=== PATIENT | male | born 2000 | race Caucasian/White ===

== ENCOUNTER 2022-12-28 18:43 | Emergency (ER) | payer OTHER, BC, SELFPAY ==
[2022-12-28 18:53] VITALS: BP 167/103; PULSE 82; RESP 18; TEMP 37.8; O2SAT 98; BMI 30.3
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
[2022-12-28] MEDS: Acetaminophen 325 MG TABLET 975 MG PO (21:14)
[2022-12-28] MEDS: Lidocaine 4 % Patch ADH..PATCH 1 PATCH TRANSDERMA (21:15)
[2022-12-28] MEDS: Ketorolac Tromethamine 15 MG/ML VIAL IM (21:15)
== END 2022-12-28 21:27 | disposition home or self-care (01) ==
PROVIDERS: Emergency Provider Student in an Organized Health Care Education/Training Program
DX: Z04.1 Encounter for examination and observation following transport accident (principal); M62.838 Other muscle spasm; M54.2 Cervicalgia
CPT/HCPCS: 96372; 99283; 99284; J1885

== ENCOUNTER 2024-07-03 01:00 | Emergency (ER) | payer BC, SELFPAY ==
[2024-07-03 01:26] VITALS: BP 122/73; PULSE 87; RESP 20; TEMP 36.4; O2SAT 98; BMI 34.0
[2024-07-03] MEDS: Fluorescein Sodium STRIP 1 STRIP EYE-RIGHT (05:39)
[2024-07-03] MEDS: Tetracaine HCl/PF 0.5% Oph Sol 4 ML DROPS 1 DROP EYE-RIGHT (05:39)
[2024-07-03] MEDS: Ketorolac Tromethamine 60 MG/2 ML VIAL IM (05:39)
--- NOTE | 2024-07-03 05:45 | ED_ITS ---
HPI - Eye Problem General Chief complaint: Eye Problems Stated complaint: dog stepped on eye and vision is blurry now Time Seen by Provider: 07/03/24 05:16 Source: patient Mode of arrival: ambulatory Limitations: no limitations History of Present Illness ED Provider: Dr. Liz Elam HPI Narrative: patient comes to the emergency room complaining of right-sided eye pain. Patient states that he was laying down in bed, his dog jumped on top of him and accidentally scratched his right eyeball with its paw patient states it is very painful and erythematous. Patient states that he can see, does not use contact lenses. Related Data Previous Rx's ?Medication ?Instructions ?Recorded cyclobenzaprine 5 mg tablet 5 mg PO BEDTIME PRN muscle spasm 12/28/22 #4 tabs ketorolac 10 mg tablet 10 mg PO Q6H PRN pain 5 days #20 12/28/22 tabs erythromycin 5 mg/gram (0.5 %) eye 0.5 inch ophthalmic (eye) TID #3.5 07/03/24 ointment grams ketorolac 0.4 % eye drops 1 drp ophthalmic (eye) QID PRN 07/03/24 pain 4 days #5 mL ketorolac 10 mg tablet 10 mg PO Q8H #12 tabs 07/03/24 Allergies Allergy/AdvReac Type Severity Reaction Status Date / Time No Known Allergies Allergy Verified 07/03/24 01:27 Review of Systems Review of Systems: Constitutional : No Weight loss, No Fever, No Chills, No Night Sweats, No Fatigue, No Malaise ENT/Mouth : No Hearing loss, No Ear Pain, No Nasal Congestion, No Sinus Pain, No Hoarseness, No sore throat, No Rhinorrhea, No Swallowing Difficulty Eyes: complaining of right eye pain, eyelid swelling, photophobia Cardiovascular : No Chest Pain, No SOB, No Dyspnea on Exertion, No Orthopnea, No Edema, No Palpitations Respiratory : No Cough, No Sputum, No Wheezing, No Smoke Exposure, No Dyspnea Gastrointestinal : No Nausea, No Vomiting, No Diarrhea, No Constipation, No abdominal Pain, No Hematochezia, No Melena Genitourinary : no irregular bleeding, No Dysuria, No Urinary Frequency, No Hematuria, No Urinary Incontinence, No Urgency, No Flank Pain, No Urinary Flow Changes, No Hesitancy Musculoskeletal : No joint pain, No Myalgias, No Joint Swelling Skin : No Skin Lesions, No rash Neuro : No Weakness, No Numbness, No Paresthesias, No Loss of Consciousness, No Dizziness, No Headache Psych : No Anxiety/Panic, No Depression, No SI/HI/AH/VH, No Social Issues, Heme/Lymph: No Bruising, No Bleeding,No Lymphadenopathy Endocrine : No Polyuria, No Polydipsia, No Temperature Intolerance [facility] Past Medical History Medical History Bipolar 1 disorder Social History Social History Smoked in Last 30 Days: Yes Use of substances other than those prescribed or required for medical reasons: Yes Substance Use Type: Marijuana Advance Directives: No Advance Directives Information Provided: Yes Physical Exam Vital Signs: Vital Signs: Last Vital Signs Temp 97.5 F 07/03/24 01:26 Pulse 87 07/03/24 01:26 Resp 20 07/03/24 01:26 BP 122/73 07/03/24 01:26 Pulse Ox 98 07/03/24 01:26 O2 Del Method Room Air 07/03/24 01:26 BMI result Body Mass Index 34.0 Const: Other: Appearance: Alert. Oriented X3. No acute distress. Eyes: Pupils equal, round and reactive to light. under Wood's lamp with fluorescein stain, I was able to visualize a U shaped corneal abrasion, negative Latrice sign ENT: Pharynx normal. Neck: Normal inspection. Neck supple. No lymph nodes noted. No crepitus CVS: Normal heart rate and rhythm. Pulses normal. Normal S1 and S2 Respiratory: No respiratory distress. Breath sounds normal. No Wheezing. No rales Abdomen: Soft and nontender. No rigidity. No distention. Skin: Skin warm and dry. Normal skin color. Normal skin turgor. Extremities: No lower extremity edema. No Lacerations. No Rash Neuro: Oriented X 3. No motor deficit. No sensory deficit. Moving all extremities. No slurred speech. CN 2 through 12 grossly intact Psych: calm, cooperative, normal affect Medications Administered Discontinued Medications Generic Name Dose Route Start Last Admin Trade Name Freq PRN Reason Stop Dose Admin Fluorescein Sodium 1 strip 07/03/24 05:16 07/03/24 05:39 Fluorescein Sodium Strip EYE-RIGHT 07/03/24 05:17 1 strip ONCE ONE Administration Ketorolac Tromethamine 60 mg 07/03/24 05:33 07/03/24 05:39 Ketorolac Tromethamine 60 Mg/2 Ml Vial IM 07/03/24 05:34 60 mg ONCE ONE Administration Tetracaine HCl 1 drop 07/03/24 05:16 07/03/24 05:39 Tetracaine Hcl/Pf 0.5% Oph Jennifer 4 Ml Drops EYE-RIGHT 07/03/24 05:17 1 drop ONCE ONE Administration Medical Decision Making Medical Decision Making MDM Narrative: I discussed the physical exam with the patient, patient has a corneal abrasion. Patient was given IM ketorolac Discharge Plan Discharge Clinical Impression: Corneal abrasion Patient Disposition: Home, Self-Care Instructions: Corneal Abrasion (ED) Additional Instructions: Do not use contact lenses for at least 1 week. Please follow-up with your primary care physician tomorrow. If you have any worsening or new symptoms, please return to the emergency room or call 911 Prescriptions: New erythromycin 5 mg/gram (0.5 %) ointment 0.5 inch ophthalmic (eye) TID Qty: 3.5 0RF ketorolac 0.4 % drops 1 drp ophthalmic (eye) QID PRN (Reason: pain) 4 Days Qty: 5 0RF ketorolac 10 mg tablet 10 mg PO Q8H Qty: 12 0RF Rx Instructions: do not use this medication with other NSAIDs including ibuprofen No Action ketorolac 10 mg tablet 10 mg PO Q6H PRN (Reason: pain) 5 Days Qty: 20 0RF Rx Instructions: Patient received Toradol in the emergency room. cyclobenzaprine 5 mg tablet 5 mg PO BEDTIME PRN (Reason: muscle spasm) Qty: 4 0RF Stand Alone Forms: Work/School Release Print Language: Lithuanian
[2024-07-03 05:50] VITALS: BP 122/73; PULSE 87; RESP 20; TEMP 36.4; O2SAT 98
== END 2024-07-03 05:50 | disposition home or self-care (01) ==
PROVIDERS: Emergency Provider Emergency Medicine
DX: S05.01XA Injury of conjunctiva and corneal abrasion without foreign body, right eye, initial encounter (principal); H53.8 Other visual disturbances; X58.XXXA Exposure to other specified factors, initial encounter; Y93.9 Activity, unspecified; Y92.9 Unspecified place or not applicable; Y99.8 Other external cause status
CPT/HCPCS: 96372; 99284; J1885

== ENCOUNTER 2024-10-13 12:24 | Inpatient (IN) | payer BC, SELFPAY ==
[2024-10-13 12:28] VITALS: BP 150/79; PULSE 96; RESP 18; TEMP 36.9; O2SAT 98; BMI 31.5
--- NOTE | 2024-10-13 12:29 | ED_ITS ---
HPI - General Adult General Chief complaint: Psychiatric Symptoms Stated complaint: crisis Time Seen by Provider: 10/13/24 12:38 Source: patient Mode of arrival: ambulatory Limitations: no limitations History of Present Illness ED Provider: Nancy Ye PA-C HPI narrative: Patient is a 24 year old assigned male at with a history of Bipolar disorder presenting to the emergency department today with increased paranoia, suicidal ideation, and possible ananda. Patient states that over the last 5 days he has only slept a collective 16 hours and feels as though he is becoming more paranoia and manic. Patient states that he woke up this morning and felt as though he could fight god and states that he has had thoughts of hurting himself. Patient states that he is on lamictal and is taking it as directed. Patient denies any dizziness, lightheadedness, abdominal pain, nausea, vomiting, fever, chills, blurry vision, double vision, loss of vision, chest pain, difficulty breathing, shortness of breath, back pain, night sweats, pain with urination, increased urinary frequency, increased urinary urgency, blood in his urine or stool, syncope or a near syncopal episode, recent trauma or falls, bowel incontinence, bladder incontinence, or any other complaints at this time. 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 Relieving factors: none Exacerbating factors: none Associated symptoms: denies other symptoms Treatments prior to arrival: none Related Data Home Medications ?Medication ?Instructions ?Recorded ?Confirmed albuterol sulfate 90 mcg/actuation 2 puff inhalation Q4-6H PRN 10/13/24 10/13/24 aerosol inhaler wheezing cetirizine 10 mg tablet (Zyrtec) 10 mg PO DAILY PRN Allergy Symptoms 10/13/24 10/13/24 lamotrigine 100 mg tablet 100 mg PO DAILY 10/13/24 10/13/24 naproxen 250 mg tablet 250 mg PO BID PRN Pain 10/13/24 10/13/24 trazodone 100 mg tablet 50 - 100 mg PO BEDTIME PRN insomnia 10/14/24 10/14/24 Allergies Allergy/AdvReac Type Severity Reaction Status Date / Time aripiprazole Allergy Depression Verified 10/13/24 12:30 sertraline [From Zoloft] Allergy Depression Verified 10/13/24 12:30 Review of Systems 2 Constitutional: Constitutional: Reports no additional constitutional complaints, Denies chills, Denies fever(s) and Denies night sweats Eyes: Eyes: Reports no additional eye complaints, Denies blurry vision, Denies change in vision, Denies diplopia, Denies eye discharge, Denies loss of vision and Denies eye pain ENT: Denies dizziness Cardiovascular: Cardiovascular: Reports no additional cardiovascular complaints, Denies chest pain, Denies lightheadedness, Denies Loss of Consciousness and Denies dyspnea Respiratory: Respiratory: Reports no additional respiratory complaints and Denies dyspnea Gastrointestinal: Gastrointestinal: Reports no additional gastrointestinal complaints, Denies abdominal pain, Denies melena, Denies hematochezia, Denies change in bowel habits and Denies change in stool character Comments: left buttock cyst Genitourinary: Genitourinary: Reports no additional male genitourinary complaints, Denies hematuria, Denies oliguria, Denies difficulty urinating, Denies dysuria, Denies urinary frequency, Denies urinary hesitancy, Denies urinary incontinence and Denies urinary urgency Musculoskeletal: Musculoskeletal: Reports no additional musculoskeletal complaints, Denies numbness and Denies tingling Neurologic: Denies dizziness, Denies loss of vision, Denies numbness and Denies tingling Psychiatric: Psychiatric: Reports abnormal sleep pattern, Reports paranoia, Denies homicidal ideation and Reports suicidal ideation Endocrine: Endocrine: Reports no additional endocrine complaints Hematologic/Lymphatic: Hematologic/Lymphatic: Reports no additional hematologic/lymphatic complaints Allergic/Immunologic: Allergic/Immunologic: Reports no additional allergic/immunologic complaints [facility] Past Medical History Attestation statement: The following information was validated with the patient. Source: old records reviewed and nursing notes reviewed Medical History Bipolar 1 disorder Social History Social History Alcohol intake: current Alcohol intake frequency: does not drink Smoked in Last 30 Days: No Use of substances other than those prescribed or required for medical reasons: No Substance Use Type: Marijuana Advance Directives: No Advance Directives Information Provided: Yes Physical Exam ED Vital Signs: Vital Signs - 24 hr 10/13/24 12:28 10/13/24 20:00 10/14/24 06:21 Temperature 98.4 F 97.9 F 97.7 F Pulse Rate 96 71 66 Respiratory Rate 18 17 18 Blood Pressure 150/79 H 153/91 H 141/84 H Pulse Oximetry 98 98 99 Oxygen Delivery Method Room Air Room Air Room Air BMI result Body Mass Index 31.5 Const General: cooperative, no acute distress, alert and awake Nutritional Appearance: well nourished Orientation/consciousness: patient oriented x3 [facility] Head: Yes normal to inspection and Yes atraumatic Ears: hearing grossly normal bilaterally and external ears normal General nose exam: Normal external nose present, no nasal discharge noted and no epistaxis Face and sinus: Yes normal facial exam, No abrasion and No laceration Mouth: Normal oral and palatal mucosa present, no drooling and no muffled voice Eyes General: appearance normal, both eyes and all related structures Periorbital: periorbital findings normal Eyelids: Yes eyelids normal Conjunctivae: conjunctivae normal Pupils: Equal, round and reactive pupils present EOM: EOMs intact bilaterally Neck Neck: Yes normal visual inspection, Yes full ROM and Yes no lymphadenopathy Resp Effort & Inspection: normal respiratory effort and able to speak in complete sentences Skin Full body images: 2 1. Small skin tag / wart like structure with no active draining Neuro General: patient oriented x3, moves all extremities and CN's II-XI intact bilaterally Cranial nerves: Yes Equal, round and reactive pupils present Cognition (Neuro): normal cognition Extrem General: Yes normal to inspection, Yes full ROM and Yes capillary refill normal Psych Appearance: grossly normal Mental Status: mental status grossly normal Affect: normal affect Attitude: cooperative Thought content: Suicidality present Course Course Course Narrative: RME performed by Nancy Ye PA-C. Patient is a 24 year old assigned male at presenting to the emergency department with suicidal ideation and concerns of naanda. Patient states he was diagnosed bipolar on an outpatient basis and is now on lamotrigine but he woke up this morning having some suicidal ideation and ananda - feeling as though he can fight god . Detailed physical exam and review of systems are deferred to the boiler repair supervisor. Labs ordered. safety belt installer aware. Reevaluation(s) Reevaluation #1: Time: 08:09 Date: 10/14/24 Provider: Abrahan Philip MD Patient in physician observation for psychiatric evaluation.? No acute events reported overnight. No current complaints. VS stable.? Patient is in bed search status/pending CARE team evaluation. Will continue to monitor. Reevaluation #2: October 14, 2024 11:20 Am patient will be admitted to the psychiatric unit this and the ED observation status Time: 11:20 Medications Administered Generic Name Dose Route Start Last Admin Trade Name Freq PRN Reason Stop Dose Admin Lamotrigine 100 mg 10/13/24 21:00 10/13/24 20:11 Lamotrigine 100 Mg Tablet PO 100 mg BEDTIME CHEMA Administration Trazodone HCl 50 mg 10/13/24 16:47 10/13/24 20:02 Trazodone Hcl 50 Mg Tablet PO 50 mg BEDTIME PRN Administration Insomnia Discontinued Medications Generic Name Dose Route Start Last Admin Trade Name Freq PRN Reason Stop Dose Admin Benzocaine 1 lozenge 10/13/24 19:31 10/13/24 20:01 Throat Lozenge, Medicated Lozenge MUCOUS MEM 10/13/24 19:32 1 lozenge ONCE ONE Administration Loratadine 10 mg 10/13/24 21:45 10/13/24 21:55 Loratadine 10 Mg Tablet PO 10/13/24 21:46 10 mg ONCE ONE Administration Lorazepam 1 mg 10/13/24 15:00 10/13/24 15:26 Lorazepam 1 Mg Tablet PO 10/13/24 15:01 1 mg ONCE ONE Administration Nicotine 21 mg 10/13/24 19:48 10/13/24 19:59 Nicotine 21 Mg Patch.Td24 TRANSDERMA 10/13/24 19:49 21 mg ONCE ONE Administration Medical Decision Making Medical Decision Making MDM Narrative: Patient is a 24 year old assigned male at with a history of Bipolar disorder presenting to the emergency department today with increased paranoia, suicidal ideation, and possible ananda. Patient's physical exam was as noted in the physical exam portion of this note. Patient's cyst on the left buttock appears flat and almost wart like. It is not fluctuant and does not need drained at this time. Patient's blood work was unremarkable. Patient's urine showed no acute process. Patient's EKG was unremarkable. Patient was evaluated by the CARE team who recommended hospitalization for psychiatric stabilization. I explained my physical exam findings as well as all test results to the patient. I answered all questions asked by the patient. Patient will remain in observation until he is admitted here at [facility] for continued psychiatric care or he is transferred to an appropriate psychiatric inpatient facility. Note: I spoke with the patient about his buttock cyst / growth / wart and recommended he follow up on an outpatient basis with a general surgeons office to discuss removal. Differential Diagnosis Differential Diagnoses: The differential diagnosis associated with the presentation includes Bipolar disorder Acute psychosis Suicidal ideation Admission/Observation Consideration of admission/observation: Escalation of care including admission/observation considered Patient will remain in observation until he is admitted here at [facility] for continued psychiatric care or he is transferred to an appropriate psychiatric inpatient facility. Consult Healthcare Provider Management of the patient was discussed with: Behavioral Health Provider (Spoke with the CARE team as noted in the MDM Rationale portion of this note. ) Lab Data [facility] Lab Attestation statement: I reviewed the patient's lab results. My interpretation of these results are in the MDM Rationale portion of this note. 10/13/24 12:46 10/13/24 12:46 Labs: Lab Results 10/13/24 10/13/24 10/13/24 Range/Units 12:46 15:17 19:31 WBC 7.9 (4.8-10.8) X10*3/uL RBC 5.19 (4.60-5.80) X10*6/uL Hgb 14.9 (14.0-18.0) g/dl Hct 41.7 L (42.0-52.0) % MCV 80.3 (80.0-98.0) fL MCH 28.7 (27.0-33.0) pg MCHC 35.7 (31.0-36.0) g/dl RDW 12.3 (11.0-16.0) % Plt Count 307 (160-400) X10*3/uL MPV 10.3 (9.4-12.4) fL Immature Gran % (Auto) 0.3 (0.0-0.4) % Neut % (Auto) 58.7 (45-73) % Lymph % (Auto) 32.2 (20-40) % Whiteside % (Auto) 7.8 (2-11) % Eos % (Auto) 0.4 (0-4) % Baso % (Auto) 0.6 (0-2) % Lymph # (Auto) 2.6 (1.2-4.9) X10*3/uL Whiteside # (Auto) 0.6 (0.1-1.2) X10*3/uL Eos # (Auto) 0.0 (0.0-0.4) X10*3/uL Baso # (Auto) 0.1 (0.0-0.2) X10*3/uL Abs Immat Gran (auto) 0.02 (0.00-0.03) X10*3/uL Absolute Neuts (auto) 4.6 (2.0-8.3) x10*3/uL Absolute Nucleated RBC 0.000 (0.0-0.012) X10*3/uL Nucleated RBC % (auto) 0.0 (0.0-0.2) /100WBC Sodium 140 (135-145) mmol/L Potassium 3.6 (3.3-5.1) mmol/L Chloride 109 H (96-108) mmol/L Carbon Dioxide 23 (22-29) mmol/L Anion Gap 12 (12-20) BUN 11 (9-16) mg/dL Creatinine 1.00 (0.5-1.4) mg/dL Estim Creat Clear Calc 130.7 Estimated GFR > 60 Random Glucose 124 H (60-115) mg/dL Calcium 9.5 (8.4-10.2) mg/dL Total Bilirubin 0.5 (0.0-1.0) mg/dL AST 28 (5-37) U/L ALT 31 (0-40) U/L Alkaline Phosphatase 51 (39-117) U/L Total Protein 7.6 (6.5-8.0) g/dL Albumin 4.9 (3.5-5.0) g/dL Urine Color Yellow Urine Appearance Turbid Urine pH 8.0 (5.0-9.0) Ur Specific [place] >= 1.030 H (1.005-1.025) Urine Protein Trace (Neg-Trace) mg/dL Urine Glucose (UA) Negative (Negative) mg/dL Urine Ketones Trace (Negative) mg/dL Urine Blood Negative (Negative) Urine Nitrite Negative (Negative) Ur Leukocyte Esterase Negative (Negative) Salicylates < 5.0 L (15-30) mg/dL Urine Opiates Screen Not Detected (Not Detect) Ur Buprenorphine Scrn Not Detected (Not Detect) ng/mL Ur Oxycodone Screen Not Detected (Not Detect) ng/mL Urine Methadone Screen Not Detected (Not Detect) ng/mL Urine Fentanyl Screen Not Detected (Not Detect) Acetaminophen < 3 (<30) mcg/mL Ur Barbiturates Screen Not Detected (Not Detect) Ur Phencyclidine Scrn Not Detected (Not Detect) Ur Amphetamines Screen Not Detected (Not Detect) U Benzodiazepines Scrn Not Detected (Not Detect) Urine Cocaine Screen Not Detected (Not Detect) U Marijuana (THC) Screen POSITIVE H (Not Detect) Ethyl Alcohol < 10 mg/dL COVID-19 (MICAELA) Negative (Negative) COVID-19 Clin Com See Note S. pyogenes GrpA TOMAS Negative (Negative) Independent Interpretation I performed an independent interpretation of an: EKG Interpretation: I independently interpreted this EKG and am in agreement with the below findings: Vent. Rate: 88 BPM Atrial Rate: 88 BPM P-R Int: 124 ms QRS Dur: 86 ms QT Int: 344 ms P-R-T Axes: 61 62 50 degrees QTcB Int: 416 ms Normal sinus rhythm with sinus arrhythmia Normal ECG No previous ECGs available DD/ 1240 Critical Care Time Critical Care Time Critical Care Time: Yes Total Critical Care Time: 34 Attestation: I spent 34 minutes of Critical Care Time with this patient. This does not include time spent on separately reported billable procedures. Discharge Plan Discharge Clinical Impression: Suicidal ideation, Cyst of buttocks Bipolar disorder Qualifiers: Active/Remission status: currently active Current bipolar episode type: mixed C urrent episode severity: moderate Qualified Code(s): F31.62 - Bipolar disorder, current episode mixed, moderate Patient Disposition: Admitted As Inpatient Interventions: [place]-Suicide Risk Severity Scale Last Done: 10/13/24 14:11
--- NOTE | 2024-10-13 12:32 | ECG_ITS ---
Test Reason : medical clearance Blood Pressure : */* mmHG Vent. Rate : 88 BPM Atrial Rate : 88 BPM P-R Int : 124 ms QRS Dur : 86 ms QT Int : 344 ms P-R-T Axes : 61 62 50 degrees QTcB Int : 416 ms Normal sinus rhythm with sinus arrhythmia Normal ECG No previous ECGs available Referred By: Nancy Ye Electronically Signed By: Marc Allen
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
[2024-10-13 12:54] LABS: MANUAL DIFF FLAG NO
[2024-10-13 12:57] LABS: Basophils Absolute Auto 0.1 X10*3/uL (0.0-0.2); Basophils Percent Auto 0.6 % (0-2); Eosinophils Percent Auto 0.4 % (0-4); Hematocrit 41.7 % (42.0-52.0); Hemoglobin 14.9 g/dl (14.0-18.0); Imm Gran Abs Auto 0.02 X10*3/uL (0.00-0.03); Imm Gran Pct Auto 0.3 % (0.0-0.4); Lymphocytes Absolute Auto 2.6 X10*3/uL (1.2-4.9); Lymphocytes Percent Auto 32.2 % (20-40); Mean Corpuscular HGB Conc 35.7 g/dl (31.0-36.0); Mean Corpuscular Hemoglobin 28.7 pg (27.0-33.0); Mean Corpuscular Volume 80.3 fL (80.0-98.0); Mean Platelet Volume 10.3 fL (9.4-12.4); Monocytes Absolute Auto 0.6 X10*3/uL (0.1-1.2); Monocytes Percent Auto 7.8 % (2-11); Neutrophils Absolute Auto 4.6 x10*3/uL (2.0-8.3); Neutrophils Percent Auto 58.7 % (45-73); Platelet Count 307 X10*3/uL (160-400); Red Blood Count 5.19 X10*6/uL (4.60-5.80); Red Cell Distribution Width 12.3 % (11.0-16.0); White Blood Count 7.9 X10*3/uL (4.8-10.8)
[2024-10-13 13:08] LABS: COVID-19 Test Negative (Negative); IDNOW Serial# 58CA691E
[2024-10-13 13:20] LABS: Acetaminophen LAB < 3 mcg/mL (<30); Alanine Aminotransferase 31 U/L (0-40); Albumin Level 4.9 g/dL (3.5-5.0); Alkaline Phosphatase 51 U/L (39-117); Anion Gap 12 (12-20); Aspartate Amino Transferase 28 U/L (5-37); Bilirubin Total 0.5 mg/dL (0.0-1.0); Blood Urea Nitrogen 11 mg/dL (9-16); Calcium 9.5 mg/dL (8.4-10.2); Carbon Dioxide 23 mmol/L (22-29); Chloride 109 mmol/L (96-108); Creatinine Clr Calc Pharmacy 130.7; Estimated Glomerular Filt Rate > 60; Ethanol < 10 mg/dL; Glucose Random 124 mg/dL (60-115); Potassium 3.6 mmol/L (3.3-5.1); Salicylate < 5.0 mg/dL (15-30); Sodium 140 mmol/L (135-145); Total Protein 7.6 g/dL (6.5-8.0)
--- NOTE | 2024-10-13 13:54 | MHC.CARE ---
Pt meets the criteria for IPLOC and a Section 12a is in chart. ED provider in agreement.
[2024-10-13 15:25] LABS: Appearance Urine Turbid; Color Urine Yellow; Glucose Urine UA Negative (Negative); Leukocyte Esterase Urine Negative (Negative); Nitrite Urine Negative (Negative); Specific Gravity - Urine >= 1.030 (1.005-1.025); Urine Blood Negative (Negative); Urine Ketones Trace mg/dL (Negative); Urine Protein Trace mg/dL (Neg-Trace)
[2024-10-13] MEDS: LORazepam 1 MG TABLET PO (15:26)
[2024-10-13 15:34] LABS: Amphetamine Screen Urine Not Detected (Not Detect); Barbiturates, Urine Not Detected (Not Detect); Benzodiazepines Screen Urine Not Detected (Not Detect); Buprenorphine Scr Not Detected (Not Detect); Cannabinoid Screen Urine POSITIVE (Not Detect); Cocaine Screen Urine Not Detected (Not Detect); Fentanyl, urine Not Detected (Not Detect); Methadone Screen, Urine Not Detected (Not Detect); Opiate Screen Urine Not Detected (Not Detect); Oxycodone Screen Urine Not Detected (Not Detect); Phencyclidine Screen Urine Not Detected (Not Detect)
--- OUTSIDE RECORDS SUMMARY | 2024-10-13 15:58 | XMS_ITS ---
Author Name [facility] Organization Unknown Care Team Organization Name Specialty Phone Email Start Date End Da te [facility] Not Disclosed Primary Care 11/11/2023 [facility] Not Disclosed Primary Care 11/10/2023
--- NOTE | 2024-10-13 16:35 | PC.NURSE ---
Pt appears to be sleeping, RR even and unlabored, no apparent distress noted
--- NOTE | 2024-10-13 19:15 | PC.NURSE ---
Addendum entered by Mary Johnson 10/13/24 20:09: Pt A&Ox3, requesting lozenges for sore throat and nicotine patch. Pt swabbed for strep. Provider Claudia Washington made aware. New orders given per JUN. Original Note: This marketing copywriter assumed care of this Pt at 1900.
[2024-10-13 19:49] LABS: IDNOW Serial# 6674DD1D; Strep A Nucleic Acid Negative (Negative)
[2024-10-13] MEDS: Nicotine 21 MG PATCH.TD24 TRANSDERMA (19:59)
[2024-10-13 20:00] VITALS: BP 153/91; PULSE 71; RESP 17; TEMP 36.6; O2SAT 98
[2024-10-13] MEDS: Throat Lozenge, Medicated LOZENGE 1 LOZENGE MUCOUS MEM (20:01)
[2024-10-13] MEDS: traZODone HCL 50 MG TABLET PO (20:02)
[2024-10-13] MEDS: lamoTRIgine 100 MG TABLET PO (20:11)
--- NOTE | 2024-10-13 20:33 | PC.NURSE ---
this rn assumed care of pt , pt resting in stretcher, no acute distress noted
[2024-10-13] MEDS: Loratadine 10 MG TABLET PO (21:55)
[2024-10-14 06:21] VITALS: BP 141/84; PULSE 66; RESP 18; TEMP 36.5; O2SAT 99
--- NOTE | 2024-10-14 08:08 | PHA.MEDREC ---
Pharmacy Consult ? Medication Reconciliation Pharmacy has reviewed the medication reconciliation done by RN. Claims Utilized
--- NOTE | 2024-10-14 11:13 | PC.NURSE ---
Assumed care of this patient at 1100, patient resting quietly in BH2, c/o neck pain, will medicate per JUN once delivered by pharmacy. Patient currently assigned bed on M3 awaiting report/transfer.
[2024-10-14 11:53] VITALS: BP 161/98; PULSE 87; RESP 18; TEMP 36.7; O2SAT 100
[2024-10-14 13:01] VITALS: BMI 31.2
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
[2024-10-14] MEDS: Nicotine Polacrilex 2 MG GUM 4 MG BUCCAL ×3 (13:26→18:35)
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
[2024-10-14] MEDS: OLANZapine 5 MG TABLET PO (16:57)
[2024-10-14] MEDS: Nicotine 21 MG PATCH.TD24 TRANSDERMA (18:36)
[2024-10-14 20:25] VITALS: BP 140/85; PULSE 93; RESP 16; TEMP 36.9; O2SAT 97
[2024-10-14] MEDS: traZODone HCL 100 MG TABLET PO (20:34)
[2024-10-14] MEDS: Prazosin HCL 1 MG CAPSULE PO (20:34)
[2024-10-14] MEDS: guanFACINE HCl ER 1 MG TAB.ER.24H PO (20:36)
[2024-10-14] MEDS: lamoTRIgine 25 MG TABLET 125 MG PO (20:36)
[2024-10-14] MEDS: Loratadine 10 MG TABLET PO (20:37)
[2024-10-15 08:00] VITALS: BP 120/78; PULSE 90; RESP 16; TEMP 36.3; O2SAT 97
[2024-10-15 08:11] LABS: Estimated Average Glucose 111 mg/dL; Hemoglobin A1c % 5.5 % (<6.0); Total Hemoglobin (HGBA1C) 3638.7942 umol/L
[2024-10-15] MEDS: Nicotine 21 MG PATCH.TD24 TRANSDERMA (08:14)
[2024-10-15 08:21] LABS: Alanine Aminotransferase 34 U/L (0-40); Albumin Level 4.6 g/dL (3.5-5.0); Alkaline Phosphatase 52 U/L (39-117); Anion Gap 12 (12-20); Aspartate Amino Transferase 26 U/L (5-37); Bilirubin Total 0.3 mg/dL (0.0-1.0); Blood Urea Nitrogen 13 mg/dL (9-16); Calcium 9.6 mg/dL (8.4-10.2); Carbon Dioxide 24 mmol/L (22-29); Chloride 107 mmol/L (96-108); Cholesterol 187 mg/dL (<200); Creatinine Clr Calc Pharmacy 123.8; Estimated Glomerular Filt Rate > 60; Glucose Random 136 mg/dL (60-115); HDL Cholesterol 31 mg/dL (>40); LDL Cholesterol Calculated 124 mg/dL (<100); Potassium 3.9 mmol/L (3.3-5.1); Sodium 139 mmol/L (135-145); Total Protein 7.1 g/dL (6.5-8.0); Triglycerides 161 mg/dL (<150)
--- NOTE | 2024-10-15 09:22 | P.PNPSI_ITS ---
Subjective Subjective Date of Service: 10/15/24 Reason For Visit: Crisis Subjective Notes: Conditional Voluntary Interim History: Active on unit, social with peers. attending groups. Patient reports feeling a lot better ; pt stated, I was able to sleep and not have any nightmares . denies side effects from medications. denies SI/HI/VH/AH. Pt is requesting to discharge on Sunday to be able to return to work. Plan to discharge if continues to improve. Continue current tx plan. Medication Compliance: Yes Side effects from medications: No Attending Groups: Yes Mental Status Exam Mental Status Exam Narrative: Pt is alert and oriented; behavior is cooperative and calm; dressed in casual attire; mood is described as a lot better ; eye contact appropriate; Speech is normal rate, volume and not pressured; thought process is organized; Thought content is on tx; denies SI/HI/VH/AH. Diagnostics Vital Signs (24Hr): Vital Signs - 24 hr 10/14/24 11:53 10/14/24 20:25 10/15/24 08:00 Temperature 98.1 F 98.5 F 97.4 F Pulse Rate 87 93 90 Respiratory Rate 18 16 16 Blood Pressure 161/98 H 140/85 H 120/78 Pulse Oximetry 100 97 97 Oxygen Delivery Method Room Air Room Air Room Air BMI result Body Mass Index 31.2 Labs 10/13/24 12:46 10/15/24 07:43 Labs: Laboratory Results - last 48 hr 10/13/24 10/13/24 10/13/24 12:46 15:17 19:31 WBC 7.9 RBC 5.19 Hgb 14.9 Hct 41.7 L MCV 80.3 MCH 28.7 MCHC 35.7 RDW 12.3 Plt Count 307 MPV 10.3 Immature Gran % (Auto) 0.3 Neut % (Auto) 58.7 Lymph % (Auto) 32.2 [place] % (Auto) 7.8 Eos % (Auto) 0.4 Baso % (Auto) 0.6 Lymph # (Auto) 2.6 [place] # (Auto) 0.6 Eos # (Auto) 0.0 Baso # (Auto) 0.1 Abs Immat Gran (auto) 0.02 Absolute Neuts (auto) 4.6 Absolute Nucleated RBC 0.000 Nucleated RBC % (auto) 0.0 Sodium 140 Potassium 3.6 Chloride 109 H Carbon Dioxide 23 Anion Gap 12 BUN 11 Creatinine 1.00 Estim Creat Clear Calc 130.7 Estimated GFR > 60 Random Glucose 124 H Estimat Average Glucose Hemoglobin A1c % Calcium 9.5 Total Bilirubin 0.5 AST 28 ALT 31 Alkaline Phosphatase 51 Total Protein 7.6 Albumin 4.9 Triglycerides Cholesterol LDL Cholesterol, Calc HDL Cholesterol Urine Color Yellow Urine Appearance Turbid Urine pH 8.0 Ur Specific [place] >= 1.030 H Urine Protein Trace Urine Glucose (UA) Negative Urine Ketones Trace Urine Blood Negative Urine Nitrite Negative Ur Leukocyte Esterase Negative Salicylates < 5.0 L Urine Opiates Screen Not Detected Ur Buprenorphine Scrn Not Detected Ur Oxycodone Screen Not Detected Urine Methadone Screen Not Detected Urine Fentanyl Screen Not Detected Acetaminophen < 3 Ur Barbiturates Screen Not Detected Ur Phencyclidine Scrn Not Detected Ur Amphetamines Screen Not Detected U Benzodiazepines Scrn Not Detected Urine Cocaine Screen Not Detected U Marijuana (THC) Screen POSITIVE H Ethyl Alcohol < 10 COVID-19 (MICAELA) Negative COVID-19 Clin Com See Note S. pyogenes GrpA TOMAS Negative 10/15/24 07:43 WBC RBC Hgb Hct MCV MCH MCHC RDW Plt Count MPV Immature Gran % (Auto) Neut % (Auto) Lymph % (Auto) [place] % (Auto) Eos % (Auto) Baso % (Auto) Lymph # (Auto) [place] # (Auto) Eos # (Auto) Baso # (Auto) Abs Immat Gran (auto) Absolute Neuts (auto) Absolute Nucleated RBC Nucleated RBC % (auto) Sodium 139 Potassium 3.9 Chloride 107 Carbon Dioxide 24 Anion Gap 12 BUN 13 Creatinine 1.05 Estim Creat Clear Calc 123.8 Estimated GFR > 60 Random Glucose 136 H Estimat Average Glucose 111 Hemoglobin A1c % 5.5 Calcium 9.6 Total Bilirubin 0.3 AST 26 ALT 34 Alkaline Phosphatase 52 Total Protein 7.1 Albumin 4.6 Triglycerides 161 H Cholesterol 187 LDL Cholesterol, Calc 124 H HDL Cholesterol 31 L Urine Color Urine Appearance Urine pH Ur Specific [place] Urine Protein Urine Glucose (UA) Urine Ketones Urine Blood Urine Nitrite Ur Leukocyte Esterase Salicylates Urine Opiates Screen Ur Buprenorphine Scrn Ur Oxycodone Screen Urine Methadone Screen Urine Fentanyl Screen Acetaminophen Ur Barbiturates Screen Ur Phencyclidine Scrn Ur Amphetamines Screen U Benzodiazepines Scrn Urine Cocaine Screen U Marijuana (THC) Screen Ethyl Alcohol COVID-19 (MICAELA) COVID-19 Clin Com S. pyogenes GrpA TOMAS Medications Medications Current Medications Acetaminophen (Acetaminophen 325 Mg Tablet) 650 mg PO Q6H PRN PRN Reason: Headache/Pain, Scale 1-10 Al Hydroxide/Mg Hydroxide (Magnesium Hydrox/Alum Hydrox 30 Ml Oral.Susp) 30 ml PO Q6H PRN PRN Reason: Heartburn/Nausea Albuterol Sulfate (Albuterol Sulfate 90 Mcg 8 Gm Inhaler) 2 puff INHALE Q4H PRN PRN Reason: wheezing Guanfacine HCl (Guanfacine Hcl Er 1 Mg Tab.Er.24h) 1 mg PO BEDTIME CHEMA Last Admin: 10/14/24 20:36 Dose: 1 mg Hydroxyzine HCl (Hydroxyzine Hcl 25 Mg Tablet) 25 mg PO Q6H PRN PRN Reason: mild anxiety Lamotrigine (Lamotrigine 25 Mg Tablet) 125 mg PO BEDTIME CHEMA Last Admin: 10/14/24 20:36 Dose: 125 mg Loratadine (Loratadine 10 Mg Tablet) 10 mg PO DAILY PRN PRN Reason: Allergy Symptoms Last Admin: 10/14/24 20:37 Dose: 10 mg Magnesium Hydroxide (Milk Of Magnesia 30 Ml Oral.Susp) 30 ml PO DAILY PRN PRN Reason: Constipation Naproxen (Naproxen 250 Mg Tablet) 250 mg PO BID PRN PRN Reason: Pain, Mild (Pain Scale 1-3) Nicotine (Nicotine 21 Mg Patch.Td24) 21 mg TRANSDERMA DAILY CHEMA Last Admin: 10/15/24 08:14 Dose: 21 mg Nicotine Polacrilex (Nicotine Polacrilex 2 Mg Gum) 4 mg BUCCAL Q2H PRN PRN Reason: Nicotine Cravings Last Admin: 10/14/24 18:35 Dose: 4 mg Olanzapine (Olanzapine 5 Mg Tablet) 5 mg PO Q4H PRN PRN Reason: agitation Last Admin: 10/14/24 16:57 Dose: 5 mg Prazosin HCl (Prazosin Hcl 1 Mg Capsule) 1 mg PO BEDTIME CHEMA; Protocol Last Admin: 10/14/24 20:34 Dose: 1 mg Trazodone HCl (Trazodone Hcl 100 Mg Tablet) 100 mg PO BEDTIME PRN PRN Reason: Insomnia Last Admin: 10/14/24 20:34 Dose: 100 mg Allergies Allergies Allergy/AdvReac Type Severity Reaction Status Date / Time aripiprazole Allergy Depression Verified 10/13/24 12:30 sertraline (From Zoloft) Allergy Depression Verified 10/13/24 12:30 Assessment & Plan Assessment & Plan (1) Bipolar disorder: Qualifiers: Active/Remission status: currently active Current bipolar episode type: mixed Current episode severity: moderate Qualified Code(s): F31.62 - Bipolar disorder, current episode mixed, moderate Status: Acute Code(s): F31.9 - Bipolar disorder, unspecified (2) PTSD (post-traumatic stress disorder): Status: Acute Code(s): F43.10 - Post-traumatic stress disorder, unspecified Plan Patient is a 24-year-old male with history of bipolar disorder and PTSD who self presented to ER due to suicidal ideation secondary to feeling manic, angry and paranoid . Plan: CV 15 minute safety checks Continue home medications Increase lamictal to 125mg PO bedtime Start: Prazosin 1mg PO bedtime Guanfacine 1mg PO bedtime obtain collateral encourage groups discharge planning 10/15: Active on unit, social with peers. attending groups. Patient reports feeling a lot better ; pt stated, I was able to sleep and not have any nightmares . denies side effects from medications. denies SI/HI/VH/AH. Pt is requesting to discharge on Sunday to be able to return to work. Plan to discharge if continues to improve. Continue current tx plan. Patient educated on: diagnosis, medication risk/benefits and therapeutic strategies Reason for continued inpatient stay Substantial Risk for: med/psych decompensation Time Spent With Patient Time: Total time managing care of this patient today _20___ minutes.
[2024-10-15] MEDS: Nicotine Polacrilex 2 MG GUM 4 MG BUCCAL ×3 (11:36→20:53)
--- NOTE | 2024-10-15 15:53 | HO.PM.IMCN ---
History of Present Illness Data of Consult Service Date: 10/15/24 Primary Care Provider: Unknown Physician HPI Reason for consult: Ear pain 24-year-old male with past medical history of PTSD, bipolar disorder, buttocks cyst, and suicidal ideation. Is seen today for reports of ear pain. Patient reports that he has right ear ringing on occasion. This has been going on for the past 3-4 years. 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 Patient reports a history of tubes in his ears at age 8-9 as well as seasonal allergies. He has some nasal congestion, on exam he has no lymphadenopathy, bilateral eardrums are within normal limits. Small amount of dried cerumen in ear canals not obscuring his eardrums. He denies any fever or chills, denies any shortness of breath or chest pain. Patient reports that he takes an allergy pill, has some postnasal drip. Reports that he has brief periods of being unable to hear followed by ringing which is not continuous and lasts for few seconds at a time. Patient reports that he was told he had some swelling in his feet on admission. On exam he has no edema, positive pedal pulses, positive sensation. Review of Systems Review of Systems: Yes all other systems are reviewed and are negative [facility] Medical History Bipolar 1 disorder Social History Household Members: Significant Other Housing: Apartment Do you presently have visiting nurse or other home services: No Alcohol intake: current Alcohol intake frequency: does not drink Patient Tobacco Use Status: Current everyday Tobacco user Tobacco use type: Cigarette Cigarette Packs Per Day: 2 Cigarettes Per Day: 40.0 Smoked in Last 30 Days: Yes Patient Interested in Nicotine Replacement: Yes Patient Given Instructions on How to Stop Smoking: No Second Hand Smoke Exposure: Yes Use of substances other than those prescribed or required for medical reasons: No Substance Use Type: Marijuana Currently Displaying Signs/Symptoms of Drug Intoxication Withdrawal: No Have you been hit, kicked, punched, or otherwise hurt by someone within the past year? If so, by whom?: No Do you feel safe in your current relationship?: Yes Is there a partner from a previous relationship who is making you feel unsafe now?: Yes Are you made to feel afraid or neglected: No Advance Directives: No Advance Directives Information Provided: Yes Do you have thoughts of harming others: None Do you have a plan to hurt others: No Plan Recently lost weight without trying: Yes How much weight loss: 24-33 pounds Eating poorly because of decreased appetite: No Nutrition screen score: 5 Poor oral hygiene: Yes service: No Sexual orientation: Straight/Heterosexual Meds Allergies Allergy/AdvReac Type Severity Reaction Status Date / Time aripiprazole Allergy Depression Verified 10/13/24 12:30 sertraline (From Zoloft) Allergy Depression Verified 10/13/24 12:30 Active Medications: Current Medications Acetaminophen (Acetaminophen 325 Mg Tablet) 650 mg PO Q6H PRN PRN Reason: Headache/Pain, Scale 1-10 Al Hydroxide/Mg Hydroxide (Magnesium Hydrox/Alum Hydrox 30 Ml Oral.Susp) 30 ml PO Q6H PRN PRN Reason: Heartburn/Nausea Albuterol Sulfate (Albuterol Sulfate 90 Mcg 8 Gm Inhaler) 2 puff INHALE Q4H PRN PRN Reason: wheezing Guanfacine HCl (Guanfacine Hcl Er 1 Mg Tab.Er.24h) 1 mg PO BEDTIME [facility] Last Admin: 10/14/24 20:36 Dose: 1 mg Hydroxyzine HCl (Hydroxyzine Hcl 25 Mg Tablet) 25 mg PO Q6H PRN PRN Reason: mild anxiety Lamotrigine (Lamotrigine 25 Mg Tablet) 125 mg PO BEDTIME CHEMA Last Admin: 10/14/24 20:36 Dose: 125 mg Loratadine (Loratadine 10 Mg Tablet) 10 mg PO DAILY PRN PRN Reason: Allergy Symptoms Last Admin: 10/14/24 20:37 Dose: 10 mg Magnesium Hydroxide (Milk Of Magnesia 30 Ml Oral.Susp) 30 ml PO DAILY PRN PRN Reason: Constipation Naproxen (Naproxen 250 Mg Tablet) 250 mg PO BID PRN PRN Reason: Pain, Mild (Pain Scale 1-3) Nicotine (Nicotine 21 Mg Patch.Td24) 21 mg TRANSDERMA DAILY [facility] Last Admin: 10/15/24 08:14 Dose: 21 mg Nicotine Polacrilex (Nicotine Polacrilex 2 Mg Gum) 4 mg BUCCAL Q2H PRN PRN Reason: Nicotine Cravings Last Admin: 10/15/24 14:10 Dose: 4 mg Olanzapine (Olanzapine 5 Mg Tablet) 5 mg PO Q4H PRN PRN Reason: agitation Last Admin: 10/14/24 16:57 Dose: 5 mg Prazosin HCl (Prazosin Hcl 1 Mg Capsule) 1 mg PO BEDTIME CHEMA; Protocol Last Admin: 10/14/24 20:34 Dose: 1 mg Trazodone HCl (Trazodone Hcl 50 Mg Tablet) 50 mg PO BEDTIME MRX1 PRN PRN Reason: Insomnia Home Medications ?Medication ?Instructions ?Recorded ?Confirmed ?Last Taken ?Type albuterol sulfate 90 mcg/actuation 2 puff inhalation Q4-6H PRN 10/13/24 10/13/24 Unknown History aerosol inhaler wheezing cetirizine 10 mg tablet (Zyrtec) 10 mg PO DAILY PRN Allergy Symptoms 10/13/24 10/13/24 10/13/24 History lamotrigine 100 mg tablet 100 mg PO DAILY 10/13/24 10/13/24 10/13/24 History naproxen 250 mg tablet 250 mg PO BID PRN Pain 10/13/24 10/13/24 Unknown History trazodone 100 mg tablet 50 - 100 mg PO BEDTIME PRN insomnia 10/14/24 10/14/24 Unknown History Physical Exam Vital Signs and Narrative: Vital Signs: Last Vital Signs Temp 97.4 F 10/15/24 08:00 Pulse 90 10/15/24 08:00 Resp 16 10/15/24 08:00 BP 120/78 10/15/24 08:00 Pulse Ox 97 10/15/24 08:00 O2 Del Method Room Air 10/15/24 08:00 BMI result Body Mass Index 31.2 CONST: Alert and oriented, in NAD. Well nourished HEENT: Normocephalic, atraumatic, MMM, Eyes clear, Neck supple. Bilateral tympanic membranes pearly and butts, small amount of dried flakes of cerumen in bilateral ear canals, not obscuring his tympanic membranes RESP: Lungs clear, RRR even and regular HEART:,RRR, S1, S2. No murmur, no edema GI:Abdomen Soft NT, ND. + BS times four :Deferred SKIN: Warm dry and intact, no visible lesions or rashes NEURO:Sensation intact. Speech clear PSYCH: Normal affect Results Labs 10/13/24 12:46 10/15/24 07:43 Labs: Laboratory Results - last 24 hr 10/15/24 07:43 Anion Gap 12 Estim Creat Clear Calc 123.8 Estimated GFR > 60 Random Glucose 136 H Estimat Average Glucose 111 Hemoglobin A1c % 5.5 Calcium 9.6 Total Bilirubin 0.3 AST 26 ALT 34 Alkaline Phosphatase 52 Total Protein 7.1 Albumin 4.6 Triglycerides 161 H Cholesterol 187 LDL Cholesterol, Calc 124 H HDL Cholesterol 31 L Assessment and Plan (1) Tinnitus: Qualifiers: Laterality: bilateral Qualified Code(s): H93.13 - Tinnitus, bilateral Status: Acute Plan Seasonal allergies/tinnitus Patient has exposure to loud noises at work Recommend follow up with chairman & chief executive officer as an outpatient Continue Claritin, start Flonase to see if it improves his symptoms. Thank you for allowing me to participate in the care of this patient. Signing off at this time. Please reconsult of any acute concerns or issues arise
[2024-10-15] MEDS: Fluticasone Propionate Nasal 16 GM SPRAY 1 SPRAY NOSTRIL-B (18:27)
[2024-10-15] MEDS: OLANZapine 5 MG TABLET PO (19:42)
[2024-10-15 20:50] VITALS: BP 140/89; PULSE 91; RESP 16; TEMP 36.4; O2SAT 98
[2024-10-15] MEDS: lamoTRIgine 25 MG TABLET 125 MG PO (20:51)
[2024-10-15] MEDS: Prazosin HCL 1 MG CAPSULE PO (20:52)
[2024-10-15] MEDS: traZODone HCL 50 MG TABLET PO (20:52)
[2024-10-15] MEDS: guanFACINE HCl ER 1 MG TAB.ER.24H PO (20:53)
[2024-10-16 07:00] VITALS: BMI 31.7
[2024-10-16 07:15] VITALS: BP 137/87; PULSE 94; RESP 16; TEMP 35.8; O2SAT 94
[2024-10-16] MEDS: Nicotine 21 MG PATCH.TD24 TRANSDERMA (08:07)
[2024-10-16] MEDS: Fluticasone Propionate Nasal 16 GM SPRAY 1 SPRAY NOSTRIL-B (08:08)
[2024-10-16] MEDS: Nicotine Polacrilex 2 MG GUM 4 MG BUCCAL ×4 (09:01→20:38)
--- NOTE | 2024-10-16 09:58 | P.PNPSI_ITS ---
Subjective Subjective Date of Service: 10/16/24 Reason For Visit: Crisis Subjective Notes: Conditional Voluntary Interim History: Active on unit, social with peers. attending groups. Patient reports feeling good today; pt reports he is looking forward to discharging home tomorrow. denies SI/HI/VH/AH. pt reports he plans on following up with his outpatient providers. Continue current tx plan. Medication Compliance: Yes Side effects from medications: No Attending Groups: Yes Mental Status Exam Mental Status Exam Narrative: Pt is alert and oriented; behavior is cooperative and calm; dressed in casual attire; mood is described as good ; eye contact appropriate; Speech is normal rate, volume and not pressured; thought process is organized; Thought content is on discharge; denies SI/HI/VH/AH. Diagnostics Vital Signs (24Hr): Vital Signs - 24 hr 10/15/24 20:50 10/16/24 07:15 Temperature 97.6 F 96.5 F L Pulse Rate 91 94 Respiratory Rate 16 16 Blood Pressure 140/89 H 137/87 Pulse Oximetry 98 94 Oxygen Delivery Method Room Air Room Air BMI result Body Mass Index 31.2 Labs 10/13/24 12:46 10/15/24 07:43 Labs: Laboratory Results - last 48 hr 10/15/24 07:43 Sodium 139 Potassium 3.9 Chloride 107 Carbon Dioxide 24 Anion Gap 12 BUN 13 Creatinine 1.05 Estim Creat Clear Calc 123.8 Estimated GFR > 60 Random Glucose 136 H Estimat Average Glucose 111 Hemoglobin A1c % 5.5 Calcium 9.6 Total Bilirubin 0.3 AST 26 ALT 34 Alkaline Phosphatase 52 Total Protein 7.1 Albumin 4.6 Triglycerides 161 H Cholesterol 187 LDL Cholesterol, Calc 124 H HDL Cholesterol 31 L Medications Medications Current Medications Acetaminophen (Acetaminophen 325 Mg Tablet) 650 mg PO Q6H PRN PRN Reason: Headache/Pain, Scale 1-10 Al Hydroxide/Mg Hydroxide (Magnesium Hydrox/Alum Hydrox 30 Ml Oral.Susp) 30 ml PO Q6H PRN PRN Reason: Heartburn/Nausea Albuterol Sulfate (Albuterol Sulfate 90 Mcg 8 Gm Inhaler) 2 puff INHALE Q4H PRN PRN Reason: wheezing Fluticasone Propionate (Fluticasone Propionate Nasal 16 Gm [place]) 1 spray NOSTRIL-B DAILY CHEMA Last Admin: 10/16/24 08:08 Dose: 1 spray Guanfacine HCl (Guanfacine Hcl Er 1 Mg Tab.Er.24h) 1 mg PO BEDTIME CHEMA Last Admin: 10/15/24 20:53 Dose: 1 mg Hydroxyzine HCl (Hydroxyzine Hcl 25 Mg Tablet) 25 mg PO Q6H PRN PRN Reason: mild anxiety Lamotrigine (Lamotrigine 25 Mg Tablet) 125 mg PO BEDTIME CHEMA Last Admin: 10/15/24 20:51 Dose: 125 mg Loratadine (Loratadine 10 Mg Tablet) 10 mg PO DAILY PRN PRN Reason: Allergy Symptoms Last Admin: 10/14/24 20:37 Dose: 10 mg Magnesium Hydroxide (Milk Of Magnesia 30 Ml Oral.Susp) 30 ml PO DAILY PRN PRN Reason: Constipation Naproxen (Naproxen 250 Mg Tablet) 250 mg PO BID PRN PRN Reason: Pain, Mild (Pain Scale 1-3) Nicotine (Nicotine 21 Mg Patch.Td24) 21 mg TRANSDERMA DAILY CHEMA Last Admin: 10/16/24 08:07 Dose: 21 mg Nicotine Polacrilex (Nicotine Polacrilex 2 Mg Gum) 4 mg BUCCAL Q2H PRN PRN Reason: Nicotine Cravings Last Admin: 10/16/24 09:01 Dose: 4 mg Olanzapine (Olanzapine 5 Mg Tablet) 5 mg PO Q4H PRN PRN Reason: agitation Last Admin: 10/15/24 19:42 Dose: 5 mg Prazosin HCl (Prazosin Hcl 1 Mg Capsule) 1 mg PO BEDTIME CHEMA; Protocol Last Admin: 10/15/24 20:52 Dose: 1 mg Trazodone HCl (Trazodone Hcl 50 Mg Tablet) 50 mg PO BEDTIME MRX1 PRN PRN Reason: Insomnia Last Admin: 10/15/24 20:52 Dose: 50 mg Allergies Allergies Allergy/AdvReac Type Severity Reaction Status Date / Time aripiprazole Allergy Depression Verified 10/13/24 12:30 sertraline (From Zoloft) Allergy Depression Verified 10/13/24 12:30 Assessment & Plan Assessment & Plan (1) Bipolar disorder: Qualifiers: Active/Remission status: currently active Current bipolar episode type: mixed Current episode severity: moderate Qualified Code(s): F31.62 - Bipolar disorder, current episode mixed, moderate Status: Acute Code(s): F31.9 - Bipolar disorder, unspecified (2) PTSD (post-traumatic stress disorder): Status: Acute Code(s): F43.10 - Post-traumatic stress disorder, unspecified Plan Plan: CV 15 minute safety checks Continue home medications Increase lamictal to 125mg PO bedtime Start: Prazosin 1mg PO bedtime Guanfacine 1mg PO bedtime obtain collateral encourage groups discharge planning 10/15: Active on unit, social with peers. attending groups. Patient reports feeling a lot better ; pt stated, I was able to sleep and not have any nightmares . denies side effects from medications. denies SI/HI/VH/AH. Pt is requesting to discharge on Sunday to be able to return to work. Plan to discharge if continues to improve. Continue current tx plan. 10/16: Active on unit, social with peers. attending groups. Patient reports feeling good today; pt reports he is looking forward to discharging home tomorrow. denies SI/HI/VH/AH. pt reports he plans on following up with his outpatient providers. Continue current tx plan. Patient educated on: diagnosis, medication risk/benefits and therapeutic strategies Reason for continued inpatient stay Substantial Risk for: stable for discharge Time Spent With Patient Time: Total time managing care of this patient today _20___ minutes.
[2024-10-16 20:00] VITALS: BP 140/78; PULSE 68; RESP 16; TEMP 36.6; O2SAT 99
[2024-10-16] MEDS: OLANZapine 5 MG TABLET PO (20:36)
[2024-10-16] MEDS: guanFACINE HCl ER 1 MG TAB.ER.24H PO (20:36)
[2024-10-16 20:37] VITALS: BP 140/78
[2024-10-16] MEDS: Prazosin HCL 1 MG CAPSULE PO (20:37)
[2024-10-16] MEDS: lamoTRIgine 25 MG TABLET 125 MG PO (20:37)
[2024-10-16] MEDS: traZODone HCL 50 MG TABLET PO ×2 (22:04→23:04)
--- NOTE | 2024-10-17 02:28 | P.CONHOSP_ITS ---
History of Present Illness Data of Consult Service Date: 10/17/24 Requesting physician: Latha Hanley Primary Care Provider: Unknown Physician HPI Reason for consult: testicular pain Patient is a 24-year-old male with a past medical history significant for PTSD, and mood disorder, on M3 adult Psychiatry, consult placed for testicular pain. The patient reports since being 13 years old he has had testicular pain which occurs when he is outside in the heat. He has seen a urologist for this with a negative workup. He denies any history of STIs. He states occasionally he will have clear penile discharge. 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 He feels that the pain is on the upper portion above the testicle. He denies any urinary symptoms including urgency, frequency or dysuria. No palpable mass. Sometimes the pain will radiate to his right lower quadrant. He has been seen at [facility] for this multiple times but it suicide and negative workup. Currently he is not having any pain and states that he had pain just for a few minutes the other day when they went outside during fresh air time and it was warm outside. Review of Systems 2 Constitutional: Constitutional: Denies chills, Denies fatigue, Denies fever(s) and Denies headache(s) ENT: Denies headache(s) Gastrointestinal: Gastrointestinal: Denies abdominal pain, Denies diarrhea, Denies nausea and Denies vomiting Integumentary/Breasts: Skin/Breast: Denies rash Neurologic: Denies headache(s) Endocrine: Endocrine: Denies fatigue and Denies flushing Hematologic/Lymphatic: Hematologic/Lymphatic: Denies easy bleeding and Denies easy bruising PMFSH Medical History Bipolar 1 disorder Functional capacity: independent ambulation Social History Household Members: Significant Other Housing: Apartment Do you presently have visiting nurse or other home services: No Alcohol intake: current Alcohol intake frequency: does not drink Patient Tobacco Use Status: Current everyday Tobacco user Tobacco use type: Cigarette Cigarette Packs Per Day: 2 Cigarettes Per Day: 40.0 Smoked in Last 30 Days: Yes Patient Interested in Nicotine Replacement: Yes Patient Given Instructions on How to Stop Smoking: No Second Hand Smoke Exposure: Yes Use of substances other than those prescribed or required for medical reasons: No Substance Use Type: Marijuana Currently Displaying Signs/Symptoms of Drug Intoxication Withdrawal: No Have you been hit, kicked, punched, or otherwise hurt by someone within the past year? If so, by whom?: No Do you feel safe in your current relationship?: Yes Is there a partner from a previous relationship who is making you feel unsafe now?: Yes Are you made to feel afraid or neglected: No Advance Directives: No Advance Directives Information Provided: Yes Do you have thoughts of harming others: None Do you have a plan to hurt others: No Plan Recently lost weight without trying: Yes How much weight loss: 24-33 pounds Eating poorly because of decreased appetite: No Nutrition screen score: 5 Poor oral hygiene: Yes service: No Sexual orientation: Straight/Heterosexual Meds Allergies Allergy/AdvReac Type Severity Reaction Status Date / Time aripiprazole Allergy Depression Verified 10/13/24 12:30 sertraline (From Zoloft) Allergy Depression Verified 10/13/24 12:30 Active Medications: Current Medications Acetaminophen (Acetaminophen 325 Mg Tablet) 650 mg PO Q6H PRN PRN Reason: Headache/Pain, Scale 1-10 Al Hydroxide/Mg Hydroxide (Magnesium Hydrox/Alum Hydrox 30 Ml Oral.Susp) 30 ml PO Q6H PRN PRN Reason: Heartburn/Nausea Albuterol Sulfate (Albuterol Sulfate 90 Mcg 8 Gm Inhaler) 2 puff INHALE Q4H PRN PRN Reason: wheezing Fluticasone Propionate (Fluticasone Propionate Nasal 16 Gm [place]) 1 spray NOSTRIL-B DAILY CHEMA Last Admin: 10/16/24 08:08 Dose: 1 spray Guanfacine HCl (Guanfacine Hcl Er 1 Mg Tab.Er.24h) 1 mg PO BEDTIME CHEMA Last Admin: 10/16/24 20:36 Dose: 1 mg Hydroxyzine HCl (Hydroxyzine Hcl 25 Mg Tablet) 25 mg PO Q6H PRN PRN Reason: mild anxiety Lamotrigine (Lamotrigine 25 Mg Tablet) 125 mg PO BEDTIME CHEMA Last Admin: 10/16/24 20:37 Dose: 125 mg Loratadine (Loratadine 10 Mg Tablet) 10 mg PO DAILY PRN PRN Reason: Allergy Symptoms Last Admin: 10/14/24 20:37 Dose: 10 mg Magnesium Hydroxide (Milk Of Magnesia 30 Ml Oral.Susp) 30 ml PO DAILY PRN PRN Reason: Constipation Naproxen (Naproxen 250 Mg Tablet) 250 mg PO BID PRN PRN Reason: Pain, Mild (Pain Scale 1-3) Nicotine (Nicotine 21 Mg Patch.Td24) 21 mg TRANSDERMA DAILY CHEMA Last Admin: 10/16/24 08:07 Dose: 21 mg Nicotine Polacrilex (Nicotine Polacrilex 2 Mg Gum) 4 mg BUCCAL Q2H PRN PRN Reason: Nicotine Cravings Last Admin: 10/16/24 20:38 Dose: 4 mg Olanzapine (Olanzapine 5 Mg Tablet) 5 mg PO Q4H PRN PRN Reason: agitation Last Admin: 10/16/24 20:36 Dose: 5 mg Prazosin HCl (Prazosin Hcl 1 Mg Capsule) 1 mg PO BEDTIME CHEMA; Protocol Last Admin: 10/16/24 20:37 Dose: 1 mg Trazodone HCl (Trazodone Hcl 50 Mg Tablet) 50 mg PO BEDTIME MRX1 PRN PRN Reason: Insomnia Last Admin: 10/16/24 23:04 Dose: 50 mg Home Medications ?Medication ?Instructions ?Recorded ?Confirmed ?Last Taken ?Type cetirizine 10 mg tablet (Zyrtec) 10 mg PO DAILY PRN Al lergy Symptoms 10/13/24 10/13/24 10/13/24 History Physical Exam 2 Vital Signs and Narrative: Vital Signs: Last Vital Signs Temp 97.9 F 10/16/24 20:00 Pulse 68 10/16/24 20:00 Resp 16 10/16/24 20:00 BP 140/78 H 10/16/24 20:37 Pulse Ox 99 10/16/24 20:00 O2 Del Method Room Air 10/16/24 20:00 BMI result Body Mass Index 31.7 General: AOx3, no acute distress. exam performed with Maria Antonia Chavez RN present in room. : R testicle lower than left. no obvious masses or vaircocele. no pain with palpation. Skin: Warm, dry Psych: Appropriate affect Results Labs 10/13/24 12:46 10/15/24 07:43 Assessment and Plan (1) Testicular pain, right: Status: Acute Plan Patient is a 24-year-old male with a past medical history significant for PTSD, and mood disorder, on M3 adult Psychiatry, consult placed for testicular pain. R testicular pain -- chronic, negative w/u outpt multiple times per pt - pain worse in the heat - no obvious mass or varicocle - UA, STI testing - recommend testicular US outpt and f/u outpt with urologist - wear supportive underwear - tylenol/ibuprofen PRN - ensure adequate hydration in the heat Thank you for allowing me to participate in the pt's care. Signing off. Please contact the medical team if any questions or concerns.
[2024-10-17] MEDS: OLANZapine 5 MG TABLET PO (05:05)
--- NOTE | 2024-10-17 05:08 | PC.NURSE ---
OOB at this time endorsing vivid nightmares. presents as anxious with deep sighs.
[2024-10-17] MEDS: hydrOXYzine HCL 25 MG TABLET PO (05:24)
[2024-10-17 06:02] LABS: Appearance Urine Clear; Color Urine Yellow; Glucose Urine UA Negative (Negative); Leukocyte Esterase Urine Negative (Negative); Nitrite Urine Negative (Negative); PH 5.5 (5.0-9.0); Specific Gravity - Urine >= 1.030 (1.005-1.025); Urine Blood Negative (Negative); Urine Ketones Trace mg/dL (Negative); Urine Protein Negative (Neg-Trace)
[2024-10-17 08:00] VITALS: BP 128/65; PULSE 81; RESP 14; TEMP 36.6; O2SAT 97
[2024-10-17] MEDS: Nicotine 21 MG PATCH.TD24 TRANSDERMA (08:16)
[2024-10-17] MEDS: Fluticasone Propionate Nasal 16 GM SPRAY 1 SPRAY NOSTRIL-B (08:17)
--- NOTE | 2024-10-17 08:54 | PM.PSYDC ---
DS: Providers Provider Date of Service: 10/17/24 Date of admission: 10/14/24 10:38 Date of discharge: 10/17/24 Primary care physician: Unknown Physician Admitting clinician: Latha Hanley Attending physician on admission: Myles Us Consults: 10/15/24 15:04 Consult to Hospitalist Routine Comment: Consulting Provider: [facility] Reason For Exam: ringing in ear 10/16/24 16:52 Consult to Hospitalist Routine Comment: Consulting Provider: [facility] Reason For Exam: testicular pain Attending physician on discharge: Myles Us Discharging clinician: Latha Hanley DS: Diagnosis Discharge Diagnosis (1) Testicular pain, right: Status: Acute DS: Medications Discharge Medications Home Medications: Home Medications ?Medication ?Instructions ?Recorded ?Confirmed cetirizine 10 mg tablet (Zyrtec) 10 mg PO DAILY PRN Allergy Symptoms 10/13/24 10/13/24 Previous Rx's ?Medication ?Instructions ?Recorded albuterol sulfate 90 mcg/actuation 2 puff inhalation Q6H PRN wheezing 10/16/24 aerosol inhaler 30 days #8.5 grams fluticasone propionate 50 1 spray intranasal DAILY 30 days 10/16/24 mcg/actuation nasal #16 grams spray,suspension guanfacine 1 mg tablet,extended 1 mg PO BEDTIME 30 days #30 tabs 10/16/24 release 24 hr lamotrigine 100 mg tablet 100 mg PO DAILY 30 days #30 tabs 10/16/24 lamotrigine 25 mg tablet (Lamictal) 25 mg PO DAILY 30 days #30 tabs 10/16/24 olanzapine 5 mg tablet 5 mg PO BID PRN agitation 30 days 10/16/24 #60 tabs prazosin 1 mg capsule 1 mg PO BEDTIME 30 days #30 caps 10/16/24 trazodone 50 mg tablet 50 mg PO BEDTIME PRN Insomnia 30 10/16/24 days #30 tabs Mental Status Exam Mental Status Exam Narrative: Pt is alert and oriented; behavior is cooperative and calm; dressed in casual attire; mood is described as good ; eye contact appropriate; Speech is normal rate, volume and not pressured; thought process is organized; Thought content is on discharge; denies SI/HI/VH/AH. Data Data Completed and Pending Completed studies during hospitalization [Text1]: 10/13/24 10/13/24 10/13/24 12:46 15:17 19:31 WBC 7.9 RBC 5.19 Hgb 14.9 Hct 41.7 L MCV 80.3 MCH 28.7 MCHC 35.7 RDW 12.3 Plt Count 307 MPV 10.3 Immature Gran % (Auto) 0.3 Neut % (Auto) 58.7 Lymph % (Auto) 32.2 [place] % (Auto) 7.8 Eos % (Auto) 0.4 Baso % (Auto) 0.6 Lymph # (Auto) 2.6 [place] # (Auto) 0.6 Eos # (Auto) 0.0 Baso # (Auto) 0.1 Abs Immat Gran (auto) 0.02 Absolute Neuts (auto) 4.6 Absolute Nucleated RBC 0.000 Nucleated RBC % (auto) 0.0 Sodium 140 Potassium 3.6 Chloride 109 H Carbon Dioxide 23 Anion Gap 12 BUN 11 Creatinine 1.00 Estim Creat Clear Calc 130.7 Estimated GFR > 60 Random Glucose 124 H Estimat Average Glucose Hemoglobin A1c % Calcium 9.5 Total Bilirubin 0.5 AST 28 ALT 31 Alkaline Phosphatase 51 Total Protein 7.6 Albumin 4.9 Triglycerides Cholesterol LDL Cholesterol, Calc HDL Cholesterol Urine Color Yellow Urine Appearance Turbid Urine pH 8.0 Ur Specific [place] >= 1.030 H Urine Protein Trace Urine Glucose (UA) Negative Urine Ketones Trace Urine Blood Negative Urine Nitrite Negative Ur Leukocyte Esterase Negative Salicylates < 5.0 L Urine Opiates Screen Not Detected Ur Buprenorphine Scrn Not Detected Ur Oxycodone Screen Not Detected Urine Methadone Screen Not Detected Urine Fentanyl Screen Not Detected Acetaminophen < 3 Ur Barbiturates Screen Not Detected Ur Phencyclidine Scrn Not Detected Ur Amphetamines Screen Not Detected U Benzodiazepines Scrn Not Detected Urine Cocaine Screen Not Detected U Marijuana (THC) Screen POSITIVE H Ethyl Alcohol < 10 Chlam trachomat DNA PCR COVID-19 (MICAELA) Negative COVID-19 Clin Com See Note N.gonorrhoeae DNA (PCR) S. pyogenes GrpA TOMAS Negative T. vaginalis Amp RNA 10/15/24 10/17/24 10/17/24 07:43 02:30 05:50 WBC RBC Hgb Hct MCV MCH MCHC RDW Plt Count MPV Immature Gran % (Auto) Neut % (Auto) Lymph % (Auto) [place] % (Auto) Eos % (Auto) Baso % (Auto) Lymph # (Auto) [place] # (Auto) Eos # (Auto) Baso # (Auto) Abs Immat Gran (auto) Absolute Neuts (auto) Absolute Nucleated RBC Nucleated RBC % (auto) Sodium 139 Potassium 3.9 Chloride 107 Carbon Dioxide 24 Anion Gap 12 BUN 13 Creatinine 1.05 Estim Creat Clear Calc 123.8 Estimated GFR > 60 Random Glucose 136 H Estimat Average Glucose 111 Hemoglobin A1c % 5.5 Calcium 9.6 Total Bilirubin 0.3 AST 26 ALT 34 Alkaline Phosphatase 52 Total Protein 7.1 Albumin 4.6 Triglycerides 161 H Cholesterol 187 LDL Cholesterol, Calc 124 H HDL Cholesterol 31 L Urine Color Yellow Urine Appearance Clear Urine pH 5.5 Ur Specific [place] >= 1.030 H Urine Protein Negative Urine Glucose (UA) Negative Urine Ketones Trace Urine Blood Negative Urine Nitrite Negative Ur Leukocyte Esterase Negative Salicylates Urine Opiates Screen Ur Buprenorphine Scrn Ur Oxycodone Screen Urine Methadone Screen Urine Fentanyl Screen Acetaminophen Ur Barbiturates Screen Ur Phencyclidine Scrn Ur Amphetamines Screen U Benzodiazepines Scrn Urine Cocaine Screen U Marijuana (THC) Screen Ethyl Alcohol Chlam trachomat DNA PCR Pending COVID-19 (MICAELA) COVID-19 Clin Com N.gonorrhoeae DNA (PCR) Pending S. pyogenes GrpA TOMAS T. vaginalis Amp RNA Pending DS: Summary Hospital Course Hospital Course: Patient is a 24-year-old male with history of bipolar disorder and PTSD who self presented to ER due to suicidal ideation secondary to feeling manic, angry and paranoid . Per crisis report, patient self presented to ER on the recommendation of his outpatient therapist. Patient reports feeling manic, angry and paranoid. He endorsed SI with no plan or intent. Denies HI/VH/AH. Patient reports having a diagnosis of bipolar disorder. He reports feeling a distressed for people and that everyone has ulterior motives. Patient reports that he has been trying to cut back on nicotine, cannabis and coffee. Denies any history of crisis assessments, inpatient psychiatric admissions. Pt reports superfically cutting in 7th grade and a suicide attempt in 4th or 5th grade where he tried to wrap a seat belt around his neck but did not receive medical attention. Patient reporting multiple life stressors such as being kicked out of his apartment, recently got a dog but had to be youth denies due to biting someone, his girlfriend having a miscarriage and does not feel his medications are effective. Patient has outpatient psychiatric providers via telehealth. U tox positive for cannabis. Patient reports being medication compliant. During admission assessment, patient presents alert and oriented x3. Calm and cooperative. Patient reports feeling anxious and depressed ; he reports feeling overwhelmed by his thoughts. patient stated, I woke up and my thoughts were racing. My mood goes from highs to lows. I get overwhelmed and replay conversations in my head. I thought I was training the new jaxson at work to replace me . Patient reports difficulty sleeping at night due to nightmares. Discussed starting on prazosin; risks/benefits reviewed; patient agreed to trial. denies SI/HI/VH/AH. Plan: CV 15 minute safety checks Continue home medications Increase lamictal to 125mg PO bedtime Start: Prazosin 1mg PO bedtime Guanfacine 1mg PO bedtime obtain collateral encourage groups discharge planning Active on unit, social with peers. attending groups. Patient reports feeling a lot better ; pt stated, I was able to sleep and not have any nightmares . denies side effects from medications. denies SI/HI/VH/AH. Pt is requesting to discharge on Sunday to be able to return to work. Plan to discharge if continues to improve. Continue current tx plan. Active on unit, social with peers. attending groups. Patient reports feeling good today; pt reports he is looking forward to discharging home tomorrow. denies SI/HI/VH/AH. pt reports he plans on following up with his outpatient providers. Status at Discharge Cognitive/behavioral status at discharge: Patient has insight and demonstrates good judgment in terms of wanting to pursue treatment. Patient has a safety plan that includes presenting to the closest ER or calling 911 if feeling unsafe. Functional status at discharge: independent ambulation Overall status at discharge: patient is back to baseline Time Spent with Patient Time attestation: Total time managing care of this patient today __20__ minutes. Time spent: Less than 30 minutes Discharge Plan Discharge Anticipated Discharge Date/Time: 10/17/24 10:00 Patient Disposition: Home, Self-Care Discharge Diagnosis: Bipolar d/o, PTSD Referrals: Jacquelyn Corado (psychiatrist) [Other] - 10/27/24 12:15 pm Referral Note: telehealth appointment [facility] [Provider Group] - 1 Week Referral Note: 6-18-25 [facility] was added to patients chart. Please call [phone] to schedule a follow up appt within 7-10 days of discharge. No release or PCP on file. Discharge Medications: New guanfacine 1 mg Tablet Extended Release 24 Hr 1 mg PO BEDTIME 30 Days Qty: 30 0RF prazosin 1 mg Capsule 1 mg PO BEDTIME 30 Days Qty: 30 0RF Protocol: Hold for SBP< HOLD for SBP < : 90 fluticasone propionate 50 mcg/actuation [place],Suspension 1 spray intranasal DAILY 30 Days Qty: 16 0RF trazodone 50 mg Tablet 50 mg PO BEDTIME PRN (Reason: Insomnia) 30 Days Qty: 30 0RF olanzapine 5 mg Tablet 5 mg PO BID PRN (Reason: agitation) 30 Days Qty: 60 0RF lamotrigine [Lamictal] 25 mg tablet 25 mg PO DAILY 30 Days Qty: 30 0RF Rx Instructions: Take with 100mg tablet to total 125mg daily. Continued cetirizine [Zyrtec] 10 mg Tablet 10 mg PO DAILY PRN (Reason: Allergy Symptoms) lamotrigine 100 mg Tablet 100 mg PO DAILY 30 Days Qty: 30 0RF Rx Instructions: Take with 25mg tablet to total 125mg daily. Changed albuterol sulfate 90 mcg/actuation HFA aerosol inhaler 2 puff INHALATION Q6H PRN (Reason: wheezing) 30 Days Qty: 8.5 0RF Discontinued naproxen 250 mg Tablet 250 mg PO BID PRN (Reason: Pain) trazodone 100 mg tablet 50 - 100 mg PO BEDTIME PRN (Reason: insomnia) Discharge Orders: Discharge Order (Routine); Ordered 10/17/24 Ordered By: Latha Hanley Diet: Regular diet Activity on Discharge: As tolerated Stand Alone Forms: Patient Portal Discharge page, Community Support Print Language: Azeri Care Plan Goals: Maintain mood and safe behaviors Take medications as prescribed Practice coping skills Continue with outpatient providers and reach out to them as needed Health Concerns: Mood stability and behaviors Plan of Treatment: Follow up with your PCP, psychiatric provider and other outpatient providers regarding above concerns Take medications as prescribed Assessment: Patient has insight and demonstrates good judgment in terms of wanting to pursue treatment. Patient has a safety plan that includes presenting to the closest ER or calling 911 if feeling unsafe. Discharge Date/Time: 10/17/24 10:10
[2024-10-17] MEDS: Nicotine Polacrilex 2 MG GUM 4 MG BUCCAL (09:31)
[2024-10-17 10:13] LABS: CT PCR NOT DETECTED (Not Detect.); NG PCR NOT DETECTED (Not Detect.)
[2024-10-19 10:13] LABS: Trichomonas vag. RNA Ur Male NOT DETECTED (NOT DETECTED)
== END 2024-10-17 10:10 | disposition home or self-care (01) | DRG 753 ==
LOC: HO.ED 21:11 → HO.PADLT16 10-14 11:00
PROVIDERS: Physician Assistant; Physician Assistant Medical; Admitting Provider Registered Nurse; Emergency Provider Emergency Medicine Emergency Medical Services; Responsible Provider Registered Nurse; Visit Provider Psychiatry & Neurology Psychiatry
DX: F31.62 Bipolar disorder, current episode mixed, moderate (principal); R45.851 Suicidal ideations; F17.210 Nicotine dependence, cigarettes, uncomplicated; Z71.6 Tobacco abuse counseling; N50.811 Right testicular pain; G89.29 Other chronic pain; F43.10 Post-traumatic stress disorder, unspecified; H93.13 Tinnitus, bilateral; Z20.822 Contact with and (suspected) exposure to COVID-19; Z79.51 Long term (current) use of inhaled steroids; Z79.899 Other long term (current) drug therapy
CPT/HCPCS: 36415; 80053; 80061; 80143; 80179; 80307; 81003; 83036; 85025; 87491; 87591; 87635; 87651; 87661; 93005; 99285; S9485

== ENCOUNTER → 2024-10-13 12:32 | Outpatient (BNV) | payer BC, SELFPAY | PROVIDERS: Emergency Provider Emergency Medicine Emergency Medical Services; Visit Provider Internal Medicine Cardiovascular Disease | DX: Z13.6 Encounter for screening for cardiovascular disorders (principal) | CPT/HCPCS: 93010 ==

== ENCOUNTER → 2024-10-14 10:38 | Outpatient (BNV) | payer BC, SELFPAY | PROVIDERS: Admitting Provider Registered Nurse; Emergency Provider Emergency Medicine Emergency Medical Services; Responsible Provider Registered Nurse; Visit Provider Nurse Practitioner Family | DX: H93.13 Tinnitus, bilateral (principal) | CPT/HCPCS: 99231; 99232 ==

== ENCOUNTER → 2024-10-14 10:38 | Outpatient (BNV) | payer BC, SELFPAY | PROVIDERS: Admitting Provider Registered Nurse; Emergency Provider Emergency Medicine Emergency Medical Services; Responsible Provider Registered Nurse; Visit Provider Registered Nurse | DX: F31.62 Bipolar disorder, current episode mixed, moderate (principal); F43.11 Post-traumatic stress disorder, acute; N50.811 Right testicular pain | CPT/HCPCS: 90792; 99231; 99238 ==

== ENCOUNTER 2024-10-22 11:17 | Outpatient (AMB) | payer BC, SELFPAY ==
--- NOTE | 2024-10-22 11:08 | MHC.PC.OV ---
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: No Accompanied by: grilfriend Allergies aripiprazole Allergy (Verified 10/22/24 11:40) Depression sertraline (From Zoloft) Allergy (Verified 10/22/24 11:40) Depression Medication List - Last Reconciled 10/22/24 by Cassandra Mccoy PA-C albuterol sulfate 90 mcg/actuation 2 puffs inhalation Q6H PRN 30 days cetirizine (Zyrtec) 10 mg PO DAILY PRN fluticasone propionate 50 mcg/actuation 1 spray intranasal DAILY 30 days guanfacine ER 1 mg PO BEDTIME 30 days lamotrigine 100 mg PO DAILY 30 days lamotrigine (Lamictal) 25 mg PO DAILY 30 days olanzapine 5 mg PO BID PRN 30 days prazosin 1 mg See Protocol PO BEDTIME 30 days trazodone 50 mg PO BEDTIME PRN 30 days Tobacco use date assessed: 10/22/24 Dental Screening Dental Screen Date: 10/22/24 Did you have a dental visit in the last 12 months?: No Did you have a dental problem in the last 6 months where you did not have access to dental care?: No HPI Establish Care HPI Details The patient is a 24-year-old male presenting for establishment of primary care and management of multiple chronic conditions. The patient has a history of bipolar disorder, which has been associated with manic, angry, and paranoid episodes, as well as suicidal ideation without plan or intent. He has been under the care of a therapist, Sarah Biggs, and a nurse practitioner, Jacquelyn Gabriel, and reports improvement with current medication adjustments. The patient reports testicular pain, which he describes as a sharp pain radiating to the lower abdomen. He has not undergone an ultrasound for this issue, and there is a suspicion of cysts contributing to the pain. He has a history of tinnitus, which has been worsening, characterized by episodes of hearing loss followed by loud ringing. This may be related to chronic sinus issues, as he experiences pressure under the eyes and a sensation of fluid in the ears. The patient has asthma, which is exercise and cold-induced, and he uses albuterol as needed. He also reports chronic sinusitis, with symptoms of sinus pressure and fluid sensation in the ears. He experiences insomnia, anxiety, and depression, which are being managed with medication. He has a history of PTSD, which is being addressed with therapy. The patient has a history of hyperlipidemia and pre-diabetes, with recent lab results showing elevated triglycerides and hemoglobin A1c. He has been advised to reduce sugar intake to manage these conditions. He reports chronic back and neck pain since childhood, which has not been resolved with pediatric acute care unit nurse or physical therapy. He also experiences vertigo, particularly when changing positions, which may benefit from physical therapy. The patient has been attempting to reduce nicotine, cannabis, and caffeine use, which may have contributed to recent mood instability. Social History - Substance Use: Patient is attempting to reduce nicotine, cannabis, and caffeine use. - Housing: Patient was recently kicked out of his apartment. - Family Status: Patient's girlfriend was present during the visit. [facility] Medical History (Updated 10/22/24 @ 12:33 by Cassandra Mccoy PA-C) Class 1 obesity with body mass index (BMI) of 31.0 to 31.9 in adult Nicotine dependence Vertigo Hypertriglyceridemia Hyperlipidemia LDL goal <100 History of participation in smoking cessation counseling Pain in both testicles Chronic neck and back pain Chronic sinus complaints Asthma Insomnia Anxiety and depression Establishing care with new doctor, encounter for Bipolar 1 disorder Family History Father Type 2 diabetes mellitus Mother Plantar fasciitis, bilateral Social History Household Members: Significant Other Housing: Apartment Do you presently have visiting nurse or other home services: No Alcohol intake: current Alcohol intake frequency: does not drink Patient Tobacco Use Status: Former Tobacco user Tobacco use type: Cigarette e-Cigarette/Vaping Use: Currently Using Second Hand Smoke Exposure: Yes Substance Use Type: Marijuana service: No Current occupational status: employed Sexual orientation: Straight/Heterosexual Cognitive needs: No Hearing needs: No Vision needs: No Questionnaire PHQ-9 Over the last 2 weeks, how often have you been bothered by any of the following problems? 1. Little interest or pleasure in doing things: not at all 2. Feeling down, depressed, or hopeless: not at all 3. Trouble falling or staying asleep, or sleeping too much: more than half the days 4. Feeling tired or having little energy: not at all 5. Poor appetite or overeating: more than half the days 6. Feeling bad about yourself - or that you are a failure or have let yourself or your family down: not at all 7. Trouble concentrating on things, such as reading the newspaper or watching television: nearly every day 8. Moving or speaking so slowly that other people could have noticed. Or the opposite - being so fidgety or restless that you have been moving around a lot more than usual: nearly every day 9. Thoughts that you would be better off or of hurting yourself in some way: not at all Total score: 10 Depression Screening Interpretation: Positive Depression Screening Follow-up: Existing condition and In treatment Depression Screening Done: Yes 42351 - PHQ-9 Billing: Yes Source: Developed by Drs. Landon Tran, Waleska Muniz, Aryan Gleason and colleagues, with an educational scarlet from [employer]. Thrive Questionnaire Date Thrive assessed: 10/22/24 I am a: Patient What is your living situation today?: I have a steady place to live Within the past 12 months, did the food you bought not last and you didn't have the money to get more?: Never true Within the past 12 months, did you worry whether your food would run out before you got money to buy more?: Never true Do you have trouble paying for medicines?: No Do you have trouble getting transportation to medical appointments?: No Do you have trouble paying your heating and electricity bill?: No Do you have trouble taking care of your child, family member or friend?: No Do you have trouble with day-to-day activities such as bathing, preparing meals, shopping, managing finances, etc.?: No Are you currently unemployed and looking for a job?: No Are you interested in more education?: No Please select the resources that you would like help with: None Currently or been in a relationship where the following occur: No concerns reported THRIVE Score: 0 AUDIT C Alcohol Use Questionnaire (AUDIT-C) 1. How often do you have a drink containing alcohol?: Never 3. How often do you have six or more drinks on one occasion?: Never Total Score: 0 Score Reviewed/Action Taken: No WILD-7 AMB Questionnaire WILD-7 Date WILD - 7 assessed: 10/22/24 Feeling nervous, anxious, or on edge: 1 = Several days Not being able to stop or control worryin = Several days Worrying too much about different things: 0 = Not at all Trouble relaxin = Nearly every day Being so restless that it is hard to sit still: 3 = Nearly every day Becoming easily annoyed or irritable: 2 = More than half the days Feeling afraid as if something awful might happen: 0 = Not at all Total WILD-7 score (0-4 normal; 5-9 mild; 10-14 moderate; 15-21 severe): 10 Source: Developed by Drs. Landon Tran, Waleska Muniz, Aryan Gleason and colleagues, with an educational scarlet from [employer]. WILD-7 Assessment Billing WILD-7 Assessment Tool: WILD-7 Assessment 57987 Review of Systems Const Details: - Psychiatric: Reports manic, angry, and paranoid episodes; denies homicidal ideation, auditory and visual hallucinations. - Neurological: Reports tinnitus with episodes of hearing loss and vertigo. - Respiratory: Reports asthma exacerbated by exercise and cold. - Musculoskeletal: Reports chronic back and neck pain. - Endocrine: Reports pre-diabetes with elevated hemoglobin A1c. - Genitourinary: Reports testicular pain radiating to the lower abdomen. - ENT: Reports chronic sinusitis with sinus pressure and fluid sensation in ears. Physical exam (Primary Care) Vital Signs: Last Vital Signs Temp 99.5 F 10/22/24 11:22 Pulse 96 10/22/24 11:22 Resp 16 10/22/24 11:22 BP 122/92 H 10/22/24 11:22 Pulse Ox 99 10/22/24 11:22 Oxygen Delivery Method Room Air 10/22/24 11:22 Care Plan Goal for BP management: <140/90 at Goal BMI result Body Mass Index 31.6 BMI Assessment/Plan discussion: High BMI High, discussed plan: lifestyle, weight reduction, dietary, physical activity and alcohol moderation Tobacco/Smoking Status: Tobacco use Status Tobacco use date assessed 10/22/24 10/22/24 11:13 Patient Tobacco Use Status Current everyday Tobacco 10/22/24 11:33 Tobacco use type Cigarette 10/22/24 11:33 e-Cigarette/Vaping Use Currently Using 10/22/24 11:36 PHQ-9: PHQ-9 Score PHQ-9: Total score 10 10/22/24 11:36 Depression Screening Interpretation: Positive Depression Screening Follow-up: Existing condition and In treatment Thrive Assessment: Date of Thrive Assessment Date Thrive assessed 10/22/24 10/22/24 11:13 Currently or been in a relationship where the following occur: No concerns reported Const Other: Appearance: Alert. Oriented X3. No acute distress. Head: Normal external exam. Normocephalic. Atraumatic. Eyes: Pupils are equal, round, and reactive to light. Extraocular movements intact. Conjunctiva and sclera normal. Eyelids normal. Ears: External auditory canal normal. Tympanic membranes normal. Patient reports intermittent hearing loss and ringing in ears, possibly related to sinus issues. Throat: Pharynx normal. Uvula midline. Moist mucous membranes. Neck: Normal inspection. Neck supple. Full range of motion. No adenopathy. Thyroid Normal. No meningeal signs. No neck mass noted. Patient reports chronic neck pain. Cardiovascular: Normal heart rate and rhythm. Heart sound normal. No murmurs noted. Pulses normal throughout. Respiratory: No respiratory distress. Painless inspiration. Breath sounds normal. No wheezes/rales/rhonchi noted. Chest nontender. No accessory muscle usage noted or decreased air movement noted. Patient has a history of asthma, exercise and cold-induced. Abdomen: Soft and nontender. Bowel sounds normal in all 4 quadrants. No distention noted. No organomegaly noted. No visible injury noted. Patient reports intermittent sharp pain in lower abdomen possibly related to testicular issues. Back: No costovertebral angle tenderness. Full range of motion noted. Patient reports chronic back pain. Skin: Skin warm and dry. Normal skin color. Normal skin turgor. No rashes/lesions/lacerations noted. Extremities: No lower extremity edema. Extremities exhibit normal range of motion. Extremities nontender. Neuro: Oriented X 3. No motor deficit. No sensory deficit. Reflexes normal. Patient reports episodes of dizziness and balance issues when changing positions, possibly related to vertigo. Results Reviewed Results Reviewed: - Labs: CBC normal, chemistry normal, hemoglobin A1c 5.5, triglycerides 161, total cholesterol 187, LDL 124, HDL 31. - Urinalysis: Presence of ketones, negative for blood, negative for STIs including gonorrhea, chlamydia, and trichomonas. Coding Level of Care Code New Pt Level 5 (89804) Complex EM visit Add On G2211 Diagnoses Establishing care with new doctor, encounter for Z76.89 Bipolar disorder F31.62 Active/Remission status: currently active Current bipolar episode type: mixed Current episode severity: moderate PTSD (post-traumatic stress disorder) F43.10 Pain in both testicles N50.811; N50.812 Tinnitus of both ears H93.13 Laterality: bilateral Asthma J45.909 Chronic sinus complaints R09.89 Insomnia G47.00 Anxiety and depression F41.9; F32.A Hyperlipidemia LDL goal <100 E78.5 Hypertriglyceridemia E78.1 Chronic neck and back pain M54.2; M54.9; G89.29 Vertigo R42 Nicotine dependence F17.200 Class 1 obesity with body mass index (BMI) of 31.0 to 31.9 in adult E66.811; Z68.31 Additional Codes PHQ-9 - 05139 - PHQ-9 Billing: Yes ([id number]) WILD-7 Assessment Billing - WILD-7 Assessment Tool: WILD-7 Assessment 93133 ([id number]) Time Spent (min) 50 Assessment & Plan Assessment & Plan (1) Establishing care with new doctor, encounter for: Code(s): Z76.89 - Persons encountering health services in other specified circumstances Category: Medical (2) Bipolar disorder: Code(s): F31.9 - Bipolar disorder, unspecified Category: Medical Qualifiers: Active/Remission status: currently active Current bipolar episode type: mixed Current episode severity: moderate Qualified Code(s): F31.62 - Bipolar disorder, current episode mixed, moderate Plan: The patient will continue with current medications, including Lamictal, with an increase to 125 mg at bedtime, and follow-up with his therapist and nurse practitioner for ongoing management. Condition is chronic and stable will continue to monitor. (3) PTSD (post-traumatic stress disorder): Code(s): F43.10 - Post-traumatic stress disorder, unspecified Category: Medical Plan: The patient will continue therapy to address PTSD symptoms. Condition is chronic and stable will continue to monitor. (4) Pain in both testicles: Code(s): N50.811 - Right testicular pain; N50.812 - Left testicular pain Category: Medical Plan: A testicular ultrasound has been ordered to evaluate the cause of the pain, with suspicion of cysts as a contributing factor. Condition is chronic and stable will continue to monitor. (5) Tinnitus: Code(s): H93.19 - Tinnitus, unspecified ear Category: Medical Qualifiers: Laterality: bilateral Qualified Code(s): H93.13 - Tinnitus, bilateral Plan: The patient will be referred to an ENT specialist for further evaluation of tinnitus and associated sinus issues. Condition is chronic and stable will continue to monitor. (6) Asthma: Code(s): J45.909 - Unspecified asthma, uncomplicated Category: Medical Plan: The patient will continue using albuterol as needed for asthma exacerbations, particularly those induced by exercise and cold.Condition is chronic and stable will continue to monitor. (7) Chronic sinus complaints: Code(s): R09.89 - Other specified symptoms and signs involving the circulatory and respiratory systems Category: Medical Plan: Referral to an ENT specialist has been made for further evaluation and management of chronic sinusitis. Condition is chronic and stable will continue to monitor. (8) Insomnia: Code(s): G47.00 - Insomnia, unspecified Category: Medical Plan: The patient will continue using trazodone 50 mg for insomnia, with the option to increase to 100 mg if needed. Condition is chronic and stable will continue to monitor. (9) Anxiety and depression: Code(s): F41.9 - Anxiety disorder, unspecified; F32.A - Depression, unspecified Category: Medical Plan: The patient will continue with current medications and therapy for management of anxiety and depression. Condition is chronic and stable will continue to monitor. (10) Hyperlipidemia LDL goal <100: Code(s): E78.5 - Hyperlipidemia, unspecified Category: Medical Plan: The patient has been advised to reduce sugar intake, improved diet and exercise regimen to manage hyperlipidemia, with follow-up labs to monitor lipid levels. Condition is chronic and stable will continue to monitor. (11) Hypertriglyceridemia: Code(s): E78.1 - Pure hyperglyceridemia Category: Medical Plan: The patient has been advised to reduce sugar intake, , improved diet and exercise regimen to manage hyperlipidemia, with follow-up labs to monitor lipid levels. Condition is chronic and stable will continue to monitor. (12) Chronic neck and back pain: Code(s): M54.2 - Cervicalgia; M54.9 - Dorsalgia, unspecified; G89.29 - Other chronic pain Category: Medical Plan: Physical therapy has been recommended to address chronic back and neck pain, with a focus on neck and shoulder exercises. Condition is chronic and stable continue to monitor. (13) Vertigo: Code(s): R42 - Dizziness and giddiness Category: Medical Plan: Physical therapy has been recommended to address vertigo symptoms, particularly those associated with positional changes. Patient declined referral at this time will re-evaluate at next visits. Condition is chronic and stable continue to monitor. (14) Nicotine dependence: Code(s): F17.200 - Nicotine dependence, unspecified, uncomplicated Category: Medical Plan: The patient is attempting to reduce nicotine, cannabis, and caffeine use, with support for smoking cessation provided. Nicotine patches will be sent to the patient's pharmacy. Smoking cessation counseling provided for approximately 10 minutes. Condition is chronic and stable and patient trying to quit will continue to monitor (15) Class 1 obesity with body mass index (BMI) of 31.0 to 31.9 in adult: Code(s): E66.811 - Obesity, class 1; Z68.31 - Body mass index [BMI] 31.0-31.9, adult Category: Medical Plan: Patient to improve diet and exercise regimen. Condition is chronic and stable will continue to monitor. Plan Plan Patient was informed and verbally consented to the use of an ambient scribe for clinic note documentation during this visit. 1. Bipolar Disorder The patient will continue with current medications, including Lamictal, with an increase to 125 mg at bedtime, and follow-up with his therapist and nurse practitioner for ongoing management. 2. Testicular Pain A testicular ultrasound has been ordered to evaluate the cause of the pain, with suspicion of cysts as a contributing factor. 3. Tinnitus The patient will be referred to an ENT specialist for further evaluation of tinnitus and associated sinus issues. 4. Asthma The patient will continue using albuterol as needed for asthma exacerbations, particularly those induced by exercise and cold. 5. Chronic Sinusitis Referral to an ENT specialist has been made for further evaluation and management of chronic sinusitis. 6. Insomnia The patient will continue using trazodone 50 mg for insomnia, with the option to increase to 100 mg if needed. 7. Anxiety And Depression The patient will continue with current medications and therapy for management of anxiety and depression. 8. Ptsd The patient will continue therapy to address PTSD symptoms. 9. Hyperlipidemia The patient has been advised to reduce sugar intake to manage hyperlipidemia, with follow-up labs to monitor lipid levels. 10. Pre-Diabetes The patient has been advised to reduce sugar intake to manage pre-diabetes, with follow-up labs to monitor glucose levels. 11. Back And Neck Pain Physical therapy has been recommended to address chronic back and neck pain, with a focus on neck and shoulder exercises. 12. Vertigo Physical therapy has been recommended to address vertigo symptoms, particularly those associated with positional changes. 13. Substance Use: Nicotine, Cannabis, Caffeine The patient is attempting to reduce nicotine, cannabis, and caffeine use, with support for smoking cessation provided. During the visit, we discussed the management of bipolar disorder, including medication adjustments and the importance of follow-up with mental health providers. We also addressed the patient's testicular pain, with a plan to perform an ultrasound to investigate potential cysts. The patient was advised to continue using albuterol for asthma and to follow up with an ENT specialist for tinnitus and sinus issues. We discussed lifestyle modifications to manage hyperlipidemia and pre-diabetes, emphasizing the reduction of sugar intake. Physical therapy was recommended for back and neck pain, as well as vertigo. The patient was encouraged to reduce nicotine, cannabis, and caffeine use, with support for smoking cessation provided. Orders: Orders US scrotum Today N50.811 - Right testicular pain, N50.812 - Left testicular pain Vitamin B12 and Folate Today Z00.00 - Encounter for general adult medical examination without abnormal findings Vitamin D 25-OH Total Today Z00.00 - Encounter for general adult medical examination without abnormal findings PSA,Total (Free>4and<10) Today Z00.00 - Encounter for general adult medical examination without abnormal findings TSH reflex Free T4 Today Z00.00 - Encounter for general adult medical examination without abnormal findings Magnesium Today Z00.00 - Encounter for general adult medical examination without abnormal findings Referrals Ear/Nose/Throat Referral H93.13 - Tinnitus, bilateral, R09.89 - Other specified symptoms and signs involving the circulatory and respiratory systems Urology Referral N50.811 - Right testicular pain Medications: New nicotine 1 patch transdermal Q24H 28 ea 1RF Z71.89 - Other specified counseling cetirizine (Zyrtec) 10 mg PO DAILY PRN 90 tabs 3RF Allergy Symptoms Changed From lamotrigine Take with 25mg tablet to total 125mg daily. 100 mg PO DAILY 30 days 30 tabs 0RF To lamotrigine Take with 25mg tablet to total 125mg daily. 100 mg PO DAILY 90 tabs 1RF 90 days Refilled lamotrigine (Lamictal) Take with 100mg tablet to total 125mg daily. 25 mg PO DAILY 90 tabs 1RF 30 days Patient Instructions: - Continue current medications as prescribed, including Lamictal and trazodone. - Follow up with your therapist and nurse practitioner for ongoing mental health management. - Schedule and attend the testicular ultrasound as ordered. - Use albuterol as needed for asthma symptoms. - Follow up with an ENT specialist for tinnitus and sinus issues. - Reduce sugar intake to manage hyperlipidemia and pre-diabetes. - Engage in physical therapy for back and neck pain, and vertigo. - Reduce nicotine, cannabis, and caffeine use, and consider smoking cessation support.
[2024-10-22 11:22] VITALS: BP 122/92; PULSE 96; RESP 16; TEMP 37.5; O2SAT 99; BMI 31.6
== END 2024-10-22 12:04 | disposition home or self-care (01) ==
LOC: HO.HMCSH 11:17
PROVIDERS: Visit Provider Physician Assistant Medical
DX: N50.811 Right testicular pain (principal); Z76.89 Persons encountering health services in other specified circumstances; F31.62 Bipolar disorder, current episode mixed, moderate; F43.10 Post-traumatic stress disorder, unspecified; N50.812 Left testicular pain; H93.13 Tinnitus, bilateral; J45.909 Unspecified asthma, uncomplicated; R09.89 Other specified symptoms and signs involving the circulatory and respiratory systems; G47.00 Insomnia, unspecified; F41.9 Anxiety disorder, unspecified; F32.A Depression, unspecified; E78.5 Hyperlipidemia, unspecified

== ENCOUNTER → 2024-10-22 11:17 | Outpatient (BNVA) | payer BC, SELFPAY | PROVIDERS: Visit Provider Physician Assistant Medical | DX: R73.03 Prediabetes (principal); J45.909 Unspecified asthma, uncomplicated; F41.9 Anxiety disorder, unspecified; F43.10 Post-traumatic stress disorder, unspecified; E78.5 Hyperlipidemia, unspecified; F31.62 Bipolar disorder, current episode mixed, moderate; N50.811 Right testicular pain; N50.812 Left testicular pain; H93.13 Tinnitus, bilateral; R09.89 Other specified symptoms and signs involving the circulatory and respiratory systems; G47.00 Insomnia, unspecified; E87.1 Hypo-osmolality and hyponatremia; R42 Dizziness and giddiness; F17.210 Nicotine dependence, cigarettes, uncomplicated; E66.811 Obesity, class 1; M54.9 Dorsalgia, unspecified; M54.2 Cervicalgia; G89.29 Other chronic pain; Z68.31 Body mass index [BMI] 31.0-31.9, adult; Z76.89 Persons encountering health services in other specified circumstances | CPT/HCPCS: 96127 ==

== ENCOUNTER 2024-11-07 14:50 | Outpatient (AMB) | payer BC, SELFPAY ==
--- OUTSIDE RECORDS SUMMARY | 2024-11-07 14:52 | XMS_ITS ---
Author Name [facility] Organization Unknown Care Team Organization Name Specialty Phone Email Start Date End Da te [facility] Not Disclosed Primary Care 11/11/2023 [facility] Not Disclosed Primary Care 11/10/2023
--- NOTE | 2024-11-07 14:56 | MHC.PC.OV ---
Vital Signs 11/07/24 14:57 Height 5 ft 9.69 in Weight 224 lb BMI 32.4 BP 128/80 Pulse 116 H Pulse Source Pulse Oximeter Temp 98.7 F Temp Source Temporal Artery Scan Pulse Oximetry (%) 98 Oxygen Delivery Method Room Air Intake Visit Reasons: LT butt cheek, RT armpit cyst [place] Decorator Required: No Accompanied by: girlfriend Allergies aripiprazole Allergy (Verified 11/07/24 15:27) Depression sertraline (From Zoloft) Allergy (Verified 11/07/24 15:27) Depression Medication List - Last Reconciled 11/07/24 by Cassandra Mccoy PA-C albuterol sulfate 90 mcg/actuation 2 puffs inhalation Q6H PRN 30 days cetirizine (Zyrtec) 10 mg PO DAILY PRN fluticasone propionate 50 mcg/actuation 1 spray intranasal DAILY 30 days guanfacine ER 1 mg PO BEDTIME 30 days lamotrigine 100 mg PO DAILY 90 days lamotrigine (Lamictal) 50 mg PO DAILY nicotine 1 patch transdermal Q24H olanzapine 15 mg PO ONCE prazosin 1 mg See Protocol PO BEDTIME 30 days trazodone 50 mg PO BEDTIME PRN 30 days Tobacco use date assessed: 11/07/24 Dental Screening Dental Screen Date: 10/22/24 HPI LT butt cheek, RT armpit cyst HPI Details 24-year-old male with a past medical history of recurrent abscesses presenting to the primary care clinic with complaints of left axillary pain/redness and swelling believes he might have an abscess. Reports it started a few days ago and is now worse. Reports he has had multiple I and D's in the past for this same abscess last I and D was at [facility] a few years ago. He denies any fevers, chills, nausea vomiting, spreading redness or swollen lymph nodes. He also was concerned that he may have an abscess to his buttocks area that he has had in the past although girlfriend at bedside reports ?it looks like a wart?. [facility] Medical History (Updated 11/07/24 @ 16:53 by Cassandra Mccoy PA-C) Abscess of left axilla Cellulitis Tinnitus Cyst of buttocks Suicidal ideation Class 1 obesity with body mass index (BMI) of 31.0 to 31.9 in adult Nicotine dependence Vertigo Hypertriglyceridemia Hyperlipidemia LDL goal <100 History of participation in smoking cessation counseling Pain in both testicles Chronic neck and back pain Chronic sinus complaints Asthma Insomnia Anxiety and depression Establishing care with new doctor, encounter for Bipolar 1 disorder Family History Father Type 2 diabetes mellitus Mother Plantar fasciitis, bilateral Social History Household Members: Significant Other Housing: Apartment Do you presently have visiting nurse or other home services: No Alcohol intake: current Alcohol intake frequency: does not drink Patient Tobacco Use Status: Former Tobacco user Tobacco use type: Cigarette e-Cigarette/Vaping Use: Currently Using Second Hand Smoke Exposure: Yes Substance Use Type: Marijuana service: No Current occupational status: employed Sexual orientation: Straight/Heterosexual Cognitive needs: No Hearing needs: No Vision needs: No Questionnaire PHQ-9 Over the last 2 weeks, how often have you been bothered by any of the following problems? 1. Little interest or pleasure in doing things: not at all 2. Feeling down, depressed, or hopeless: not at all 3. Trouble falling or staying asleep, or sleeping too much: more than half the days 4. Feeling tired or having little energy: not at all 5. Poor appetite or overeating: more than half the days 6. Feeling bad about yourself - or that you are a failure or have let yourself or your family down: not at all 7. Trouble concentrating on things, such as reading the newspaper or watching television: nearly every day 8. Moving or speaking so slowly that other people could have noticed. Or the opposite - being so fidgety or restless that you have been moving around a lot more than usual: nearly every day 9. Thoughts that you would be better off or of hurting yourself in some way: not at all Total score: 10 Depression Screening Interpretation: Positive Depression Screening Follow-up: Existing condition and In treatment Depression Screening Done: Yes 06312 - PHQ-9 Billing: Yes Source: Developed by Drs. Landon Tran, Waleska Muniz, Aryan Gleason and colleagues, with an educational scarlet from [employer]. Thrive Questionnaire Date Thrive assessed: 10/22/24 I am a: Patient What is your living situation today?: I have a steady place to live Within the past 12 months, did the food you bought not last and you didn't have the money to get more?: Never true Within the past 12 months, did you worry whether your food would run out before you got money to buy more?: Never true Do you have trouble paying for medicines?: No Do you have trouble getting transportation to medical appointments?: No Do you have trouble paying your heating and electricity bill?: No Do you have trouble taking care of your child, family member or friend?: No Do you have trouble with day-to-day activities such as bathing, preparing meals, shopping, managing finances, etc.?: No Are you currently unemployed and looking for a job?: No Are you interested in more education?: No Please select the resources that you would like help with: None Currently or been in a relationship where the following occur: No concerns reported THRIVE Score: 0 AUDIT C Alcohol Use Questionnaire (AUDIT-C) 1. How often do you have a drink containing alcohol?: Never 3. How often do you have six or more drinks on one occasion?: Never Total Score: 0 Score Reviewed/Action Taken: No WILD-7 AMB Questionnaire WILD-7 Date WILD - 7 assessed: 10/22/24 Feeling nervous, anxious, or on edge: 1 = Several days Not being able to stop or control worryin = Several days Worrying too much about different things: 0 = Not at all Trouble relaxin = Nearly every day Being so restless that it is hard to sit still: 3 = Nearly every day Becoming easily annoyed or irritable: 2 = More than half the days Feeling afraid as if something awful might happen: 0 = Not at all Total WILD-7 score (0-4 normal; 5-9 mild; 10-14 moderate; 15-21 severe): 10 Source: Developed by Drs. Landon Tran, Waleska Muniz, Aryan Gleason and colleagues, with an educational scarlet from [employer]. WILD-7 Assessment Billing WILD-7 Assessment Tool: WILD-7 Assessment 34235 Review of Systems Const Details: Patient denies fevers, nausea, vomiting, spreading redness or streaking, thoughts of foreign bodies, Lymphadenopathy, current drainage or any other symptoms complaints or concerns at this time. Physical exam (Primary Care) Vital Signs: Last Vital Signs Temp 98.7 F 11/07/24 14:57 Pulse 116 H 11/07/24 14:57 BP 128/80 11/07/24 14:57 Pulse Ox 98 11/07/24 14:57 Oxygen Delivery Method Room Air 11/07/24 14:57 Care Plan Goal for BP management: <140/90 at goal BMI result Body Mass Index 32.4 BMI Assessment/Plan discussion: High BMI High, discussed plan: lifestyle, weight reduction, dietary, physical activity and alcohol moderation Tobacco/Smoking Status: Tobacco use Status Tobacco use date assessed 11/07/24 11/07/24 15:00 Patient Tobacco Use Status Former Tobacco user 11/07/24 15:00 Tobacco use type Cigarette 11/07/24 15:00 e-Cigarette/Vaping Use Currently Using 11/07/24 15:00 PHQ-9: PHQ-9 Score PHQ-9: Total score 10 11/07/24 15:00 Depression Screening Interpretation: Positive Depression Screening Follow-up: Existing condition and In treatment Thrive Assessment: Date of Thrive Assessment Date Thrive assessed 10/22/24 11/07/24 15:00 Currently or been in a relationship where the following occur: No concerns reported Const Other: Appearance: Alert. Oriented X3. No acute distress. Head: Normal external exam. Normocephalic. Atraumatic. Eyes: Pupils are equal, round, and reactive to light. Extraocular movements intact. Conjunctiva and sclera normal. Eyelids normal. Throat: Pharynx normal. Uvula midline. Moist mucous membranes. Neck: Normal inspection. Neck supple. Full range of motion. Cardiovascular: Normal heart rate and rhythm. Respiratory: No respiratory distress. Painless inspiration. Back: Full range of motion noted. Skin: Skin warm and dry. Normal skin color. Normal skin turgor. To left axillary patient has 3 x 3 cm fluctuant abscess. No streaking, foreign bodies, purulent drainage noted at this time. No additional rashes/lesions/lacerations noted. Extremities: Extremities exhibit normal range of motion. Neuro: Oriented X 3. No motor deficit. No sensory deficit. Reflexes normal. Office Procedures Incision and Drainage Details: Left axillary abscess Incision and drainage performed by: Cassandra Mccoy Informed consent given: Yes Consent signed: Yes (Verbally given) Time out checklist: patient, procedure, site marked/identified, positioning of patient, supplies available, allergies confirmed and team agrees on procedure Time out staff in room: Yes Time out verified: Yes Time out date: 11/07/24 Time out time: 16:16 Location: Left axillary Anesthesia: local (Injectable lidocaine 1%) and other (Finley lidocaine) Incision with: #11 blade Drainage quality: purulent Probed cavity: Yes Culture taken: No Lesion: erythema, drainage, fluctuance and induration Lesion size (cm): 3 Hemostasis: pressure Cavity management: irrigated and packing Dressing: gauze Patient tolerated procedure: well Complications: No Coding Level of Care Code Est Pt Level 4 (21368) Complex EM visit Add On G2211 Diagnoses Cellulitis L03.90 Abscess of left axilla L02.412 Additional Codes WILD-7 Assessment Billing - WILD-7 Assessment Tool: WILD-7 Assessment 97622 ([id number]) PHQ-9 - 88328 - PHQ-9 Billing: Yes ([id number]) Time Spent (min) 50 Assessment & Plan Assessment & Plan (1) Cellulitis: Code(s): L03.90 - Cellulitis, unspecified Category: Medical (2) Abscess of left axilla: Code(s): L02.412 - Cutaneous abscess of left axilla Category: Medical Plan: 1. Cellulitis/abscess to left axillary - patient will be started on doxycycline and Keflex for left axillary cellulitis/abscess that was just I and D. Patient to return on Sunday for wound check/packing removal. Plan Plan: 1. Cellulitis/abscess to left axillary - patient will be started on doxycycline and Keflex for left axillary cellulitis/abscess that was just I and D. Patient to return on Sunday for wound check/packing removal. Patient instructed to clean wound twice a day with normal saline. Two not wet the dressing and to take a shower with the dressing on with the bag overlying and then change the dressing after shower. He is instructed that if the packing falls out not to replaced. He will return on Sunday for wound check/packing removal. He will be started on doxycycline and Keflex for the next 7 days. Patient with girlfriend at bedside understand agree this plan. Medications: New cephalexin 500 mg PO Q6H 28 caps 0RF 7 days Cassandra Mccoy PA-C doxycycline hyclate 100 mg PO BID 14 tabs 0RF 7 days Cassandra Mccoy PA-C Changed From lamotrigine (Lamictal) Take with 100mg tablet to total 125mg daily. 25 mg PO DAILY 30 days 90 tabs 1RF To lamotrigine (Lamictal) Take with 100mg tablet to total 125mg daily. 50 mg PO DAILY Cassandra Mccoy PA-C From olanzapine 5 mg PO BID 30 days PRN 60 tabs 0RF agitation To olanzapine 15 mg PO ONCE Latha Hanley NP Patient Instructions: Patient instructed to clean wound twice a day with normal saline. Two not wet the dressing and to take a shower with the dressing on with the bag overlying and then change the dressing after shower. He is instructed that if the packing falls out not to replaced. He will return on Sunday for wound check/packing removal. He will be started on doxycycline and Keflex for the next 7 days. Patient with girlfriend at bedside understand agree this plan.
[2024-11-07 14:57] VITALS: BP 128/80; PULSE 116; TEMP 37.1; O2SAT 98; BMI 32.4
== END 2024-11-07 16:07 | disposition home or self-care (01) ==
PROVIDERS: PCP Internal Medicine; Visit Provider Physician Assistant Medical
DX: L03.90 Cellulitis, unspecified (principal); L02.412 Cutaneous abscess of left axilla

== ENCOUNTER → 2024-11-07 14:50 | Outpatient (BNVA) | payer BC, SELFPAY | PROVIDERS: PCP Internal Medicine; Visit Provider Physician Assistant Medical | DX: L02.412 Cutaneous abscess of left axilla (principal); L03.112 Cellulitis of left axilla; Z13.31 Encounter for screening for depression | CPT/HCPCS: 10060; 96127 ==

== ENCOUNTER 2024-11-10 10:24 | Outpatient (AMB) | payer BC, SELFPAY ==
--- NOTE | 2024-11-10 10:24 | MHC.PC.OV ---
Vital Signs 11/10/24 10:25 Height 5 ft 9.69 in Weight 225 lb 8 oz BMI 32.6 BP 118/82 Blood Pressure Location Rt brachial Position Sitting Respiration 17 Pulse 68 Pulse Source Pulse Oximeter Temp 97.3 F Temp Source Temporal Artery Scan Pulse Oximetry (%) 99 Oxygen Delivery Method Room Air Intake Visit Reasons: Wound check Generator Operator Required: No Accompanied by: girlfriend Allergies aripiprazole Allergy (Verified 11/10/24 11:46) Depression sertraline (From Zoloft) Allergy (Verified 11/10/24 11:46) Depression Medication List - Last Reconciled 11/10/24 by Cassandra Mccoy PA-C albuterol sulfate 90 mcg/actuation 2 puffs inhalation Q6H PRN 30 days cephalexin 500 mg PO Q6H 7 days cetirizine (Zyrtec) 10 mg PO DAILY PRN doxycycline hyclate 100 mg PO BID 7 days fluticasone propionate 50 mcg/actuation 1 spray intranasal DAILY 30 days guanfacine ER 1 mg PO BEDTIME 30 days lamotrigine 100 mg PO DAILY 90 days lamotrigine (Lamictal) 50 mg PO DAILY nicotine 1 patch transdermal Q24H olanzapine 15 mg PO ONCE prazosin 1 mg See Protocol PO BEDTIME 30 days trazodone 50 mg PO BEDTIME PRN 30 days Tobacco use date assessed: 11/07/24 Dental Screening Dental Screen Date: 10/22/24 Did you have a dental visit in the last 12 months?: Yes Did you have a dental problem in the last 6 months where you did not have access to dental care?: No Was dental information given to patient?: Patient has dentist HPI Wound check HPI Details 24-year-old male presenting to the primary care clinic for wound check/packing removal to left axillary. He had an abscess I and D by myself here on Sunday11/07/2024 to left axillary with packing placed. He was started on doxycycline and Keflex and taking as prescribed. He denies any fevers, chills, worsening pain, foul odor, worsening drainage, spreading redness, lymphadenopathy, nausea vomiting or any other symptoms complaints or concerns at this time. His girlfriend at bedside is helping him with dressing changes. [facility] Medical History (Updated 11/10/24 @ 11:53 by Cassandra Mccoy PA-C) Wound check, abscess Abscess of left axilla Cellulitis Tinnitus Cyst of buttocks Suicidal ideation Class 1 obesity with body mass index (BMI) of 31.0 to 31.9 in adult Nicotine dependence Vertigo Hypertriglyceridemia Hyperlipidemia LDL goal <100 History of participation in smoking cessation counseling Pain in both testicles Chronic neck and back pain Chronic sinus complaints Asthma Insomnia Anxiety and depression Establishing care with new doctor, encounter for Bipolar 1 disorder Family History Father Type 2 diabetes mellitus Mother Plantar fasciitis, bilateral Social History Household Members: Significant Other Housing: Apartment Do you presently have visiting nurse or other home services: No Alcohol intake: current Alcohol intake frequency: does not drink Patient Tobacco Use Status: Former Tobacco user Tobacco use type: Cigarette e-Cigarette/Vaping Use: Currently Using Second Hand Smoke Exposure: Yes Substance Use Type: Marijuana service: No Current occupational status: employed Sexual orientation: Straight/Heterosexual Cognitive needs: No Hearing needs: No Vision needs: No Questionnaire PHQ-9 Over the last 2 weeks, how often have you been bothered by any of the following problems? 1. Little interest or pleasure in doing things: not at all 2. Feeling down, depressed, or hopeless: not at all 3. Trouble falling or staying asleep, or sleeping too much: more than half the days 4. Feeling tired or having little energy: not at all 5. Poor appetite or overeating: more than half the days 6. Feeling bad about yourself - or that you are a failure or have let yourself or your family down: not at all 7. Trouble concentrating on things, such as reading the newspaper or watching television: nearly every day 8. Moving or speaking so slowly that other people could have noticed. Or the opposite - being so fidgety or restless that you have been moving around a lot more than usual: nearly every day 9. Thoughts that you would be better off or of hurting yourself in some way: not at all Total score: 10 Depression Screening Interpretation: Positive Depression Screening Follow-up: Existing condition and In treatment Depression Screening Done: Yes 16735 - PHQ-9 Billing: Yes Source: Developed by Waleska Caraballo.W. Flavio, Aryan Gleason and colleagues, with an educational scarlet from [employer]. Thrive Questionnaire Date Thrive assessed: 10/22/24 I am a: Patient What is your living situation today?: I have a steady place to live Within the past 12 months, did the food you bought not last and you didn't have the money to get more?: Never true Within the past 12 months, did you worry whether your food would run out before you got money to buy more?: Never true Do you have trouble paying for medicines?: No Do you have trouble getting transportation to medical appointments?: No Do you have trouble paying your heating and electricity bill?: No Do you have trouble taking care of your child, family member or friend?: No Do you have trouble with day-to-day activities such as bathing, preparing meals, shopping, managing finances, etc.?: No Are you currently unemployed and looking for a job?: No Are you interested in more education?: No Please select the resources that you would like help with: None Currently or been in a relationship where the following occur: No concerns reported THRIVE Score: 0 AUDIT C Alcohol Use Questionnaire (AUDIT-C) 1. How often do you have a drink containing alcohol?: Never 3. How often do you have six or more drinks on one occasion?: Never Total Score: 0 Score Reviewed/Action Taken: No WILD-7 AMB Questionnaire WILD-7 Date WILD - 7 assessed: 10/22/24 Feeling nervous, anxious, or on edge: 1 = Several days Not being able to stop or control worryin = Several days Worrying too much about different things: 0 = Not at all Trouble relaxin = Nearly every day Being so restless that it is hard to sit still: 3 = Nearly every day Becoming easily annoyed or irritable: 2 = More than half the days Feeling afraid as if something awful might happen: 0 = Not at all Total WILD-7 score (0-4 normal; 5-9 mild; 10-14 moderate; 15-21 severe): 10 Source: Developed by Drs. Landon Tran, Waleska Muniz, Aryan Gleason and colleagues, with an educational scarlet from [employer]. WILD-7 Assessment Billing WILD-7 Assessment Tool: WILD-7 Assessment 63951 Review of Systems Const All systems reviewed & are unremarkable except as noted in HPI and below Physical exam (Primary Care) Vital Signs: Last Vital Signs Temp 97.3 F 11/10/24 10:25 Pulse 68 11/10/24 10:25 Resp 17 11/10/24 10:25 BP 118/82 11/10/24 10:25 Pulse Ox 99 11/10/24 10:25 Oxygen Delivery Method Room Air 11/10/24 10:25 BMI result Body Mass Index 32.6 Tobacco/Smoking Status: Tobacco use Status Tobacco use date assessed 11/07/24 11/10/24 10:29 Patient Tobacco Use Status Former Tobacco user 11/10/24 10:29 Tobacco use type Cigarette 11/10/24 10:29 e-Cigarette/Vaping Use Currently Using 11/10/24 10:29 PHQ-9: PHQ-9 Score PHQ-9: Total score 10 11/10/24 10:29 Depression Screening Interpretation: Positive Depression Screening Follow-up: Existing condition and In treatment Thrive Assessment: Date of Thrive Assessment Date Thrive assessed 10/22/24 11/10/24 10:29 Currently or been in a relationship where the following occur: No concerns reported Const Other: Appearance: Alert. Oriented X3. No acute distress. Head: Normal external exam. Normocephalic. Atraumatic. Eyes: Pupils are equal, round, and reactive to light. Extraocular movements intact. Conjunctiva and sclera normal. Eyelids normal. Throat: Pharynx normal. Uvula midline. Moist mucous membranes. Neck: Normal inspection. Neck supple. Full range of motion. Cardiovascular: Normal heart rate and rhythm. Respiratory: No respiratory distress. Painless inspiration. Back: NFull range of motion noted. Skin: Skin warm and dry. Normal skin color. Normal skin turgor. To left axillary patient has wound with packing in place with mild serosanguineous drainage. There is no streaking, foul odor, lymphadenopathy noted at this time. No additional rashes/lesions/lacerations noted. Extremities: Extremities exhibit normal range of motion. Neuro: Oriented X 3. No motor deficit. No sensory deficit. Reflexes normal. Coding Level of Care Code Est Pt Level 4 (46206) Diagnoses Wound check, abscess Z51.89 Additional Codes WILD-7 Assessment Billing - WILD-7 Assessment Tool: WILD-7 Assessment 74556 ([id number]) PHQ-9 - 52833 - PHQ-9 Billing: Yes ([id number]) Assessment & Plan Assessment & Plan (1) Wound check, abscess: Code(s): Z51.89 - Encounter for other specified aftercare Category: Medical Plan: Packing removed. Wound cleaned. Patient to continue doxycycline and Keflex return if any new or worsening symptoms. Plan Patient to continue doxycycline and Keflex. Daily wound cleaning and to return if any new or worsening symptoms. Patient Instructions: Patient to continue doxycycline and Keflex. Daily wound cleaning and to return if any new or worsening symptoms.
[2024-11-10 10:25] VITALS: BP 118/82; PULSE 68; RESP 17; TEMP 36.3; O2SAT 99; BMI 32.6
== END 2024-11-10 10:45 | disposition home or self-care (01) ==
LOC: HO.HMCSH 10:24
PROVIDERS: PCP Internal Medicine; Visit Provider Physician Assistant Medical
DX: Z51.89 Encounter for other specified aftercare (principal)

== ENCOUNTER → 2024-11-10 10:24 | Outpatient (BNVA) | payer BC, SELFPAY | PROVIDERS: PCP Internal Medicine; Visit Provider Physician Assistant Medical | DX: Z51.89 Encounter for other specified aftercare (principal); L02.412 Cutaneous abscess of left axilla; Z13.31 Encounter for screening for depression | CPT/HCPCS: 96127 ==

== ENCOUNTER 2024-11-24 13:47 | Emergency (ER) | payer BC, SELFPAY | END 2024-11-24 14:20 | disposition left against medical advice (07) | PROVIDERS: Emergency Provider Emergency Medicine; PCP Internal Medicine | DX: M54.9 Dorsalgia, unspecified (principal); Z53.21 Procedure and treatment not carried out due to patient leaving prior to being seen by health care provider ==

== ENCOUNTER 2024-12-08 09:52 | Emergency (ER) | payer BC, SELFPAY ==
[2024-12-08 10:19] VITALS: BP 138/61; PULSE 82; RESP 16; TEMP 36.6; O2SAT 98; BMI 33.2
== END 2024-12-08 11:44 | disposition left against medical advice (07) ==
LOC: HO.ED 11:43
PROVIDERS: Emergency Provider Emergency Medicine; PCP Internal Medicine
DX: R10.9 Unspecified abdominal pain (principal); R11.10 Vomiting, unspecified; Z53.21 Procedure and treatment not carried out due to patient leaving prior to being seen by health care provider
CPT/HCPCS: 99281

== ENCOUNTER 2024-12-24 15:16 | Outpatient (REF) | payer BC, SELFPAY ==
--- NOTE | ~2024-12-24 | US_ITS ---
EXAMINATION: US SCROTUM HISTORY: N50.811 - Right testicular pain. COMPARISON: There are no prior studies available for comparison. FINDINGS: Real-time grayscale ultrasound imaging of the scrotum was performed. RIGHT TESTICLE: The right testis measures 4.4 x 2.1 x 2.9 cm and demonstrates normal homogeneous echotexture. No masses are seen. The right testis demonstrates normal color Doppler flow. RIGHT EPIDIDYMIS: Normal in size, shape, and vascularity. LEFT TESTICLE: The left testis measures 4.5 x 1.9 x 2.9 cm and demonstrates normal homogeneous echotexture. No masses are seen. The left testis demonstrates normal color Doppler flow. LEFT EPIDIDYMIS: Normal in size, shape, and vascularity. VARICOCELE: There are small bilateral varicoceles. HYDROCELE: There are small bilateral hydroceles. OTHER COMMENTS: None. US/US scrotum IMPRESSION: Small bilateral varicoceles and hydroceles. No testicular abnormality is identified. Electronically signed by: Landon Perea MD 12/24/2024 03:50 PM EDT
--- OUTSIDE RECORDS SUMMARY | 2024-12-24 16:30 | XMS_ITS | Clinical Summary ---
Author Organization [facility] Address [address] [facility] [address] [place] [phone] Phone Care Team Providers Care Orthodontic Laboratory Technician Name Role Phone Terry Logan MD Primary Care Provider Allergies Active Allergy Reactions Criticality Noted Date Comments Cimetidine 10/15/2022 Medications cyclobenzaprine (FLEXERIL) 10 MG tablet Take 1 tablet (10 mg total) by mouth 3 (three) times a day as needed. 30 tablet 10/15/2022 Active Active Problems No known active problems Social History Tobacco Use Types Packs/Day Years Used Date Smoking Tobacco: Unknown Tobacco Cessation:Counseling Given: No Education Answer Date Recorded Are you interested in more education? Not on soren e 10/15/2022 Are you concerned about learning? Not on file 10/15/2022 No 10/15/2022 No 10/15/2022 Digital Access Answer Date Recorded No 10/15/2022 No 10/15/2022 Reliable internet access at home? Not on file 10/15/2022 Device with a working camera? Not on file Sex and Gender Information Value Date Recorded Sex Assigned at Not on file Legal Sex Male 6:06 PM EST Gender Identity Not on file Sexual Orientation Not on file Last Filed Vital Signs Vital Sign Reading Time Taken Comments Blood Pressure 131/88 10/15/2022 1:48 PM EDT Pulse 86 10/15/2022 1:48 PM EDT Temperature 36.7 C (98 F) 10/15/2022 1:48 PM EDT Respiratory Rate 20 10/15/2022 1:48 PM EDT Oxygen Saturation 97% 10/15/2022 1:48 PM EDT Inhaled Oxygen Concentration - - Weight 93 kg (205 lb) 10/15/2022 1:48 PM EDT Height 177.8 cm (5' 10 ) 10/15/2022 1:48 PM EDT Body Mass Index 29.41 10/15/2022 1:48 PM EDT Plan of Treatment Health Maintenance Due Date Last Done Comments Adult Td,Tdap Booster 2000 DEPRESSION SCREENING 2012 SMOKING Hx and SMOKELESS TOBACCO SCREENING 2013 HEPATITIS C SCREENING 2018 HIV ONE-TIME SCREENING (18-65 YEARS) 2018 COVID-19 VACCINE ( season) 2023 05/13/2021, 09/11/2020, 08/21/2020 PNEUMOCOCCAL VACCINES (0-49 years) Aged Out 2000, 2000, 2000 No longer eligible based on patient's age to complete this topic HIB VACCINES Completed 07/31/2001, 12/2000, 2000, Additional history exists HEPATITIS A VACCINES Completed 07/19/2011, 07/09/19 11 HPV VACCINES Completed 06/30/2014, 05/2013, 10/29/2013 MENINGOCOCCAL VACCINES (ACWY) Completed 12/06/2016, 07/19/2011 MENINGOCOCCAL VACCINES (B) Aged Out N o longer eligible based on patient's age to complete this topic Medical Devices Not on file Insurance PPO EPO [facility] PPO EPO PPO EPO [facility] PPO EPO [employer] [facility] PPO EPO [employer] [facility] [place] [address] [address] [place] [address] PPO EPO Member Subscriber Plan / Payer (Ef fective 2022-Present) Name:Corey Rincon Relation to Subscriber:Child Name:RUBIO RINCON Date of :1967 (Home) Address: [address] [place] [id number] Payer ID:[id number] (NAIC) Type:PPO Address: [address] [place], [place] [address] PPO EPO Member Subscriber Plan / Payer (Ef fective 2022-Present) Name:Corey Rincon Relation to Subscriber:Child Name:RUBIO RINCON Date of :1967 (Home) Address: [address] [place] [id number] Payer ID:[id number] (NAIC) Type:PPO Address: [address] [place], [place] [address] [address] [place] [address] [address] [place] [address] PPO EPO Member Subscriber Plan / Payer (Ef fective 2022-Present) Name:Corey Rincon Relation to Subscriber:Child Name:SERGEYRUBIO Date of :1967 (Home) Address: [address] [place] [id number] Payer ID:[id number] (NAIC) Type:PPO Address: [id number] [place], [place] [facility] PPO EPO Care Teams Orthodontic Laboratory Technician Relationship Specialty Start Date End Date Terry Logan MD [address] [place] [address] PCP - General Pediatrics 12/14/14 Additional Source Comments The information contained in this document represents components of the legal health record. It is not the complete legal health record.[facility]
== END 2024-12-24 15:17 | disposition home or self-care (01) ==
LOC: HO.HMGCX 15:16
PROVIDERS: PCP Physician Assistant Medical; Visit Provider Physician Assistant Medical
DX: N50.811 Right testicular pain (principal); N50.812 Left testicular pain
CPT/HCPCS: 76870

== ENCOUNTER → 2024-12-24 15:23 | Outpatient (BNV) | payer BC, SELFPAY | PROVIDERS: PCP Physician Assistant Medical; Visit Provider Radiology Diagnostic Radiology | DX: I86.1 Scrotal varices (principal) | CPT/HCPCS: 76870 ==

== ENCOUNTER 2025-01-14 15:17 | Outpatient (AMB) | payer BC, SELFPAY ==
--- NOTE | 2025-01-14 15:18 | A.OFFPC_ITS ---
Vital Signs 01/14/25 15:19 Height 5 ft 9.69 in Weight 233 lb BMI 33.7 BP 136/63 Respiration 16 Pulse 92 Pulse Source Pulse Oximeter Temp 98.1 F Temp Source Temporal Artery Scan Pulse Oximetry (%) 99 Oxygen Delivery Method Room Air Intake Visit Reasons: 3 month follow up Executive Steward Required: No Accompanied by: Self / Same As Patient Allergies aripiprazole Allergy (Verified 01/14/25 16:09) Depression sertraline (From Zoloft) Allergy (Verified 01/14/25 16:09) Depression Medication List - Last Reconciled 01/14/25 by Cassandra Mccoy PA-C albuterol sulfate 90 mcg/actuation 2 puffs inhalation Q6H PRN 30 days cetirizine (Zyrtec) 10 mg PO DAILY PRN fluticasone propionate 50 mcg/actuation 1 spray intranasal DAILY 30 days guanfacine ER 2 mg (2 x 1 mg) PO BEDTIME 30 days lamotrigine 200 mg PO DAILY lisdexamfetamine 30 mg PO DAILY olanzapine 15 mg PO BEDTIME prazosin 1 mg See Protocol PO BEDTIME 30 days trazodone 50 mg PO BEDTIME PRN 30 days Tobacco use date assessed: 01/14/25 Dental Screening Dental Screen Date: 10/22/24 HPI 3 month follow up HPI Details The patient is a 24-year-old male presenting with a three-month follow- up visit. The patient has been diagnosed with Attention Deficit Hyperactivity Disorder (ADHD) and is currently on lisdexamfetamine, which is the generic form of Vyvanse. This is the first day on the new medication, and the patient has been experiencing significant fatigue during the day prior to starting this medication. The patient reports a history of hypertension, which is managed with guanfacine, helping to control blood pressure, especially during stressful situations. The patient has a skin tag that has been increasing in frequency and pain. A referral to dermatology was discussed but not previously made. The patient has a history of varicocele and hydrocele, which were identified during an ultrasound. The varicocele could potentially affect fertility, and a referral to urology has been made. Social history - Family status: The patient has a girlf riyvonne who is supportive and involved in his care. - Weight management: The patient is atte mpting to lose weight and convert fat to muscle. [facility] Medical History (Updated 01/14/25 @ 16:12 by Cassandra Mccoy PA-C) Fatigue Hydrocele Varicocele Hypertension ADHD Need for assessment for sleep apnea Skin tag Wound check, abscess Abscess of left axilla Cellulitis Tinnitus Cyst of buttocks Suicidal ideation Class 1 obesity with body mass index (BMI) of 31.0 to 31.9 in adult Nicotine dependence Vertigo Hypertriglyceridemia Hyperlipidemia LDL goal <100 History of participation in smoking cessation counseling Pain in both testicles Chronic neck and back pain Chronic sinus complaints Asthma Insomnia Anxiety and depression Establishing care with new doctor, encounter for Bipolar 1 disorder Family History Father Type 2 diabetes mellitus Mother Plantar fasciitis, bilateral Social History Household Members: Significant Other Housing: Apartment Do you presently have visiting nurse or other home services: No Alcohol intake: current Alcohol intake frequency: does not drink Patient Tobacco Use Status: Former Tobacco user Tobacco use type: Cigarette e-Cigarette/Vaping Use: Currently Using Second Hand Smoke Exposure: Yes Substance Use Type: Marijuana service: No Current occupational status: employed Sexual orientation: Straight/Heterosexual Cognitive needs: No Hearing needs: No Vision needs: No Questionnaire PHQ-9 Over the last 2 weeks, how often have you been bothered by any of the following problems? 1. Little interest or pleasure in doing things: not at all 2. Feeling down, depressed, or hopeless: not at all 3. Trouble falling or staying asleep, or sleeping too much: more than half the days 4. Feeling tired or having little energy: not at all 5. Poor appetite or overeating: more than half the days 6. Feeling bad about yourself - or that you are a failure or have let yourself or your family down: not at all 7. Trouble concentrating on things, such as reading the newspaper or watching television: nearly every day 8. Moving or speaking so slowly that other people could have noticed. Or the opposite - being so fidgety or restless that you have been moving around a lot more than usual: nearly every day 9. Thoughts that you would be better off or of hurting yourself in some way: not at all Total score: 10 Depression Screening Interpretation: Positive Depression Screening Follow-up: Existing condition and In treatment Depression Screening Done: Yes 00147 - PHQ-9 Billing: Yes Source: Developed by Drs. Landon Tran, Waleska Muniz, Aryan Gleason and colleagues, with an educational scarlet from [employer]. Thrive Questionnaire Date Thrive assessed: 11/10/24 I am a: Patient What is your living situation today?: I have a steady place to live Within the past 12 months, did the food you bought not last and you didn't have the money to get more?: Never true Within the past 12 months, did you worry whether your food would run out before you got money to buy more?: Never true Do you have trouble paying for medicines?: No Do you have trouble getting transportation to medical appointments?: No Do you have trouble paying your heating and electricity bill?: No Do you have trouble taking care of your child, family member or friend?: No Do you have trouble with day-to-day activities such as bathing, preparing meals, shopping, managing finances, etc.?: No Are you currently unemployed and looking for a job?: No Are you interested in more education?: No Please select the resources that you would like help with: None Currently or been in a relationship where the following occur: No concerns reported THRIVE Score: 0 AUDIT C Alcohol Use Questionnaire (AUDIT-C) 1. How often do you have a drink containing alcohol?: Never 3. How often do you have six or more drinks on one occasion?: Never Total Score: 0 Score Reviewed/Action Taken: No WILD-7 AMB Questionnaire WILD-7 Date WILD - 7 assessed: 10/22/24 Feeling nervous, anxious, or on edge: 1 = Several days Not being able to stop or control worryin = Several days Worrying too much about different things: 0 = Not at all Trouble relaxin = Nearly every day Being so restless that it is hard to sit still: 3 = Nearly every day Becoming easily annoyed or irritable: 2 = More than half the days Feeling afraid as if something awful might happen: 0 = Not at all Total WILD-7 score (0-4 normal; 5-9 mild; 10-14 moderate; 15-21 severe): 10 Source: Developed by Waleska Caraballo B.W. Flavio, Aryan Gleason and colleagues, with an educational scarlet from [employer]. WILD-7 Assessment Billing WILD-7 Assessment Tool: WILD-7 Assessment 62291 Review of Systems Const Details: - General: Reports fatigue during the day. - Dermatological: Reports skin tag increasing in frequency and pain. - Cardiovascular: Reports hypertension managed with guanfacine. All systems reviewed & are unremarkable except as noted in HPI and below Physical exam (Primary Care) Vital Signs: Last Vital Signs Temp 98.1 F 01/14/25 15:19 Pulse 92 01/14/25 15:19 Resp 16 01/14/25 15:19 BP 136/63 01/14/25 15:19 Pulse Ox 99 01/14/25 15:19 Oxygen Delivery Method Room Air 01/14/25 15:19 Care Plan Goal for BP management: <140/90 at Goal BMI result Body Mass Index 33.7 BMI Assessment/Plan discussion: High BMI High, discussed plan: lifestyle, weight reduction, dietary, physical activity, alcohol moderation and other Tobacco/Smoking Status: Tobacco use Status Tobacco use date assessed 01/14/25 01/14/25 15:32 Patient Tobacco Use Status Former Tobacco user 01/14/25 15:32 Tobacco use type Cigarette 01/14/25 15:21 e-Cigarette/Vaping Use Currently Using 01/14/25 15:21 PHQ-9: PHQ-9 Score PHQ-9: Total score 10 01/14/25 15:32 Depression Screening Interpretation: Positive Depression Screening Follow-up: Existing condition and In treatment Thrive Assessment: Date of Thrive Assessment Date Thrive assessed 11/10/24 01/14/25 15:32 Currently or been in a relationship where the following occur: No concerns reported Const Other: Appearance: Alert. Oriented X3. No acute distress. Head: Normal external exam. Normocephalic. Atraumatic. Eyes: Pupils are equal, round, and reactive to light. Extraocular movements intact. Conjunctiva and sclera normal. Eyelids normal. Throat: Pharynx normal. Uvula midline. Moist mucous membranes. Neck: Normal inspection. Neck supple. Full range of motion. Cardiovascular: Normal heart rate and rhythm. Respiratory: No respiratory distress. Painless inspiration. Back: Full range of motion noted. Skin: Skin warm and dry. Normal skin color. Normal skin turgor. Patient reports a flat wart that has been popping more frequently and becoming more painful to the left buttocks. Another skin tag is noted. No infections are noted. No additional rashes/lesions/lacerations noted. Extremities: Extremities exhibit normal range of motion. Neuro: Oriented X 3. No motor deficit. No sensory deficit. Reflexes normal. Results Reviewed Results Reviewed: - Ultrasound: Identified varicocele and hydrocele. Coding Level of Care Code Est Pt Level 4 (10536) Complex EM visit Add On G2211 Diagnoses ADHD F90.9 Hypertension I10 Skin tag L91.8 Varicocele I86.1 Hydrocele N43.3 Fatigue R53.83 Additional Codes WILD-7 Assessment Billing - WILD-7 Assessment Tool: WILD-7 Assessment 87325 ([id number]) PHQ-9 - 08461 - PHQ-9 Billing: Yes ([id number]) Assessment & Plan Assessment & Plan (1) ADHD: Code(s): F90.9 - Attention-deficit hyperactivity disorder, unspecified type Category: Medical Plan: The patient is currently on lisdexamfetamine for ADHD management, which is the generic form of Vyvanse. This is the first day on the new medication, and the patient will monitor for any changes in symptoms, particularly fatigue. (2) Hypertension: Code(s): I10 - Essential (primary) hypertension Category: Medical Plan: Hypertension is managed with guanfacine, which helps control blood pressure during stressful situations. (3) Skin tag: Code(s): L91.8 - Other hypertrophic disorders of the skin Category: Medical Plan: The patient has a skin tag that has been increasing in frequency and pain, and a referral to dermatology is planned for further evaluation and management. (4) Varicocele: Code(s): I86.1 - Scrotal varices Category: Medical Plan: The patient has a varicocele, which could potentially affect fertility. A referral to urology has been made for further evaluation and management. (5) Hydrocele: Code(s): N43.3 - Hydrocele, unspecified Category: Medical Plan: The patient has a hydrocele, which is not currently causing significant issues but will be monitored. (6) Fatigue: Code(s): R53.83 - Other fatigue Category: Medical Plan: The patient reports significant fatigue during the day, and a sleep study is planned to evaluate for possible sleep apnea. Plan Plan Patient was informed and verbally consented to the use of an ambient scribe for clinic note documentation during this visit. 1. Attention Deficit Hyperactivity Disorder (Adhd) The patient is currently on lisdexamfetamine for ADHD management, which is the generic form of Vyvanse. This is the first day on the new medication, and the patient will monitor for any changes in symptoms, particularly fatigue. 2. Hypertension Hypertension is managed with guanfacine, which helps control blood pressure during stressful situations. 3. Skin Tag The patient has a skin tag that has been increasing in frequency and pain, and a referral to dermatology is planned for further evaluation and management. 4. Varicocele The patient has a varicocele, which could potentially affect fertility. A referral to urology has been made for further evaluation and management. 5. Hydrocele The patient has a hydrocele, which is not currently causing significant issues but will be monitored. 6. Fatigue The patient reports significant fatigue during the day, and a sleep study is planned to evaluate for possible sleep apnea. During the visit, we discussed the management of ADHD with lisdexamfetamine and the potential impact on fatigue. We also reviewed the patient's hypertension management with guanfacine and the need for dermatology referral for the skin tag. The implications of varicocele on fertility were explained, and a urology referral was confirmed. A sleep study was recommended to assess for sleep apnea due to reported fatigue. Orders: Orders Dihydrotestosterone Today Z00.00 - Encounter for general adult medical examination without abnormal findings RT home sleep study Today Z01.89 - Encounter for other specified special examinations Testosterone, Free/Total Today Z00.00 - Encounter for general adult medical examination without abnormal findings DHEA Sulfate Today Z00.00 - Encounter for general adult medical examination without abnormal findings Referrals Dermatology Referral L91.8 - Other hypertrophic disorders of the skin Medications: Changed From guanfacine ER 1 mg PO BEDTIME 30 tabs 0RF 30 days To guanfacine ER 2 mg (2 x 1 mg) PO BEDTIME 60 tabs 0RF 30 days Patient Instructions: - Continue taking lisdexamfetamine as prescribed and monitor for changes in symptoms. - Follow up with dermatology for evaluation of the skin tag. - Attend the urology appointment for further evaluation of varicocele and hydrocele. - Schedule and complete the sleep study to assess for sleep apnea.
[2025-01-14 15:19] VITALS: BP 136/63; PULSE 92; RESP 16; TEMP 36.7; O2SAT 99; BMI 33.7
--- OUTSIDE RECORDS SUMMARY | 2025-01-14 18:46 | XMS_ITS | Clinical Summary ---
Author Organization [facility] Address [address] [facility] [address] [place] [phone] Phone Care Team Providers Care Meat Carrier Name Role Phone Terry Logan MD Primary [...] 2018 HIV ONE-TIME SCREENING (18-65 YEARS) 2018 INFLUENZA VACCINE (#1) 2024 , 03/30/2020, 07/19/2011, Additional history exists COVID-19 VACCINE (2024- season) 2024 05/13/2021, 09/11/2020, 08/21/2020 PNEUMOCOCCAL VACCINES (0-49 years) [...] Devices Not on file Insurance PPO EPO PPO EPO [facility] PPO EPO [employer] [facility] PPO EPO PPO E[place] [address] [place] [address] [address] [place] [address] PPO EPO [facility] [place] [address] [place] [address] [address] [place] [address] PPO EPO [facility] PPO EPO Care Teams Meat Carrier Relationship Specialty Start Date End Date Terry Logan MD [address] [place] [id number] PCP - General Pediatrics 12/14/14 Additional Source Comments The information contained in this document represents components of the legal health record. It is not the complete legal health record.[facility]
== END 2025-01-14 16:21 | disposition home or self-care (01) ==
LOC: HO.HMCSH 15:17
PROVIDERS: PCP Physician Assistant Medical; Visit Provider Physician Assistant Medical
DX: F90.9 Attention-deficit hyperactivity disorder, unspecified type (principal); I10 Essential (primary) hypertension; L91.8 Other hypertrophic disorders of the skin; I86.1 Scrotal varices; N43.3 Hydrocele, unspecified; R53.83 Other fatigue

== ENCOUNTER → 2025-01-14 15:17 | Outpatient (BNVA) | payer BC, SELFPAY | PROVIDERS: PCP Physician Assistant Medical; Visit Provider Physician Assistant Medical | DX: I10 Essential (primary) hypertension (principal); F90.9 Attention-deficit hyperactivity disorder, unspecified type; L91.8 Other hypertrophic disorders of the skin; I86.1 Scrotal varices; N43.3 Hydrocele, unspecified; R53.83 Other fatigue | CPT/HCPCS: 96127 ==

== ENCOUNTER 2025-01-19 11:33 | Outpatient (REF) | payer BC, SELFPAY ==
[2025-01-19 12:48] LABS: Magnesium 1.9 mg/dL (1.6-2.6)
[2025-01-19 13:00] LABS: PSA,Total (Free>4and<10) 0.51 ng/mL (0.00-4.00)
[2025-01-19 13:17] LABS: Folate 14.4 ng/mL (> or = 4.0); Vitamin B12 647 pg/mL (200-900)
[2025-01-24 13:44] LABS: Testosterone, Free 55.4 pg/mL (35.0-155.0)
== END 2025-01-19 11:34 | disposition home or self-care (01) ==
LOC: HO.LAB 11:33
PROVIDERS: Visit Provider Physician Assistant Medical
DX: Z00.00 Encounter for general adult medical examination without abnormal findings (principal); Z12.5 Encounter for screening for malignant neoplasm of prostate; Z13.29 Encounter for screening for other suspected endocrine disorder
CPT/HCPCS: 36415; 82306; 82607; 82627; 82642; 82746; 83735; 84153; 84402; 84403; 84443

== ENCOUNTER 2025-02-18 12:59 | Outpatient (AMB) | payer BC, SELFPAY ==
--- NOTE | 2025-02-18 13:02 | A.OFFPC_ITS ---
Vital Signs 02/18/25 13:07 Height 5 ft 9.88 in Weight 235 lb 8 oz BMI 33.9 BP 136/82 Blood Pressure Location Rt brachial Position Sitting Pulse 91 Pulse Source Pulse Oximeter Temp 97.8 F Temp Source Temporal Artery Scan Pulse Oximetry (%) 98 Oxygen Delivery Method Room Air Intake Visit Reasons: Left arm pain due cyst Field Reviewer Required: No Accompanied by: Self / Same As Patient Allergies aripiprazole Allergy (Verified 02/18/25 14:12) Depression sertraline (From Zoloft) Allergy (Verified 02/18/25 14:12) Depression Medication List - Last Reconciled 02/18/25 by Cassandra Mccoy PA-C albuterol sulfate 90 mcg/actuation 2 puffs inhalation Q6H PRN 30 days cetirizine (Zyrtec) 10 mg PO DAILY PRN fluticasone propionate 50 mcg/actuation 1 spray intranasal DAILY 30 days guanfacine ER 2 mg (2 x 1 mg) PO BEDTIME 30 days lamotrigine 200 mg PO DAILY lisdexamfetamine 30 mg PO DAILY olanzapine 15 mg PO BEDTIME prazosin 1 mg See Protocol PO BEDTIME 30 days trazodone 50 mg PO BEDTIME PRN 30 days Tobacco use date assessed: 02/18/25 Dental Screening Dental Screen Date: 02/18/25 Did you have a dental visit in the last 12 months?: Yes Was dental information given to patient?: Patient has dentist HPI Left arm pain due cyst HPI Details The patient is a 24-year-old male presenting with pain and tightness in the left arm. The tightness, described as a rubber band sensation, extends from the armpit to the elbow and began after an abscess drainage approximately a month and a half ago. There is no fever or chills, and no known history of MRSA. An ultrasound was performed at [facility] to exclude blood clots, and the cyst has not returned since the procedure. Pain occurs upon full extension of the arm, with tightness noted between the muscle. The patient has a history of low testosterone and is scheduled for a urology consultation. A skin tag on the tailbone remains untreated, with a dermatology referral in process. 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 [facility] Medical History (Updated 02/18/25 @ 14:18 by Cassandra Mccoy PA-C) Low testosterone level in male Axillary abscess Left arm swelling Left arm pain Fatigue Hydrocele Varicocele Hypertension ADHD Need for assessment for sleep apnea Skin tag Wound check, abscess Abscess of left axilla Cellulitis Tinnitus Cyst of buttocks Suicidal ideation Class 1 obesity with body mass index (BMI) of 31.0 to 31.9 in adult Nicotine dependence Vertigo Hypertriglyceridemia Hyperlipidemia LDL goal <100 History of participation in smoking cessation counseling Pain in both testicles Chronic neck and back pain Chronic sinus complaints Asthma Insomnia Anxiety and depression Establishing care with new doctor, encounter for Bipolar 1 disorder Family History Father Type 2 diabetes mellitus Mother Plantar fasciitis, bilateral Social History Household Members: Significant Other Housing: House Do you presently have visiting nurse or other home services: No Alcohol intake: current Alcohol intake frequency: does not drink Patient Tobacco Use Status: Current everyday Tobacco user Tobacco use type: Cigarette e-Cigarette/Vaping Use: Currently Using Second Hand Smoke Exposure: Yes Substance Use Type: Marijuana service: No Current occupational status: employed Sexual orientation: Straight/Heterosexual Cognitive needs: No Hearing needs: No Vision needs: No Questionnaire PHQ-9 Over the last 2 weeks, how often have you been bothered by any of the following problems? 1. Little interest or pleasure in doing things: not at all 2. Feeling down, depressed, or hopeless: not at all 3. Trouble falling or staying asleep, or sleeping too much: more than half the days 4. Feeling tired or having little energy: not at all 5. Poor appetite or overeating: more than half the days 6. Feeling bad about yourself - or that you are a failure or have let yourself or your family down: not at all 7. Trouble concentrating on things, such as reading the newspaper or watching television: nearly every day 8. Moving or speaking so slowly that other people could have noticed. Or the opposite - being so fidgety or restless that you have been moving around a lot more than usual: nearly every day 9. Thoughts that you would be better off or of hurting yourself in some way: not at all Total score: 10 Depression Screening Interpretation: Positive Depression Screening Follow-up: Existing condition and In treatment Depression Screening Done: Yes 56066 - PHQ-9 Billing: Yes Source: Developed by Drs. Landon Tran, Waleska Muniz, Aryan Gleason and colleagues, with an educational scarlet from [employer]. Thrive Questionnaire Date Thrive assessed: 02/18/25 I am a: Patient What is your living situation today?: I have a steady place to live Within the past 12 months, did the food you bought not last and you didn't have the money to get more?: Never true Within the past 12 months, did you worry whether your food would run out before you got money to buy more?: Never true Do you have trouble paying for medicines?: No Do you have trouble getting transportation to medical appointments?: No Do you have trouble paying your heating and electricity bill?: No Do you have trouble taking care of your child, family member or friend?: No Do you have trouble with day-to-day activities such as bathing, preparing meals, shopping, managing finances, etc.?: No Are you currently unemployed and looking for a job?: No Are you interested in more education?: No Please select the resources that you would like help with: None Currently or been in a relationship where the following occur: No concerns reported THRIVE Score: 0 AUDIT C Alcohol Use Questionnaire (AUDIT-C) 1. How often do you have a drink containing alcohol?: Never 3. How often do you have six or more drinks on one occasion?: Never Total Score: 0 Score Reviewed/Action Taken: No WILD-7 AMB Questionnaire WILD-7 Date WILD - 7 assessed: 02/18/25 Feeling nervous, anxious, or on edge: 1 = Several days Not being able to stop or control worryin = Several days Worrying too much about different things: 0 = Not at all Trouble relaxin = Nearly every day Being so restless that it is hard to sit still: 3 = Nearly every day Becoming easily annoyed or irritable: 2 = More than half the days Feeling afraid as if something awful might happen: 0 = Not at all Total WILD-7 score (0-4 normal; 5-9 mild; 10-14 moderate; 15-21 severe): 10 Source: Developed by Drs. Landon Tran, Waleska Muniz, Aryan Gleason and colleagues, with an educational scarlet from [employer]. WILD-7 Assessment Billing WILD-7 Assessment Tool: WILD-7 Assessment 69653 Review of Systems Const Details: - General: Denies fever or chills. - Musculoskeletal: Reports tightness and pain in the left arm from armpit to elbow. All systems reviewed & are unremarkable except as noted in HPI and below Physical exam (Primary Care) Vital Signs: Last Vital Signs Temp 97.8 F 02/18/25 13:07 Pulse 91 02/18/25 13:07 BP 136/82 02/18/25 13:07 Pulse Ox 98 02/18/25 13:07 Oxygen Delivery Method Room Air 02/18/25 13:07 Care Plan Goal for BP management: <140/90 at goal BMI result Body Mass Index 33.9 BMI Assessment/Plan discussion: High BMI High, discussed plan: lifestyle, weight reduction, dietary, physical activity, alcohol moderation and other Tobacco/Smoking Status: Tobacco use Status Tobacco use date assessed 02/18/25 02/18/25 13:03 Patient Tobacco Use Status Current everyday Tobacco 02/18/25 13:09 Tobacco use type Cigarette 02/18/25 13:03 e-Cigarette/Vaping Use Currently Using 02/18/25 13:03 PHQ-9: PHQ-9 Score PHQ-9: Total score 10 02/18/25 13:14 Depression Screening Interpretation: Positive Depression Screening Follow-up: Existing condition and In treatment Thrive Assessment: Date of Thrive Assessment Date Thrive assessed 02/18/25 02/18/25 13:03 Currently or been in a relationship where the following occur: No concerns reported Const Other: Appearance: Alert. Oriented X3. No acute distress. Head: Normal external exam. Normocephalic. Atraumatic. Eyes: Pupils are equal, round, and reactive to light. Extraocular movements intact. Conjunctiva and sclera normal. Eyelids normal. Throat: Pharynx normal. Uvula midline. Moist mucous membranes. Neck: Normal inspection. Neck supple. Full range of motion. Cardiovascular: Normal heart rate and rhythm. Respiratory: No respiratory distress. Painless inspiration. Back: Full range of motion noted. Skin: Skin warm and dry. Normal skin color. Normal skin turgor. No rashes/lesions/lacerations noted. Extremities: Pain and swelling noted in the left arm near the axillary area extending to the elbow with decreased range of motion of the left shoulder and elbow joint. Tightness from the armpit to the elbow. Otherwise all other e xtremities exhibit normal range of motion nontender. Neuro: Oriented X 3. No motor deficit. No sensory deficit. Reflexes normal. Office Procedures Flu Questionnaire Does the patient have a severe egg allergy?: No Does the patient have severe life threatening allergies?: No Does the patient have a fever or illness today?: No Has the patient ever had Guillain-Deane Syndrome?: No Has the patient ever had any past reaction to a flu shot?: No Immunizations Fluarix [id number] (PF) 45 mcg (15 mcg x 3)/0.5 mL IM syringe Performing Provider: Cassandra Mccoy PA-C [facility] Administered by: Destinee Denise CMA on 02/18/25 13:14 Dose Route Admin Location Dispensed Lot Number Expiration Date [facility] Minister 0.5 mL IM Right Deltoid 0.5 mL [id number] 10/27/25 [id number] [employer] VIS Given Date VIS Provided VIS Publication Date 02/18/25 Single Vaccine 24 Eligibility Eligibility Date Funding Source Not [facility] Eligible 02/18/25 Private Results Reviewed Results Reviewed: - Ultrasound: Performed at [facility] to rule out blood clots, which were negative per patient. Coding Level of Care Code Est Pt Level 4 (94205) Complex EM visit Add On G2211 Diagnoses Left arm pain M79.602 Left arm swelling M79.89 Low testosterone level in male R79.89 Skin tag L91.8 Additional Codes WILD-7 Assessment Billing - WILD-7 Assessment Tool: WILD-7 Assessment 24538 ([id number]) PHQ-9 - 91967 - PHQ-9 Billing: Yes ([id number]) Assessment & Plan Assessment & Plan (1) Left arm pain: Code(s): M79.602 - Pain in left arm Category: Medical Plan: A CT scan is planned to evaluate the tightness and pain in the left arm, with a CBC and basic metabolic panel to accompany the scan. If the CT scan is inconclusive, referrals to physical therapy and orthopedics will be made to investigate possible tendon or ligament issues. (2) Left arm swelling: Code(s): M79.89 - Other specified soft tissue disorders Category: Medical Plan: A CT scan is planned to evaluate the tightness and pain in the left arm, with a CBC and basic metabolic panel to accompany the scan. If the CT scan is inconclusive, referrals to physical therapy and orthopedics will be made to investigate possible tendon or ligament issues. (3) Low testosterone level in male: Code(s): R79.89 - Other specified abnormal findings of blood chemistry Category: Medical Plan: The patient is scheduled for a urology consultation to address low testosterone levels. (4) Skin tag: Code(s): L91.8 - Other hypertrophic disorders of the skin Category: Medical Plan: A dermatology referral is pending for the skin tag on the tailbone. Plan Plan Patient was informed and verbally consented to the use of an ambient scribe for clinic note documentation during this visit. 1. Pain And Tightness In Left Arm A CT scan is planned to evaluate the tightness and pain in the left arm, with a CBC and basic metabolic panel to accompany the scan. If the CT scan is inconclusive, referrals to physical therapy and orthopedics will be made to investigate possible tendon or ligament issues. 2. Low Testosterone The patient is scheduled for a urology consultation to address low testosterone levels. 3. Cyst On Tailbone A dermatology referral is pending for the cyst on the tailbone. I discussed with the patient the plan to perform a CT scan to evaluate the left arm tightness and pain, and the need for accompanying blood work. We also talked about the possibility of referring to physical therapy and orthopedics if the CT scan does not show significant findings. The patient was informed about the pending dermatology referral for the tailbone cyst and the upcoming urology appointment for low testosterone. I provided a work note as requested. Orders: Orders Influenza [id number] Immunization Today Z23 - Encounter for immunization Basic Metabolic Panel Today Z00.00 - Encounter for general adult medical examination without abnormal findings Complete Blood Count no Diff Today Z00.00 - Encounter for general adult medical examination without abnormal findings CT humerus LT w IV con Today L02.419 - Cutaneous abscess of limb, unspecified, M79.602 - Pain in left arm, M79.89 - Other specified soft tissue disorders Patient Instructions: - Follow up with the CT scan and complete the blood work as instructed. - Attend the upcoming urology appointment for low testosterone evaluation. - Contact dermatology for the referral regarding the cyst on the tailbone. - Return to the clinic if symptoms worsen or new symptoms develop.
[2025-02-18 13:07] VITALS: BP 136/82; PULSE 91; TEMP 36.6; O2SAT 98; BMI 33.9
--- OUTSIDE RECORDS SUMMARY | 2025-02-18 18:10 | XMS_ITS | Clinical Summary ---
Author Organization [facility] Address [address] [place] [phone] Phone Care Team Providers Care Automotive Parts Clerk Name Role Phone Terry Logan MD Primary [...] on file Insurance PPO EPO PPO EPO [facility] PPO EPO [employer] [facility] PPO EPO PPO E[place] [address] [place] [address] [address] [place] [address] PPO EPO [facility] [place] [address] [place] [address] [place] [address] PPO EPO [facility] PPO EPO Care Teams Automotive Parts Clerk Relationship Specialty Start Date End Date Terry Logan MD [address] [place] [id number] PCP - General Pediatrics 12/14/14 Additional Source Comments The information contained in this document represents components of the legal health record. It is not the complete legal health record.[facility]
== END 2025-02-18 13:32 | disposition home or self-care (01) ==
LOC: HO.HMCSH 12:59
PROVIDERS: PCP Physician Assistant Medical; Visit Provider Physician Assistant Medical
DX: M79.602 Pain in left arm (principal); M79.89 Other specified soft tissue disorders; R79.89 Other specified abnormal findings of blood chemistry; L91.8 Other hypertrophic disorders of the skin; Z23 Encounter for immunization

== ENCOUNTER → 2025-02-18 12:59 | Outpatient (BNVA) | payer BC, SELFPAY | PROVIDERS: PCP Physician Assistant Medical; Visit Provider Physician Assistant Medical | DX: M79.602 Pain in left arm (principal); M79.89 Other specified soft tissue disorders; R79.89 Other specified abnormal findings of blood chemistry; L91.8 Other hypertrophic disorders of the skin; L02.419 Cutaneous abscess of limb, unspecified; Z23 Encounter for immunization | CPT/HCPCS: 90471; 90656; 96127 ==

== ENCOUNTER 2025-03-05 10:33 | Outpatient (AMB) | payer BC, SELFPAY ==
--- NOTE | 2025-03-05 11:15 | A.OFFVIS_ITS ---
Intake Visit Reasons: bilateral varicoceles and hydroceles Intake Note: New patient presents today for initial visit for bilateral varicoceles/hydroceles Urology Medication:None Blood Thinner:None Antibiotic Allergies:None Allergies aripiprazole Allergy (Verified 03/05/25 11:15) Depression sertraline (From Zoloft) Allergy (Verified 03/05/25 11:15) Depression HPI Comments Details: 03/05/25-- History of Present Illness The patient is a 24-year-old male presenting with concerns of right testicular pain. He reports that during hot weather, his testicles feel swollen, accompanied by lower abdominal pain and nausea. These symptoms have been present since the 6th or 7th grade, and he previously consulted a urologist at age 15 or 16, who deemed the findings normal. A recent scrotal ultrasound revealed small bilateral varicoceles and hydroceles, which are not considered clinically significant. The patient also experiences cysts in the groin area due to sweating, which may contribute to the pain. He has a history of hidradenitis suppurativa, which affects areas with pores and may be related to his current symptoms. Results - Scrotal ultrasound: Small bilateral varicoceles and hydroceles, testicles normal Plan 1. Bilateral Varicoceles 2. Bilateral Hydroceles - Reassurance provided as ultrasound findings are not clinically significant. - Advised to monitor for any significant changes or symptoms. 3. Hidradenitis Suppurativa (scrotum) - Recommended keeping the area clean and dry to prevent exacerbation. - Advised use of talcum powder to reduce sweating and irritation. - Follow-up suggested if symptoms worsen. [facility] Medical History Snoring Low testosterone level in male Axillary abscess Left arm swelling Left arm pain Fatigue Hydrocele Varicocele Hypertension ADHD Need for assessment for sleep apnea Skin tag Wound check, abscess Abscess of left axilla Cellulitis Tinnitus Cyst of buttocks Suicidal ideation Class 1 obesity with body mass index (BMI) of 31.0 to 31.9 in adult Nicotine dependence Vertigo Hypertriglyceridemia Hyperlipidemia LDL goal <100 History of participation in smoking cessation counseling Pain in both testicles Chronic neck and back pain Chronic sinus complaints Asthma Insomnia Anxiety and depression Establishing care with new doctor, encounter for Bipolar 1 disorder Family History Father Type 2 diabetes mellitus Mother Plantar fasciitis, bilateral Social History Household Members: Significant Other Housing: House Do you presently have visiting nurse or other home services: No Alcohol intake: current Alcohol intake frequency: does not drink Patient Tobacco Use Status: Current everyday Tobacco user Tobacco use type: Cigarette e-Cigarette/Vaping Use: Currently Using Second Hand Smoke Exposure: Yes Substance Use Type: Marijuana service: No Current occupational status: employed Sexual orientation: Straight/Heterosexual Cognitive needs: No Hearing needs: No Vision needs: No Review of Systems Const All systems reviewed & are unremarkable except as noted in HPI and below Reports no additional complaints Eyes Reports no additional complaints ENT Reports no additional complaints Card Reports no additional complaints Resp Reports no additional complaints GI Reports no additional complaints Reports as per HPI Musc Reports no additional complaints Skin/Breast Reports system reviewed and no additional complaints, except as documented Neuro Reports no additional complaints Psych Reports no additional complaints Endo Reports no additional complaints Kong/Lymph Reports no additional complaints Aller/Immun Reports no additional complaints Physical Exam Const General: healthy appearing, no acute distress and well developed Orientation/consciousness: patient oriented x3 HEENT Head: Yes normocephalic and Yes atraumatic Eyes Conjunctivae: conjunctivae normal Neck Neck: Yes normal visual inspection Chest Chest palpation & inspection: normal inspection of the chest Resp Effort & Inspection: normal respiratory effort GI Inspection: Yes normal to inspection Penis: normal penis Scrotum: scrotum normal (no significant edema) Neuro General: patient oriented x3 Psych Appearance: grossly normal Affect: normal affect Results AMB Urinalysis, Automated UA Leukoctes 0 Cheyenne/uL Last Edit by Ora Gil on 03/05/25 16:12 UA Nitrite Negative Last Edit by Ora Gil on 03/05/25 16:12 UA Urobilinogen 0.2 mg/dL Last Edit by Ora Gil on 03/05/25 16:12 UA Protein 0 mg/dL Last Edit by Ora Gil on 03/05/25 16:12 UA pH 6.0 Last Edit by Ora Gil on 03/05/25 16:12 UA Blood 0 Chris/uL Last Edit by Ora Gil on 03/05/25 16:12 UA Specific Cygnet 1.005 Last Edit by Ora Gil on 03/05/25 16:12 UA Ketone Negative Last Edit by Ora Gil on 03/05/25 16:12 UA Bilirubin 0 mg/dL Last Edit by Ora Gil on 03/05/25 16:12 UA Glucose 0 mg/dL Last Edit by Ora Gil on 03/05/25 16:12 Results Reviewed Results Reviewed: Laboratory Last Values Urine pH (Auto) 6.0 03/05/25 12:47 Specific Cygnet (Auto) 1.005 03/05/25 12:47 Urine Protein (Auto) 0 mg/dL 03/05/25 12:47 Glucose (UA)(Auto) 0 mg/dL 03/05/25 12:47 Urine Ketones (Auto) Negative 03/05/25 12:47 Urine Blood (Auto) 0 Chris/uL 03/05/25 12:47 Urine Nitrite (Auto) Negative 03/05/25 12:47 Urine Bilirubin (Auto) 0 mg/dL 03/05/25 12:47 Urine Urobilinogen (Auto) 0.2 mg/dL 03/05/25 12:47 Leukocyte Esterase (Auto) 0 Cheyenne/uL 03/05/25 12:47 Date of Service: 12/24/24 EXAMINATION: US SCROTUM HISTORY: N50.811 - Right testicular pain. COMPARISON: There are no prior studies available for comparison. FINDINGS: Real-time grayscale ultrasound imaging of the scrotum was performed. RIGHT TESTICLE: The right testis measures 4.4 x 2.1 x 2.9 cm and demonstrates normal homogeneous echotexture. No masses are seen. The right testis demonstrates normal color Doppler flow. RIGHT EPIDIDYMIS: Normal in size, shape, and vascularity. LEFT TESTICLE: The left testis measures 4.5 x 1.9 x 2.9 cm and demonstrates normal homogeneous echotexture. No masses are seen. The left testis demonstrates normal color Doppler flow. LEFT EPIDIDYMIS: Normal in size, shape, and vascularity. VARICOCELE: There are small bilateral varicoceles. HYDROCELE: There are small bilateral hydroceles. OTHER COMMENTS: None. IMPRESSION: Small bilateral varicoceles and hydroceles. No testicular abnormality is identified. Assessment & Plan Assessment & Plan (1) Testicular pain, right: Code(s): N50.811 - Right testicular pain Category: Medical (2) Hidradenitis: Code(s): L73.2 - Hidradenitis suppurativa Category: Medical Plan Plan 1. Bilateral Varicoceles 2. Bilateral Hydroceles - Reassurance provided as ultrasound findings are not clinically significant. - Advised to monitor for any significant changes or symptoms. 3. Hidradenitis Suppurativa (scrotum) - Recommended keeping the area clean and dry to prevent exacerbation. - Advised use of talcum powder to reduce sweating and irritation. - Follow-up suggested if symptoms worsen. Orders: Orders AMB Urinalysis Automated 03/05/25 Z13.9 - Encounter for screening, unspecified Patient Instructions: The patient had an opportunity to ask questions regarding treatment plan. The patient expressed understanding and agreement with the above treatment plan. The patient is aware they should contact our office by phone for worsening of their current condition or the appearance of new symptoms. Compliance is encouraged with any medications and followup testing that is ordered. It is a privilege to be allowed the opportunity to participate in the urologic care of your patient. If you have any questions or concerns regarding treatment for the above conditions please do not hesitate to contact me. The office telephone contact is [phone]. This note is constructed in part using voice recognition software. While every effort has been made to ensure accuracy electrical logging engineer errors may have been inc luded. Yours sincerely, Johnny Enciso MD Scribe Plan - Not visible on output: Patient was informed and verbally consented to the use of an ambient scribe for clinic note documentation during this visit. Coding Level of Care Code New Pt Level 4 (38060) Diagnoses Testicular pain, right N50.811 Hidradenitis L73.2
--- OUTSIDE RECORDS SUMMARY | 2025-03-05 12:35 | XMS_ITS | Clinical Summary ---
Author Organization [facility] Address [address] [place] [phone] Phone Care Team Providers Care Water Hydrant Installer Name Role Phone Terry Logan MD Primary [...] on file Insurance PPO EPO PPO EPO [facility] PPO EPO [facility] PPO EPO PPO EPO [place] [address] [place] [address] [place] [address] [address] PPO EPO [facility] [place] [place] [address] [address] PPO EPO [facility] PPO EPO Care Teams Water Hydrant Installer Relationship Specialty Start Date End Date Terry Logan MD [address] [place] [id number] PCP - General Pediatrics 12/14/14 Additional Source Comments The information contained in this document represents components of the legal health record. It is not the complete legal health record.[facility]
== END 2025-03-05 11:46 | disposition home or self-care (01) ==
LOC: HO.HUSH 10:33
PROVIDERS: PCP Physician Assistant Medical; Visit Provider Urology
DX: Z13.9 Encounter for screening, unspecified (principal)

== ENCOUNTER → 2025-03-05 10:33 | Outpatient (BNVA) | payer BC, SELFPAY | PROVIDERS: PCP Physician Assistant Medical; Visit Provider Urology | DX: N50.811 Right testicular pain (principal) | CPT/HCPCS: 81003 ==

== ENCOUNTER 2025-04-15 15:19 | Outpatient (AMB) | payer BC, SELFPAY ==
--- NOTE | 2025-04-15 15:19 | MHC.PC.OV ---
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 Required: No Accompanied by: Self / Same As Patient Allergies aripiprazole Allergy (Verified 04/15/25 16:13) Depression sertraline (From Zoloft) Allergy (Verified 04/15/25 16:13) Depression Medication List - Last Reconciled 04/15/25 by Cassandra Mccoy PA-C albuterol sulfate 90 mcg/actuation 2 puffs inhalation Q6H PRN 30 days cetirizine (Zyrtec) 10 mg PO DAILY PRN fluticasone propionate 50 mcg/actuation 1 spray intranasal DAILY 30 days guanfacine ER 2 mg (2 x 1 mg) PO BEDTIME 30 days lamotrigine 200 mg PO DAILY lisdexamfetamine 40 mg PO DAILY olanzapine 15 mg PO BEDTIME prazosin 1 mg See Protocol PO BEDTIME 30 days trazodone 50 mg PO BEDTIME PRN 30 days Tobacco use date assessed: 02/18/25 Dental Screening Dental Screen Date: 02/18/25 HPI HPI Comments History of Present Illness Details History of Present Illness The patient is a 24 year old male presenting with a recent onset of severe gastrointestinal symptoms. He reports that approximately four to five days ago he developed severe acid reflux. This was followed by the onset of a sharp, stabbing pain in his left back/abdomen about one to two days ago, which is worse with standing, walking, and moving from a lying to sitting position. Associated symptoms include nausea, which he states is normal for him, and chills, which are new. He denies any fevers. He notes some temporary relief of pain after taking chewable Gas-X and after a bowel movement, but the pain returns. He also reports that pain is worse after eating greasy or fatty foods. The patient has a family history of Crohn's disease. He was recently seen by a vending mechanic who suspected a flat wart was an anal fistula potentially related to Crohn's disease. He has been on doxycycline three or four times this year for unspecified reasons. He is also awaiting a call from pulmonology for a sleep study. Social History - Employment: The patient is currently employed. - Education: The patient reports he will be starting school in the upcoming fall. [facility] Medical History (Updated 04/15/25 @ 16:06 by Cassandra Mccoy PA-C) LLQ abdominal pain Anal fissure and fistula Family history of Crohn's disease Snoring Low testosterone level in male Axillary abscess Left arm swelling Left arm pain Fatigue Hydrocele Varicocele Hypertension ADHD Need for assessment for sleep apnea Skin tag Wound check, abscess Abscess of left axilla Cellulitis Tinnitus Cyst of buttocks Suicidal ideation Class 1 obesity with body mass index (BMI) of 31.0 to 31.9 in adult Nicotine dependence Vertigo Hypertriglyceridemia Hyperlipidemia LDL goal <100 History of participation in smoking cessation counseling Pain in both testicles Chronic neck and back pain Chronic sinus complaints Asthma Insomnia Anxiety and depression Establishing care with new doctor, encounter for Bipolar 1 disorder Family History Father Type 2 diabetes mellitus Mother Plantar fasciitis, bilateral Social History Household Members: Significant Other Housing: House Do you presently have visiting nurse or other home services: No Alcohol intake: current Alcohol intake frequency: does not drink Patient Tobacco Use Status: Current everyday Tobacco user Tobacco use type: Cigarette e-Cigarette/Vaping Use: Currently Using Second Hand Smoke Exposure: Yes Substance Use Type: Marijuana service: No Current occupational status: employed Sexual orientation: Straight/Heterosexual Cognitive needs: No Hearing needs: No Vision needs: No Questionnaire PHQ-9 Over the last 2 weeks, how often have you been bothered by any of the following problems? 1. Little interest or pleasure in doing things: not at all 2. Feeling down, depressed, or hopeless: not at all 3. Trouble falling or staying asleep, or sleeping too much: more than half the days 4. Feeling tired or having little energy: not at all 5. Poor appetite or overeating: more than half the days 6. Feeling bad about yourself - or that you are a failure or have let yourself or your family down: not at all 7. Trouble concentrating on things, such as reading the newspaper or watching television: nearly every day 8. Moving or speaking so slowly that other people could have noticed. Or the opposite - being so fidgety or restless that you have been moving around a lot more than usual: nearly every day 9. Thoughts that you would be better off or of hurting yourself in some way: not at all Total score: 10 Depression Screening Interpretation: Positive Depression Screening Follow-up: Existing condition and In treatment Depression Screening Done: Yes 54370 - PHQ-9 Billing: Yes Source: Developed by Drs. Landon Tran, Waleska Muniz, Aryan Gleason and colleagues, with an educational scarlet from [employer]. Thrive Questionnaire Date Thrive assessed: 02/18/25 I am a: Patient What is your living situation today?: I have a steady place to live Within the past 12 months, did the food you bought not last and you didn't have the money to get more?: Never true Within the past 12 months, did you worry whether your food would run out before you got money to buy more?: Never true Do you have trouble paying for medicines?: No Do you have trouble getting transportation to medical appointments?: No Do you have trouble paying your heating and electricity bill?: No Do you have trouble taking care of your child, family member or friend?: No Do you have trouble with day-to-day activities such as bathing, preparing meals, shopping, managing finances, etc.?: No Are you currently unemployed and looking for a job?: No Are you interested in more education?: No Please select the resources that you would like help with: None Currently or been in a relationship where the following occur: No concerns reported THRIVE Score: 0 AUDIT C Alcohol Use Questionnaire (AUDIT-C) 1. How often do you have a drink containing alcohol?: Never 3. How often do you have six or more drinks on one occasion?: Never Total Score: 0 Score Reviewed/Action Taken: No WILD-7 AMB Questionnaire WILD-7 Date WILD - 7 assessed: 02/18/25 Feeling nervous, anxious, or on edge: 1 = Several days Not being able to stop or control worryin = Several days Worrying too much about different things: 0 = Not at all Trouble relaxin = Nearly every day Being so restless that it is hard to sit still: 3 = Nearly every day Becoming easily annoyed or irritable: 2 = More than half the days Feeling afraid as if something awful might happen: 0 = Not at all Total WILD-7 score (0-4 normal; 5-9 mild; 10-14 moderate; 15-21 severe): 10 Source: Developed by Drs. Landon Tran, Waleska Muniz, Aryan Gleason and colleagues, with an educational scarlet from [employer]. WILD-7 Assessment Billing WILD-7 Assessment Tool: WILD-7 Assessment 14883 Review of Systems Narrative Review of Systems - Constitutional: Reports chills and feeling unwell. - Denies fevers. - Gastrointestinal: Reports severe acid reflux starting 4-5 days ago, followed by sharp, stabbing, gas-like left-sided abdominal pain for the last 1-2 days. - Reports nausea, diarrhea, and pain worsening after greasy, fatty, or spicy foods. - Musculoskeletal: Reports pain on standing, walking, and changing positions such as going from lying to sitting. Const All systems reviewed & are unremarkable except as noted in HPI and below Physical exam (Primary Care) Vital Signs: Last Vital Signs Temp 98.4 F 04/15/25 15:20 Pulse 90 04/15/25 15:20 Resp 14 04/15/25 15:20 BP 138/80 04/15/25 15:20 Pulse Ox 98 04/15/25 15:20 Oxygen Delivery Method Room Air 04/15/25 15:20 Care Plan Goal for BP management: <140/90 at Goal BMI result Body Mass Index 35.6 BMI Assessment/Plan discussion: High BMI High, discussed plan: lifestyle, weight reduction, dietary, physical activity, alcohol moderation and other Tobacco/Smoking Status: Tobacco use Status Tobacco use date assessed 02/18/25 04/15/25 15:21 Patient Tobacco Use Status Current everyday Tobacco 04/15/25 15:21 Tobacco use type Cigarette 04/15/25 15:21 e-Cigarette/Vaping Use Currently Using 04/15/25 15:21 PHQ-9: PHQ-9 Score PHQ-9: Total score 10 04/15/25 15:48 Depression Screening Interpretation: Positive Depression Screening Follow-up: Existing condition and In treatment Thrive Assessment: Date of Thrive Assessment Date Thrive assessed 02/18/25 04/15/25 15:21 Currently or been in a relationship where the following occur: No concerns reported Narrative Physical Exam Appearance: Alert. Oriented X3. No acute distress. Patient appears pale and sweaty. Head: Normal external exam. Normocephalic. Atraumatic. Eyes: Pupils are equal, round, and reactive to light. Extraocular movements intact. Conjunctiva and sclera normal. Eyelids normal. Throat: Pharynx normal. Uvula midline. Moist mucous membranes. Neck: Normal inspection. Neck supple. Full range of motion. Cardiovascular: Normal heart rate and rhythm. Heart sound normal. No murmurs noted. Pulses normal throughout. Respiratory: No respiratory distress. Painless inspiration. Abdomen: Moderate tenderness to left upper quadrant and left lower quadrant. Soft. Bowel sounds normal in all 4 quadrants. No distention noted. No organomegaly noted. No visible injury noted. Back: Full range of motion noted. Skin: Skin warm and dry. Normal skin color. Normal skin turgor. No rashes/lesions/lacerations noted. Extremities: Extremities exhibit normal range of motion. Neuro: Oriented X 3. No motor deficit. No sensory deficit. Reflexes normal. Coding Level of Care Code Est Pt Level 5 (90201) Add On Problem Visit Only Diagnoses LLQ abdominal pain R10.32 Family history of Crohn's disease Z83.79 Anal fissure and fistula K60.2; K60.30 Additional Codes WILD-7 Assessment Billing - WILD-7 Assessment Tool: WILD-7 Assessment 55704 ([id number]) PHQ-9 - 57126 - PHQ-9 Billing: Yes ([id number]) Time Spent (min) 45 Assessment & Plan Assessment & Plan (1) LLQ abdominal pain: Code(s): R10.32 - Left lower quadrant pain Category: Medical Plan: The patient's presentation with acute, severe left lower quadrant pain, tenderness, and systemic signs such as pallor and chills raises high suspicion for an acute intra-abdominal process, with diverticulitis and a Crohn's disease flare as primary differentials. Given the concern for a possible abscess or perforation, and the patient's unwell appearance, outpatient management was deemed unsafe. The patient was advised to go directly to the emergency department at [facility] for immediate evaluation, including blood work and a CT scan of the abdomen. The ER will be contacted to provide a report and coordinate care. (2) Family history of Crohn's disease: Code(s): Z83.79 - Family history of other diseases of the digestive system Category: Medical Plan: The patient has a family history of Crohn's disease and was recently informed by a vending mechanic that an anal lesion could be a fistula related to Crohn's. A referral will be placed to Gastroenterology for further evaluation and long-term management, independent of the emergency department findings. (3) Anal fissure and fistula: Code(s): K60.2 - Anal fissure, unspecified; K60.30 - Anal fistula, unspecified Category: Medical Plan: Based on a recent dermatology consultation suggesting an anal fistula, a referral to General Surgery will be made for evaluation and potential excision, as they may offer a quicker appointment. Plan Plan Patient was informed and verbally consented to the use of an ambient scribe for clinic note documentation during this visit. 1. Left Lower Quadrant Abdominal Pain The patient's presentation with acute, severe left lower quadrant pain, tenderness, and systemic signs such as pallor and chills raises high suspicion for an acute intra-abdominal process, with diverticulitis and a Crohn's disease flare as primary differentials. Given the concern for a possible abscess or perforation, and the patient's unwell appearance, outpatient management was deemed unsafe. The patient was advised to go directly to the emergency department at [facility] for immediate evaluation, including blood work and a CT scan of the abdomen. The ER will be contacted to provide a report and coordinate care. 2. Suspected Crohn's Disease The patient has a family history of Crohn's disease and was recently informed by a vending mechanic that an anal lesion could be a fistula related to Crohn's. A referral will be placed to Gastroenterology for further evaluation and long-term management, independent of the emergency department findings. 3. Anal Fistula Based on a recent dermatology consultation suggesting an anal fistula, a referral to General Surgery will be made for evaluation and potential excision, as they may offer a quicker appointment. Discussion Notes I explained to the patient that his symptoms of severe left-sided abdominal pain are concerning for an acute infection, such as diverticulitis or a Crohn's disease flare. I discussed the potential for serious complications like an abscess or intestinal perforation, which would be a medical emergency. We initially considered outpatient treatment with antibiotics, blood work, and an outpatient CT scan, but I advised against it due to the potential delay in getting a CT scan and his concerning clinical appearance, including being pale, sweaty, and in significant pain. I strongly recommended he go directly from the office to the Emergency Department at [facility] for an immediate and thorough evaluation, with which he agreed. I informed him that I would call the ER to alert them of his arrival and my concerns. I also informed him that regardless of the ER outcome, I am placing referrals to Gastroenterology for his suspected Crohn's disease and to General Surgery for the anal fistula. I provided him with a work note and instructed him to contact us via the patient portal or phone after his ER visit for follow-up. Orders: Orders Comprehensive Met. Panel Today Z00.00 - Encounter for general adult medical examination without abnormal findings UA CC w/rflx Micro + Cult Today Z00.00 - Encounter for general adult medical examination without abnormal findings C Reactive Protein Today Z00.00 - Encounter for general adult medical examination without abnormal findings Complete Blood Count Auto Diff Today Z00.00 - Encounter for general adult medical examination without abnormal findings Erythrocyte Sedimentation Rate Today Z00.00 - Encounter for general adult medical examination without abnormal findings Magnesium Today Z00.00 - Encounter for general adult medical examination without abnormal findings Referrals General Surgery Referral K60.2 - Anal fissure, unspecified, K60.30 - Anal fistula, unspecified Gastroenterology Referral K60.2 - Anal fissure, unspecified, K60.30 - Anal fistula, unspecified, Z83.79 - Family history of other diseases of the digestive system Patient Instructions: Patient Instructions - Go directly to the [facility] Emergency Room now for your severe abdominal pain. - Inform the ER staff that your doctor sent you due to concern for a serious condition like diverticulitis or Crohn's disease. - Expect to have blood work and a CT scan at the hospital. - You must go to the ER if your pain gets worse or if you develop a fever. - A work note has been provided to excuse you from work while you are being evaluated. - After your visit to the ER, please contact our office through the patient portal or by phone to let us know the results and to arrange a follow-up appointment. - We have placed referrals for you to see a gut specialist (Gastroenterology) and a surgeon (General Surgery).
[2025-04-15 15:20] VITALS: BP 138/80; PULSE 90; RESP 14; TEMP 36.9; O2SAT 98; BMI 35.6
--- OUTSIDE RECORDS SUMMARY | 2025-04-15 20:21 | XMS_ITS | Clinical Summary ---
Author Organization [facility] Address [address] [place] [phone] Phone Care Team Providers Care Fermentation Manager Name Role Phone Terry Logan MD Primary [...] on file Insurance PPO EPO PPO EPO [facility] PPO EPO [employer] [facility] PPO EPO PPO EPO [place] [address] [place] [id number] [place] [address] [place] [id number] PPO EPO [facility] [place] [address] [place] [id number] [place] [address] [place] [id number] PPO EPO [employer] PPO EPO Care Teams Fermentation Manager Relationship Specialty Start Date End Date Terry Logan MD [address] [place] [id number] PCP - General Pediatrics 12/14/14 Additional Source Comments The information contained in this document represents components of the legal health record. It is not the complete legal health record.[facility]
== END 2025-04-15 16:09 | disposition home or self-care (01) ==
LOC: HO.HMCSH 15:19
PROVIDERS: PCP Physician Assistant Medical; Visit Provider Physician Assistant Medical
DX: R10.32 Left lower quadrant pain (principal); Z83.79 Family history of other diseases of the digestive system; K60.2 Anal fissure, unspecified; K60.30 Anal fistula, unspecified

== ENCOUNTER → 2025-04-15 15:19 | Outpatient (BNVA) | payer BC, SELFPAY | PROVIDERS: PCP Physician Assistant Medical; Visit Provider Physician Assistant Medical | DX: R10.32 Left lower quadrant pain (principal); K60.2 Anal fissure, unspecified; K60.30 Anal fistula, unspecified; Z83.79 Family history of other diseases of the digestive system | CPT/HCPCS: 96127 ==

== ENCOUNTER 2025-04-15 16:26 | Emergency (ER) | payer BC, SELFPAY ==
--- NOTE | ~2025-04-15 | CT_ITS ---
CLINICAL HISTORY: diverticulitis CT abdomen and pelvis with contrast Comparison: None provided Findings: Two small nodules in the left lower lobe measuring up to 4 mm, these are typically postinflammatory. There is a small accessory splenule. Hepatic steatosis. Gallbladder, pancreas, and adrenal glands are within normal limits. No hydronephrosis. Symmetric contrast enhancement of the kidneys. Column of Ramses in the left kidney. Small focal area of pericolonic fat stranding in the left lower quadrant. No diverticula. No bowel obstruction, pneumatosis or pneumoperitoneum. Pelvic contents unremarkable. Normal appendix. Trace free fluid in the pelvis may be reactive to inflammation. The bones are intact. IMPRESSION: Epiploic appendagitis in the left lower quadrant. This document has been electronically signed by: Meli Aguilar MD on 04/15/2025 22:31:29
--- NOTE | 2025-04-15 16:34 | ED.GENADULT ---
HPI - General Adult General Chief complaint: Abdominal Pain Stated complaint: abd pain sent by Dr for CT Time Seen by Provider: 04/15/25 19:21 Source: patient Mode of arrival: ambulatory Limitations: no limitations History of Present Illness ED Provider: Dr. Browning HPI narrative: 24-year-old male presented hospital today for left lower quadrant abdominal pain. Patient stated that he has been investigate for possible Crohn's disease. Patient stated that he was sent in by primary care doctor for CT imaging for evaluation of the possible diverticulitis. Related Data Home Medications ?Medication ?Instructions ?Recorded ?Confirmed lamotrigine 200 mg tablet 200 mg PO DAILY 01/14/25 04/15/25 olanzapine 15 mg tablet 15 mg PO BEDTIME 01/14/25 04/15/25 lisdexamfetamine 40 mg capsule 40 mg PO DAILY 04/15/25 04/15/25 Previous Rx's ?Medication ?Instructions ?Recorded albuterol sulfate 90 mcg/actuation 2 puff inhalation Q6H PRN wheezing 10/16/24 aerosol inhaler 30 days #8.5 grams fluticasone propionate 50 1 spray intranasal DAILY 30 days 10/16/24 mcg/actuation nasal #16 grams spray,suspension prazosin 1 mg capsule 1 mg PO BEDTIME 30 days #30 caps 10/16/24 trazodone 50 mg tablet 50 mg PO BEDTIME PRN Insomnia 30 10/16/24 days #30 tabs cetirizine 10 mg tablet (Zyrtec) 10 mg PO DAILY PRN Allergy 01/14/25 Symptoms #90 tabs guanfacine 1 mg tablet,extended 2 mg (2 x 1 mg) PO BEDTIME 30 days 01/14/25 release 24 hr #60 tabs Allergies Allergy/AdvReac Type Severity Reaction Status Date / Time aripiprazole Allergy Depression Verified 04/15/25 16:35 sertraline (From Zoloft) Allergy Depression Verified 04/15/25 16:35 Review of Systems Review of Systems: Pertinent review of systems as mentioned in [facility]. All other system otherwise negative. [facility] Past Medical History [facility] Narrative: Medical history as mentioned in [facility] Medical History (Updated 04/15/25 @ 22:56 by Nancy Browning, ) LLQ abdominal pain Anal fissure and fistula Family history of Crohn's disease Snoring Low testosterone level in male Axillary abscess Left arm swelling Left arm pain Fatigue Hydrocele Varicocele Hypertension ADHD Need for assessment for sleep apnea Skin tag Wound check, abscess Abscess of left axilla Cellulitis Tinnitus Cyst of buttocks Suicidal ideation Class 1 obesity with body mass index (BMI) of 31.0 to 31.9 in adult Nicotine dependence Vertigo Hypertriglyceridemia Hyperlipidemia LDL goal <100 History of participation in smoking cessation counseling Pain in both testicles Chronic neck and back pain Chronic sinus complaints Asthma Insomnia Anxiety and depression Establishing care with new doctor, encounter for Bipolar 1 disorder Family History Family History Father Type 2 diabetes mellitus Mother Plantar fasciitis, bilateral Social History Social History Household Members: Significant Other Housing: House Do you presently have visiting nurse or other home services: No Alcohol intake: current Alcohol intake frequency: does not drink Patient Tobacco Use Status: Current everyday Tobacco user Tobacco use type: Cigarette e-Cigarette/Vaping Use: Currently Using Second Hand Smoke Exposure: Yes Substance Use Type: Marijuana service: No Current occupational status: employed Sexual orientation: Straight/Heterosexual Cognitive needs: No Hearing needs: No Vision needs: No Physical Exam ED Exam Exam: General: Pleasant, no distress, interacting appropriately Head: Normacephalic, atraumatic ENT: oral mucosa moist, neck supple, no tracheal deviation Gastrointestinal: Soft, non distended, left lower quadrant tenderness on palpation Neurological: Awake and alert, no facial droop noted Skin: Warm and dry Psychiatric: Appropriate mood and thoughts Vital Signs: Vital Signs - 24 hr 04/15/25 16:35 04/15/25 21:35 04/15/25 23:01 Temperature 98 F 97.9 F 97.9 F Pulse Rate 86 76 76 Respiratory Rate 16 16 16 Blood Pressure 153/94 H 125/82 125/82 Pulse Oximetry 97 97 97 Oxygen Delivery Method Room Air Room Air Room Air BMI result Body Mass Index 35.2 Course Course Course Narrative: This is a rapid medical exam performed by Jeremy Goetz NP: Additional HPI, ROS, PE not included below will be deferred to primary provider. Patient is a 24-year old male referred to the ED from PCP (Cassandra) with complaint of left sided abdominal pain x 2 days. Had 3 BMs today which he describes as round little balls. PCP was going to treat for diverticulitis but due to TTP, felt he may need imaging. Also has known anal fissure and fistula. Plan: labs, UA Medications Administered Discontinued Medications Generic Name Dose Route Start Last Admin Trade Name Ivan PRN Reason Stop Dose Admin Sodium Chloride 500 mls @ 500 mls/hr 04/15/25 20:15 04/15/25 21:34 Ns IV 04/15/25 21:14 Infused .Q1H CHEMA Infusion Iohexol 85 ml 04/15/25 21:02 04/15/25 21:02 Iohexol 350 Mg/Ml 100 Ml Infus..Btl IV 04/15/25 21:03 85 ml ONCE ONE Administration Ondansetron HCl 4 mg 04/15/25 20:04 04/15/25 20:28 Ondansetron Hcl 4 Mg/2 Ml Vial IVPUSH 04/15/25 20:05 4 mg ONCE ONE Administration Medical Decision Making Medical Decision Making [facility] Narrative: This is a 24-year-old male presented hospital today for left lower quadrant abdominal pain. We will plan to obtain a CT imaging per the patient's request. Patient does have level of quadrant tenderness. IV fluid be given to the patient IV Zofran be given the patient as well. No sign of leukocytosis on lab work. Chemistries shows mild transaminitis. Patient stated that he is feeling better. Patient's CT imaging shows epiploic appendagitis. CT report given to the patient. Encouraged to follow up with his primary care doctor. He agrees and understands this plan. Differential Diagnosis Differential Diagnoses: The differential diagnosis associated with the presentation includes Diverticulitis, colitis, Crohn's disease, gastroenteritis Lab Data [facility] Lab Attestation statement: I reviewed the patient's lab results. 04/15/25 16:48 04/15/25 16:48 Labs: Lab Results 04/15/25 04/15/25 Range/Units 16:48 21:39 WBC 9.1 (4.8-10.8) X10*3/uL RBC 5.09 (4.60-5.80) X10*6/uL Hgb 15.4 (14.0-18.0) g/dl Hct 42.0 (42.0-52.0) % MCV 82.5 (80.0-98.0) fL MCH 30.3 (27.0-33.0) pg MCHC 36.7 H (31.0-36.0) g/dl RDW 12.7 (11.0-16.0) % Plt Count 354 (160-400) X10*3/uL MPV 9.7 (9.4-12.4) fL Immature Gran % (Auto) 0.2 (0.0-0.4) % Neut % (Auto) 61.6 (45-73) % Lymph % (Auto) 29.4 (20-40) % [place] % (Auto) 7.6 (2-11) % Eos % (Auto) 0.7 (0-4) % Baso % (Auto) 0.5 (0-2) % Lymph # (Auto) 2.7 (1.2-4.9) X10*3/uL [place] # (Auto) 0.7 (0.1-1.2) X10*3/uL Eos # (Auto) 0.1 (0.0-0.4) X10*3/uL Baso # (Auto) 0.1 (0.0-0.2) X10*3/uL Abs Immat Gran (auto) 0.02 (0.00-0.03) X10*3/uL Absolute Neuts (auto) 5.6 (2.0-8.3) x10*3/uL Absolute Nucleated RBC 0.000 (0.0-0.012) X10*3/uL Nucleated RBC % (auto) 0.0 (0.0-0.2) /100WBC Sodium 140 (135-145) mmol/L Potassium 4.0 (3.3-5.1) mmol/L Chloride 104 (96-108) mmol/L Carbon Dioxide 27 (22-29) mmol/L Anion Gap 13 (12-20) BUN 11 (9-16) mg/dL Creatinine 1.05 (0.5-1.4) mg/dL Estim Creat Clear Calc 135.4 Estimated GFR > 60 Random Glucose 103 (60-115) mg/dL Calcium 9.6 (8.4-10.2) mg/dL Total Bilirubin 0.4 (0.0-1.0) mg/dL AST 43 H (5-37) U/L ALT 86 H (0-40) U/L Alkaline Phosphatase 59 (39-117) U/L Total Protein 7.7 (6.5-8.0) g/dL Albumin 4.8 (3.5-5.0) g/dL Lipase 21 (8-78) U/L Urine Color Yellow Urine Appearance Clear Urine pH 5.5 (5.0-9.0) Ur Specific Speculator >= 1.030 H (1.005-1.025) Urine Protein Negative (Neg-Trace) mg/dL Urine Glucose (UA) Negative (Negative) mg/dL Urine Ketones Negative (Negative) mg/dL Urine Blood Negative (Negative) Urine Nitrite Negative (Negative) Ur Leukocyte Esterase Negative (Negative) Independent Interpretation I performed an independent interpretation of an: CT Scan Radiology Impression Discussion of test interpretation with radiology: I have reviewed the radiologist's reading. Discharge Plan Discharge Clinical Impression: Epiploic appendagitis Patient Disposition: Home, Self-Care Additional Instructions: Take tylenol and ibuprofen as needed for your pain. Follow up with your primary care doctor. Prescriptions: No Action prazosin 1 mg Capsule 1 mg PO BEDTIME 30 Days Qty: 30 0RF Protocol: Hold for SBP< HOLD for SBP < : 90 fluticasone propionate 50 mcg/actuation [place],Suspension 1 spray intranasal DAILY 30 Days Qty: 16 0RF trazodone 50 mg Tablet 50 mg PO BEDTIME PRN (Reason: Insomnia) 30 Days Qty: 30 0RF albuterol sulfate 90 mcg/actuation HFA aerosol inhaler 2 puff INHALATION Q6H PRN (Reason: wheezing) 30 Days Qty: 8.5 0RF lamotrigine 200 mg tablet 200 mg PO DAILY olanzapine 15 mg tablet 15 mg PO BEDTIME guanfacine 1 mg tablet extended release 24 hr 2 mg PO BEDTIME 30 Days Qty: 60 0RF cetirizine [Zyrtec] 10 mg tablet 10 mg PO DAILY PRN (Reason: Allergy Symptoms) Qty: 90 3RF lisdexamfetamine 40 mg capsule 40 mg PO DAILY Interventions: ED Discharge Assessment Last Done: 04/15/25 23:01 Discharge Date/Time: 04/15/25 23:01 Print Language: Armenian
[2025-04-15 16:35] VITALS: BP 153/94; PULSE 86; RESP 16; TEMP 36.6; O2SAT 97; BMI 35.2
[2025-04-15 16:55] LABS: MANUAL DIFF FLAG NO
[2025-04-15 17:00] LABS: Hematocrit 42.0 % (42.0-52.0); Hemoglobin 15.4 g/dl (14.0-18.0); Imm Gran Abs Auto 0.02 X10*3/uL (0.00-0.03); Imm Gran Pct Auto 0.2 % (0.0-0.4); Lymphocytes Absolute Auto 2.7 X10*3/uL (1.2-4.9); Mean Corpuscular HGB Conc 36.7 g/dl (31.0-36.0); Mean Corpuscular Hemoglobin 30.3 pg (27.0-33.0); Mean Corpuscular Volume 82.5 fL (80.0-98.0); NRBC Abs Auto 0.000 X10*3/uL (0.0-0.012); NRBC Pct Auto 0.0 /100WBC (0.0-0.2); Platelet Count 354 X10*3/uL (160-400); Red Blood Count 5.09 X10*6/uL (4.60-5.80); White Blood Count 9.1 X10*3/uL (4.8-10.8)
[2025-04-15 17:14] LABS: Alanine Aminotransferase 86 U/L (0-40); Albumin Level 4.8 g/dL (3.5-5.0); Alkaline Phosphatase 59 U/L (39-117); Anion Gap 13 (12-20); Aspartate Amino Transferase 43 U/L (5-37); Blood Urea Nitrogen 11 mg/dL (9-16); Calcium 9.6 mg/dL (8.4-10.2); Carbon Dioxide 27 mmol/L (22-29); Chloride 104 mmol/L (96-108); Creatinine Clr Calc Pharmacy 135.4; Estimated Glomerular Filt Rate > 60; Lipase 21 U/L (8-78); Potassium 4.0 mmol/L (3.3-5.1); Sodium 140 mmol/L (135-145); Total Protein 7.7 g/dL (6.5-8.0)
--- NOTE | 2025-04-15 20:16 | PC.NURSE ---
Pt ambulatory to ED 25 for treatment. A&Ox3 skin pwd respirations even unlabored. Endorsing left sided abd pain x few days. Intermittent and non radiating. Nausea no vomiting, loose stool. Subjective low grade temp. Denies urinary symptoms. IV access obtained.Medicated per JUN.
[2025-04-15] MEDS: iohexoL 350 MG/ML 100 ML INFUS..BTL 85 ML IV (21:02)
[2025-04-15 21:35] VITALS: BP 125/82; PULSE 76; RESP 16; TEMP 36.6; O2SAT 97
[2025-04-15 21:52] LABS: Appearance Urine Clear; Glucose Urine UA Negative (Negative); PH 5.5 (5.0-9.0); Specific Gravity - Urine >= 1.030 (1.005-1.025)
[2025-04-15 23:01] VITALS: BP 125/82; PULSE 76; RESP 16; TEMP 36.6; O2SAT 97
== END 2025-04-15 23:01 | disposition home or self-care (01) ==
PROVIDERS: Registered Nurse Emergency; Emergency Provider Student in an Organized Health Care Education/Training Program; PCP Physician Assistant Medical
DX: K63.89 Other specified diseases of intestine (principal); R10.32 Left lower quadrant pain; I10 Essential (primary) hypertension; E78.5 Hyperlipidemia, unspecified
CPT/HCPCS: 36415; 74177; 80053; 81003; 83690; 85025; 96361; 96374; 99284; 99285; J2405; Q9967

== ENCOUNTER → 2025-04-15 20:03 | Outpatient (BNV) | payer BC, SELFPAY | PROVIDERS: Emergency Provider Student in an Organized Health Care Education/Training Program; PCP Physician Assistant Medical; Visit Provider Radiology Diagnostic Radiology | DX: K57.92 Diverticulitis of intestine, part unspecified, without perforation or abscess without bleeding (principal); K65.9 Peritonitis, unspecified | CPT/HCPCS: 74177 ==